=== PATIENT | female | born 1945 | race Two or more races ===

== ENCOUNTER 2021-12-11 11:16 | Inpatient (IN) | payer MEDICARE, OTHER ==
[~2021-12-11] VITALS: Ht 167.6 cm; Wt 115.7 kg
[2021-12-11] MEDS ORDERED: IV NS 0.9% 1,000 ML BAG IV ONE (11:30)
--- NOTE | 2021-12-11 11:49 | NUR ---
[id number] C/O ALTERED MENTAL STATUS, TACHY, FEBRILE. COLOSTOMY BAG L SIDE OF ABDOMEN. PT ATTCHED TO MONITOR. WARM BLANKET PROVIDED FOR COMFORT. WILL CONTINUE TO MONITOR.
[2021-12-11] MEDS ORDERED: MEROPENEM 1,000 MG in IV NS 0.9% 100 ML IV ONE (12:00)
[2021-12-11] MEDS ORDERED: ACETAMINOPHEN 650 MG/SUPP.RECT RC ONE ×2 (12:00→12:06)
[2021-12-11] MEDS ORDERED: VANCOMYCIN 1.5 GM in IV D5W 500 ML IV ONE (12:00)
[2021-12-11 12:13] LABS: BASOPHILS # (AUTO) 0.1 K/uL (0.0-0.2); BASOPHILS % (AUTO) 0.4 % (0.0-2.0); EOSINOPHILS % (AUTO) 0.3 % (0.0-6.0); HEMATOCRIT 34 % (33-45); HEMOGLOBIN 10.8 g/dL (11.5-14.8); LYMPHOCYTES # (AUTO) 1.7 K/uL (0.8-4.8); LYMPHOCYTES % (AUTO) 7.9 % (20.0-44.0); MEAN CORPUSCULAR HGB CONC 32 g/dl (31.0-36.0); MEAN CORPUSCULAR VOLUME 91 fL (82-100); MONOCYTES # (AUTO) 1.1 K/uL (0.1-1.30); MONOCYTES % (AUTO) 5.1 % (2.0-12.0); NEUTROPHILS # (AUTO) 18.5 K/uL (1.8-8.9); NEUTROPHILS % (AUTO) 86.3 % (43.0-81.0); PLATELET COUNT (AUTO) 375 K/uL (150-450); RED BLOOD CELL COUNT(AUTO) 3.75 MIL/uL (4.0-5.2); WHITE BLOOD COUNT (AUTO) 21.5 K/uL (4.3-11.0)
[2021-12-11 12:23] LABS: CALCIUM, SERUM 8.5 mg/dL (8.5-10.1); CARBON DIOXIDE 28 mmol/L (21-32); CHLORIDE 100 mmol/L (98-107); CREATININE 1.4 mg/dL (0.6-1.3); GLUCOSE 158 mg/dL (74-106); POTASSIUM 3.9 mmol/L (3.5-5.1); SODIUM SERUM 136 mmol/L (136-145); UREA NITROGEN, BLOOD 16 mg/dL (7-18)
[2021-12-11] MEDS ORDERED: AMMO225L14 TP (12:28)
[2021-12-11] MEDS ORDERED: DULO60CA64 PO (12:28)
[2021-12-11] MEDS ORDERED: LEVO50TA8 PO (12:28)
[2021-12-11] MEDS ORDERED: ACET-868 PO (12:28)
[2021-12-11] MEDS ORDERED: HEPA50008 SQ (12:28)
[2021-12-11] MEDS ORDERED: MORP2VIA IV (12:28)
[2021-12-11] MEDS ORDERED: CALC500T13 PO (12:28)
[2021-12-11] MEDS ORDERED: TPN ADD IV (12:28)
[2021-12-11] MEDS ORDERED: LANS30CA56 PO (12:28)
[2021-12-11 12:37] LABS: ALANINE AMINOTRANSFERASE 20 U/L (12-78); ALBUMIN 2.1 g/dL (3.4-5.0); ALKALINE PHOSPHATASE 77 U/L (46-116); ASPARTATE AMINOTRANSFERASE 17 U/L (15-37); BILIRUBIN,DIRECT 0.2 mg/dL (0.0-0.2); BILIRUBIN,TOTAL 0.6 mg/dL (0.2-1.0); TOTAL PROTEIN, SERUM 7.6 g/dL (6.4-8.2)
--- NOTE | 2021-12-11 12:49 | NUR ---
CALLED NURSING SUP FOR TELE BED.
--- NOTE | 2021-12-11 12:59 | NUR ---
COVID SWAB DONE AND SENT TO LAB
[2021-12-11] MEDS ORDERED: CALCIUM CARBONATE 500 MG TAB.CHEW PO PRN (13:00)
[2021-12-11] MEDS ORDERED: ONDANSETRON HCL/PF 4 MG/2 ML VIAL IVP PRN (13:00)
[2021-12-11] MEDS ORDERED: MAGNESIUM HYDROXIDE 30 ML UDC PO PRN (13:00)
[2021-12-11] MEDS ORDERED: MAG HYDROX/AL HYDROX/SIMETH 30 ML UDC PO PRN (13:00)
[2021-12-11] MEDS ORDERED: Z GUARD REMEDY 4 OZ OINT TP PRN (13:00)
[2021-12-11] MEDS ORDERED: ACETAMINOPHEN 325 MG TABLET PO PRN ×2 (13:00)
[2021-12-11] MEDS ORDERED: CEFEPIME 1 GM in IV D5W 50 ML IV SCH (13:00)
[2021-12-11] MEDS ORDERED: Medication Not On Formulary EA (Amino Acids 4.25%/D10w (Tpn Additives) 1 EA) IV SCH (13:00)
[2021-12-11] MEDS ORDERED: ZOLPIDEM TARTRATE 5 MG TABLET PO PRN (13:00)
[2021-12-11] MEDS ORDERED: HYDROCODONE/APAP 10/325MG TABLET PO PRN (13:00)
--- NOTE | 2021-12-11 14:44 | NUR ---
NURSING SUP GAVE TELE BED 117-1.
--- NOTE | 2021-12-11 15:05 | NUR ---
ATTEMPTED TO GIVE REPORT TO NURSE CONCEPCION, CURRENTLY ASSISTING A CRITICAL PATIENT, WILL CALL AGAIN
--- NOTE | 2021-12-11 15:37 | NUR ---
REPORT GIVEN TO DARLINE FOR FANI
--- NOTE | 2021-12-11 16:50 | NUR ---
PT TRANSFERRED TO ASSIGNED BED IN STABLE CONDITION WITH ACLS PROTOCOLS IN PLACE
--- NOTE | 2021-12-11 16:55 | NUR ---
RN NOTES PATIENT TRANSFERRED TO UNIT AT ROOM 117-2 [facility] [place], ACCOMPANIED BY 2 ER NURSES.
[2021-12-11] MEDS: IV NS 0.9% 1,000 ML IV PRN (17:32)
[2021-12-11] MEDS: CEFEPIME 2 GM in IV D5W 100 ML IV SCH (17:32)
--- NOTE | 2021-12-11 18:45 | NUR ---
RN NOTES PATIENT ABLE TO ASSIST W/ REPOSITIONING IN BED. A/O X2-3, AWARE OF SURROUNDINGS, NO CONFUSION NOTED. PICC LINE ON ALICJA INTACT AND PATENT, IVF STARTED AND INFUSING WELL. 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 COLOSTOMY INTACT AND PATENT ON LEFT LOWER ABDOMINAL SIDE. SAFETY MEASURES IN PLACE. CALL LIGHT PLACED W/IN REACH OF PATIENT.
--- NOTE | 2021-12-11 19:20 | NUR ---
RN NOTE RECEIVED PATIENT IN BED RESTING ALERT ORIENTED X2 VERBALLY RESPONSIVE ON ROOM AIR IV SITE IS ON RIGHT UPPER ARM PICC LINE INTACT PATENT ON IV HYDRATION NS 75CC/HR SAFETY MEASURE IMPLEMENT BED IN LOW POSITON AND LOCKED HEAD OF THE BED ELEVATED,CALL LIGHT WITHIN REACH CONTINUE TO MONITOR.
[2021-12-11 20:00] VITALS: BP 92/63
[2021-12-11] MEDS: HEPARIN SODIUM, PORCINE 5000 UNITS/1 ML VIAL SQ SCH (20:15)
[2021-12-12] VITALS: BP 129/72
[2021-12-12 04:00] VITALS: BP 105/64
--- NOTE | 2021-12-12 07:30 | NUR ---
RN NOTE PATIENT REMAINS ON ALERT ORIENTED X2 VERBALLY RESPONSIVE ON ROOM AIR NO SOB NOT ACUTE DISTRESS NOTED KEPT CLEAN AND DRY ALL THE TIME ENDORSE NEXT COMING SHIFT FOR CONTINUATION OF CARE
[2021-12-12] MEDS: LEVOTHYROXINE SODIUM 50 MCG TABLET PO SCH (07:32)
[2021-12-12] MEDS: PANTOPRAZOLE 40 MG TABLET.DR PO SCH (07:32)
[2021-12-12] MEDS: IV NS 0.9% 1,000 ML IV PRN (07:33)
[2021-12-12 07:41] LABS: BASOPHILS % (AUTO) 0.4 % (0.0-2.0); EOSINOPHILS % (AUTO) 1.9 % (0.0-6.0); HEMATOCRIT 34 % (33-45); LYMPHOCYTES # (AUTO) 1.2 K/uL (0.8-4.8); LYMPHOCYTES % (AUTO) 11.5 % (20.0-44.0); MEAN CORPUSCULAR HGB CONC 32 g/dl (31.0-36.0); MEAN CORPUSCULAR VOLUME 90 fL (82-100); MONOCYTES # (AUTO) 0.7 K/uL (0.1-1.30); MONOCYTES % (AUTO) 6.9 % (2.0-12.0); NEUTROPHILS # (AUTO) 8.5 K/uL (1.8-8.9); NEUTROPHILS % (AUTO) 79.3 % (43.0-81.0); PLATELET COUNT (AUTO) 311 K/uL (150-450); RED BLOOD CELL COUNT(AUTO) 3.78 MIL/uL (4.0-5.2); WHITE BLOOD COUNT (AUTO) 10.7 K/uL (4.3-11.0)
[2021-12-12 08:00] VITALS: BP 110/54
--- NOTE | 2021-12-12 08:01 | NUR ---
RN OPENING NOTES RECIEVED PT IN BED AWAKE A/O X2-3. PT IS ON RA SATING AT 100%. NO S/S OF RESP DISTRESS OR C/O OF PAIN AT THIS TIME. IV ACCESS IS AT ALICJA Addendum: 12/12/21 at 0805 by AGNES TOBIN RN CONTINUED... ALICJA PICC RUNNING NS AT 75 ML/HR. ALL SAFETY MEASURES IN PLACE, BED IN LOWEST LOCKED POSITION, SR U X2, CALL LIGHT WITHIN REACH. WILL CONTINUE TO MONITOR THROUGHOUT SHIFT.
[2021-12-12 08:09] LABS: CALCIUM, SERUM 7.9 mg/dL (8.5-10.1); CREATININE 1.1 mg/dL (0.6-1.3); MAGNESIUM 2.1 mg/dL (1.8-2.4); PHOSPHORUS 3.5 mg/dL (2.5-4.9); POTASSIUM 3.5 mmol/L (3.5-5.1)
[2021-12-12] MEDS: DULOXETINE HCL 30 MG CAPSULE.DR PO SCH (08:18)
[2021-12-12] MEDS: HEPARIN SODIUM, PORCINE 5000 UNITS/1 ML VIAL SQ SCH ×2 (08:19→21:19)
[2021-12-12] MEDS: AMMONIUM LACTATE 227 GM BOTTLE TP SCH (08:33)
--- NOTE | 2021-12-12 09:23 | NUR ---
WOUND CARE CONSULT: RECEIVED CONSULT FOR SACRAL WOUND BUT NO SACRAL WOUND NOTED. PT NOTED TO BE OBESE WITH SOME SKIN DISCOLORATION TO ABDOMEN AND BUTTOCKS/THIGHS AND LOWER LEGS WITH DRY SCRATCH BARRIOS ON THIGHS, PRESENT ON ADMISSION. ILEOSTOMY NOTED. PT IS INCONTINENT. RECOMMENDATIONS MADE FOR SKIN PROTECTION AND DISCUSSED WITH NURSING STAFF.MD IN AGREEMENT WITH PLAN OF CARE.
[2021-12-12 12:00] VITALS: BP 116/62
[2021-12-12] MEDS: VANCOMYCIN 1.25 GM in IV D5W 250 ML IV SCH (14:36)
[2021-12-12 16:19] VITALS: BP 107/66
[2021-12-12] MEDS: CEFEPIME 2 GM in IV D5W 100 ML IV SCH (16:32)
--- NOTE | 2021-12-12 18:04 | NUR ---
RN CLOSING NOTES PT IS IN BED RESTING, A/O X 3, NO S/S OF RESP DISTRESS OR C/O PAIN AT THIS TIME. PT TOLERATED ALL TREATMENTS. PT IS ON RA SATING AT 100%. IV ACCESS AT ALICJA WITH NS RUNNING AT 75CC/HR. FLUSHING WELL AND PATENT. ALL SAFETY MEASURES IN PLACE, BED IN LOWEST LOCKED POSITION, SR UP X 2, CALL LIGHT WITHIN REACH. WILL ENDORSE TO LINOTYPE MACHINIST NURSE FOR FANI.
--- NOTE | 2021-12-12 19:40 | NUR ---
RN OPENING NOTES RECEIVED PT IN BED AWAKE, A/O X 2-3 AND VERBALLY RESPONSIVE. ON ROOM AIR AND PT TOLERATED WELL. BREATHING EVEN AND UNLABORED. IV ACCESS ON ALICJA PICC WITH NS RUNNING AT 75CC/HR. NO BLEEDING NOTED. NO C/O PAIN OR DISCOMFORT. NO ACUTE DISTRESS. ALL SAFETY MEASURES IN PLACE, BED IN LOWEST POSITION AND LOCKED. SIDE RAILS UP X2, PLACE CALL LIGHT WITHIN REACH. WILL CONTINUE TO MONITOR
[2021-12-12 20:00] VITALS: BP 110/64
[2021-12-13] VITALS: BP 117/58
[2021-12-13] MEDS: IV NS 0.9% 1,000 ML IV PRN ×2 (01:30→15:26)
[2021-12-13 04:00] VITALS: BP 106/53
--- NOTE | 2021-12-13 06:40 | NUR ---
RN CLOSING NOTES PT IN BED SLEEPING, BUT AROUSABLE, A/O X 2-3 AND VERBALLY RESPONSIVE. ON ROOM AIR, O2 SAT 99% AND PT TOLERATED WELL. BREATHING EVEN AND UNLABORED. NO SOB NOTED. IV ACCESS ON ALICJA PICC WITH NS RUNNING AT 75CC/HR. NO BLEEDING NOTED. NO C/O PAIN OR DISCOMFORT. NO ACUTE DISTRESS. DUE MED GIVEN ORDERED. COOPERATIVE WITH CARE. NOTED LEFT LOWER WITH COLOSTOMY BAG, EMPTIED, 400CC OUTPUT. ALL SAFETY MEASURES IN PLACE, BED IN LOWEST POSITION AND LOCKED. SIDE RAILS UP X2, PLACE CALL LIGHT WITHIN REACH. WILL ENDORSE TO MORNING SHIFT NURSE.
[2021-12-13 07:18] LABS: BASOPHILS # (AUTO) 0.1 K/uL (0.0-0.2); BASOPHILS % (AUTO) 0.6 % (0.0-2.0); EOSINOPHILS % (AUTO) 3.2 % (0.0-6.0); HEMATOCRIT 30 % (33-45); HEMOGLOBIN 9.8 g/dL (11.5-14.8); LYMPHOCYTES # (AUTO) 1.3 K/uL (0.8-4.8); LYMPHOCYTES % (AUTO) 13.4 % (20.0-44.0); MEAN CORPUSCULAR HGB CONC 32 g/dl (31.0-36.0); MEAN CORPUSCULAR VOLUME 89 fL (82-100); MONOCYTES # (AUTO) 0.5 K/uL (0.1-1.30); MONOCYTES % (AUTO) 5.4 % (2.0-12.0); NEUTROPHILS # (AUTO) 7.7 K/uL (1.8-8.9); NEUTROPHILS % (AUTO) 77.4 % (43.0-81.0); PLATELET COUNT (AUTO) 366 K/uL (150-450)
--- NOTE | 2021-12-13 07:30 | NUR ---
RN OPENING NOTE PT IN BED SLEEPING, BUT AROUSABLE, A/O X 2-3 AND VERBALLY RESPONSIVE. ON ROOM AIR, O2 SAT 99% AND PT TOLERATING WELL. BREATHING EVEN AND UNLABORED. NO SOB NOTED. IV ACCESS ON ALICJA PICC WITH NS RUNNING AT 75CC/HR. NO BLEEDING NOTED. NO C/O PAIN OR DISCOMFORT. NO ACUTE DISTRESS. NOTED LEFT LOWER WITH COLOSTOMY BAG. ALL SAFETY MEASURES IN PLACE, BED IN LOWEST POSITION AND LOCKED. SIDE RAILS UP X2, PLACE CALL LIGHT WITHIN REACH. WILL CONTINUE TO MONITOR.
[2021-12-13 07:31] LABS: CALCIUM, SERUM 7.2 mg/dL (8.5-10.1); CREATININE 0.9 mg/dL (0.6-1.3); POTASSIUM 3.4 mmol/L (3.5-5.1)
[2021-12-13] MEDS: LEVOTHYROXINE SODIUM 50 MCG TABLET PO SCH (07:43)
[2021-12-13] MEDS: PANTOPRAZOLE 40 MG TABLET.DR PO SCH (07:43)
[2021-12-13 08:00] VITALS: BP 106/75
[2021-12-13] MEDS: HEPARIN SODIUM, PORCINE 5000 UNITS/1 ML VIAL SQ SCH ×2 (09:53→21:22)
[2021-12-13] MEDS: DULOXETINE HCL 30 MG CAPSULE.DR PO SCH (09:53)
[2021-12-13] MEDS: AMMONIUM LACTATE 227 GM BOTTLE TP SCH (09:54)
[2021-12-13] MEDS ORDERED: POTASSIUM CHLORIDE 20 MEQ POWDER PACKET GT SCH (10:00)
[2021-12-13 12:00] VITALS: BP 107/72
[2021-12-13] MEDS: VANCOMYCIN 1.25 GM in IV D5W 250 ML IV SCH (14:58)
[2021-12-13 16:00] VITALS: BP 110/70
[2021-12-13] MEDS: CEFEPIME 2 GM in IV D5W 100 ML IV SCH (17:21)
--- NOTE | 2021-12-13 18:45 | NUR ---
RN CLOSING NOTE PATIENT REMAINED STABLE THROUGHOUT SHIFT. PT IN BED SLEEPING, BUT AROUSABLE, A/O X 2-3 AND VERBALLY RESPONSIVE. ON ROOM AIR, O2 SAT 99% AND PT TOLERATING WELL. BREATHING EVEN AND UNLABORED. NO SOB NOTED. IV ACCESS ON ALICJA PICC WITH NS RUNNING AT 75CC/HR. NO BLEEDING NOTED. NO C/O PAIN OR DISCOMFORT. NO ACUTE DISTRESS. NOTED LEFT LOWER WITH COLOSTOMY BAG. ALL DUE MEDS ADM PER MD ORDER. ALL NEEDS MET. ALL SAFETY MEASURES IN PLACE, BED IN LOWEST POSITION AND LOCKED. SIDE RAILS UP X2, PLACE CALL LIGHT WITHIN REACH. WILL ENDORSE TO INTERNAL REVENUE AGENT RN.
--- NOTE | 2021-12-13 19:53 | NUR ---
RN OPENING NOTES RECEIVED PT IN BED AWAKE, A/O X 2-3 AND VERBALLY RESPONSIVE. ON ROOM AIR AND PT TOLERATED WELL. BREATHING EVEN AND UNLABORED. IV ACCESS ON ALICJA PICC WITH NS RUNNING AT 75CC/HR. NO BLEEDING NOTED. NO C/O PAIN OR DISCOMFORT. NO ACUTE DISTRESS. NOTED LEFT LOWER ABDOMEN WITH COLOSTOMY BAG. SKIN INTACT AROUND THE BAG. ALL SAFETY MEASURES IN PLACE, BED IN LOWEST POSITION AND LOCKED. SIDE RAILS UP X2, PLACE CALL LIGHT WITHIN REACH. WILL CONTINUE TO MONITOR
[2021-12-13 20:00] VITALS: BP 104/56
[2021-12-14 04:00] VITALS: BP 105/60
--- NOTE | 2021-12-14 06:43 | NUR ---
RN CLOSING NOTES PT IN BED AWAKE, A/O X 2-3 AND VERBALLY RESPONSIVE. ON ROOM AIR, O2 SAT 94% AND PT TOLERATED WELL. BREATHING EVEN AND UNLABORED. IV ACCESS ON ALICJA PICC WITH NS RUNNING AT 75CC/HR. NO BLEEDING NOTED. NO C/O PAIN OR DISCOMFORT. NO ACUTE DISTRESS. DUE MEDS GIVEN ORDERED. NOTED LEFT LOWER ABDOMEN WITH COLOSTOMY BAG. SKIN INTACT AROUND THE BAG. ALL SAFETY MEASURES IN PLACE, BED IN LOWEST POSITION AND LOCKED. SIDE RAILS UP X2, PLACE CALL LIGHT WITHIN REACH. WILL ENDORSE TO [facility] SHIFT NURSE.
[2021-12-14 07:06] LABS: CALCIUM, SERUM 7.8 mg/dL (8.5-10.1); CREATININE 0.8 mg/dL (0.6-1.3); POTASSIUM 3.7 mmol/L (3.5-5.1)
[2021-12-14] MEDS: IV NS 0.9% 1,000 ML IV PRN (07:23)
--- NOTE | 2021-12-14 07:30 | NUR ---
RN OPENING NOTES RECEIVED PATIENT IN BED AWAKE, A/O X 2-3 AND VERBALLY RESPONSIVE. ON ROOM AIR, O2 SAT 94% WITH EVEN CHEST EXPANSION, NO S/SX OF RESPIRATORY DISTRESS NOTED. IV ACCESS ON ALICJA PICC WITH NS RUNNING AT 75CC/HR. LEFT LOWER ABDOMEN COLOSTOMY BAG IN PLACE. SKIN INTACT AROUND THE BAG. ALL SAFETY MEASURES IN PLACE, BED IN LOWEST POSITION AND LOCKED. SIDE RAILS UP X2, PLACE CALL LIGHT WITHIN REACH. WILL CONTINUE TO MONITOR PATIENT
[2021-12-14] MEDS: DULOXETINE HCL 30 MG CAPSULE.DR PO SCH (08:50)
[2021-12-14] MEDS: PANTOPRAZOLE 40 MG TABLET.DR PO SCH (08:50)
[2021-12-14] MEDS: LEVOTHYROXINE SODIUM 50 MCG TABLET PO SCH (08:52)
[2021-12-14] MEDS: HEPARIN SODIUM, PORCINE 5000 UNITS/1 ML VIAL SQ SCH ×2 (08:54→21:43)
[2021-12-14 12:00] VITALS: BP 105/60
[2021-12-14] MEDS: AMMONIUM LACTATE 227 GM BOTTLE TP SCH (12:12)
--- NOTE | 2021-12-14 12:12 | NUR ---
D/W SALEEM jade pt is tolerating mech soft texture and thin liquids. Pt is alert, agreeable to be visited, and interactive. dentition: missing upper premorbid diet : regular to soft cxr: clear oral peripheral: wfl oral phase: appears to be wfl given missing upper dentition pharyngeal phase: wfl no s/sx of aspiration observed with the current texture at this time review of safe swallow strategies provided. Pt returned with demonstration. recommending: mech soft and thin meds: whole or cut in half with food/water follow aspiration precautions
[2021-12-14] MEDS: VANCOMYCIN 1.25 GM in IV D5W 250 ML IV SCH (13:26)
[2021-12-14] MEDS: CEFEPIME 2 GM in IV D5W 100 ML IV SCH (15:49)
--- NOTE | 2021-12-14 18:50 | NUR ---
RN CLOSING NOTES PATIENT IN BED AWAKE, A/O X 2-3 AND VERBALLY RESPONSIVE. ON ROOM AIR WITH NO S/SX OF RESPIRATORY DISTRESS NOTED THROUGH OUT SHIFT. PATIENT WAS SEEN BY SPEECH THERAPIST. PATIENT IS TOLERATING REGULAR-SOFT DIET. LEFT LOWER ABDOMEN COLOSTOMY BAG IN PLACE WITH SMALL BROWN STOOL IN BAG. ALL ORDERS CARRIED OUT AND NEEDS MET. ALL SAFETY MEASURES IN PLACE, BED IN LOWEST POSITION AND LOCKED. SIDE RAILS UP X2, PLACE CALL LIGHT WITHIN REACH. WILL ENDORSE TO CIGARETTE TIPPER NURSE FOR FANI
--- NOTE | 2021-12-14 19:40 | NUR ---
RN OPENING NOTES RECEIVED PT IN BED AWAKE, A/O X 2-3 AND VERBALLY RESPONSIVE. ON ROOM AIR AND PT TOLERATED WELL. BREATHING EVEN AND UNLABORED. NO SOB NOTED. IV ACCESS ON ALICJA PICC WITH NS RUNNING AT 75CC/HR. NO BLEEDING NOTED. NO C/O PAIN OR DISCOMFORT. NO ACUTE DISTRESS. NOTED LEFT LOWER ABDOMEN WITH COLOSTOMY BAG. ALL SAFETY MEASURES IN PLACE, BED IN LOWEST POSITION AND LOCKED. SIDE RAILS UP X2, PLACE CALL LIGHT WITHIN REACH. WILL CONTINUE TO MONITOR
[2021-12-14 20:00] VITALS: BP 114/50
[2021-12-15] MEDS: IV NS 0.9% 1,000 ML IV PRN ×2 (03:54→20:44)
[2021-12-15 04:00] VITALS: BP 118/60
[2021-12-15 06:46] LABS: BASOPHILS # (AUTO) 0.1 K/uL (0.0-0.2); BASOPHILS % (AUTO) 1.3 % (0.0-2.0); EOSINOPHILS % (AUTO) 4.4 % (0.0-6.0); HEMATOCRIT 30 % (33-45); HEMOGLOBIN 9.6 g/dL (11.5-14.8); LYMPHOCYTES # (AUTO) 1.4 K/uL (0.8-4.8); LYMPHOCYTES % (AUTO) 19.7 % (20.0-44.0); MEAN CORPUSCULAR HGB CONC 32 g/dl (31.0-36.0); MEAN CORPUSCULAR VOLUME 89 fL (82-100); MONOCYTES # (AUTO) 0.5 K/uL (0.1-1.30); MONOCYTES % (AUTO) 6.8 % (2.0-12.0); NEUTROPHILS # (AUTO) 4.7 K/uL (1.8-8.9); NEUTROPHILS % (AUTO) 67.8 % (43.0-81.0); PLATELET COUNT (AUTO) 406 K/uL (150-450); RED BLOOD CELL COUNT(AUTO) 3.39 MIL/uL (4.0-5.2)
--- NOTE | 2021-12-15 06:48 | NUR ---
RN CLOSING NOTES PT IN BED AWAKE, A/O X 2-3 AND VERBALLY RESPONSIVE. ON ROOM AIR, O2 SAT 99% AND PT TOLERATED WELL. BREATHING EVEN AND UNLABORED. IV ACCESS ON ALICJA PICC WITH NS RUNNING AT 75CC/HR. NO BLEEDING NOTED. NO C/O PAIN OR DISCOMFORT. NO ACUTE DISTRESS. DUE MEDS GIVEN ORDERED. NOTED LEFT LOWER ABDOMEN WITH COLOSTOMY BAG. SKIN INTACT AROUND THE BAG. ALL SAFETY MEASURES IN PLACE, BED IN LOWEST POSITION AND LOCKED. SIDE RAILS UP X2, PLACE CALL LIGHT WITHIN REACH. WILL ENDORSE TO MORNING SHIFT NURSE.
[2021-12-15 07:17] LABS: CALCIUM, SERUM 7.5 mg/dL (8.5-10.1); CREATININE 0.7 mg/dL (0.6-1.3); MAGNESIUM 1.9 mg/dL (1.8-2.4); PHOSPHORUS 3.2 mg/dL (2.5-4.9); POTASSIUM 3.6 mmol/L (3.5-5.1)
--- NOTE | 2021-12-15 07:43 | NUR ---
RN OPENING NOTE RECEIVED PATIENT IN BED AWAKE, A/O X 2-3 AND VERBALLY RESPONSIVE. ON ROOM AIR, O2 SAT 99% NO SOB, NO RESPIRATORY DISTRESS NOTED AND BREATHING EXPANSION SYMMETRICAL. IV ACCESS ON ALICJA PICC WITH NS RUNNING AT 75CC/HR. LEFT LOWER ABDOMEN COLOSTOMY BAG IN PLACE. SKIN INTACT AROUND THE SITE AND BAG. ALL SAFETY MEASURES IN PLACE, BED IN LOWEST POSITION AND LOCKED. TWO SIDE RAILS ARE UP. CALL LIGHT WITHIN REACH. WILL CONTINUE TO MONITOR.
[2021-12-15] MEDS: LEVOTHYROXINE SODIUM 50 MCG TABLET PO SCH (09:56)
[2021-12-15] MEDS: DULOXETINE HCL 30 MG CAPSULE.DR PO SCH (09:56)
[2021-12-15] MEDS: PANTOPRAZOLE 40 MG TABLET.DR PO SCH (09:56)
[2021-12-15] MEDS: AMMONIUM LACTATE 227 GM BOTTLE TP SCH (09:56)
[2021-12-15] MEDS: HEPARIN SODIUM, PORCINE 5000 UNITS/1 ML VIAL SQ SCH ×2 (09:58→20:46)
[2021-12-15 12:00] VITALS: BP 116/47
[2021-12-15] MEDS: CEFEPIME 2 GM in IV D5W 100 ML IV SCH (15:49)
[2021-12-15 18:58] LABS: BAND % (MANUAL) 1 % (0.0-5.0); EOSINOPHILS % (MANUAL) 5 % (0-4); LYMPHOCYTES % (MANUAL) 19 % (16-48); MONOCYTES % (MANUAL) 6 % (0-11.0); NEUTROPHILS % (MANUAL) 69 (42-76)
--- NOTE | 2021-12-15 19:35 | NUR ---
RN NOTE PT RECEIVED IN BED. PT IS ON ROOM AIR SHOWING NO S/S OF RESP DISTRESS/SOB. BREATHING EVEN AND UNLABORED. PT IS ALERT AND ORIENTED X2-3, ABLE TO VERBALIZE NEEDS. LEFT ABDOMINAL COLOSTOMY BAG NOTED. IV ACCESS ON RIGHT UPPER ARM PICC. LINE FLUSHED, PATENT, AND INTACT INFUSING NS AT 75 CC/HR. ALL SAFETY MEASURES IMPLEMENTED. CALL LIGHT WITHIN REACH. HOB ELEVATED. BED LOCKED AND IN LOWEST POSITION. SIDE RAILS UP. WILL CONTINUE TO MONITOR AND ASSESS FOR ANY CHANGES DURING SHIFT.
[2021-12-15 20:00] VITALS: BP 130/68
[2021-12-16 04:00] VITALS: BP 145/85
--- NOTE | 2021-12-16 07:15 | NUR ---
RN NOTE NO CHANGES IN PT CONDITION DURING SHIFT. PT ON ROOM AIR SHOWING NO S/SX OF RESP DISTRESS/SOB. BREATHING EVEN AND UNLABORED. PT IS A/OX2-3. IV ACCESS NOTED ON RIGHT UPPER ARM PICC. LINE FLUSHED, PATENT, AND INTACT RUNNING NS AT 75 CC/HR. ALL SAFETY MEASURES IMPLEMENTED. PT KEPT CLEAN AND COMFORTABLE. ALL DUE MEDS GIVEN ORDERED. WILL ENDORSE TO MORNING SHIFT RN FOR FANI.
--- NOTE | 2021-12-16 07:20 | NUR ---
RN OPENING NOTE RECEIVED PATIENT IN BED AWAKE, A/O X 2-3 AND VERBALLY RESPONSIVE. ON ROOM AIR, NO SOB, BREATHING EVEN AND UNLABORED. IV ACCESS ON ALICJA PICC INTACT WITH NS RUNNING AT 75CC/HR. LEFT LOWER ABDOMEN COLOSTOMY BAG IN PLACE, BAG INTACT. SAFETY MEASURES IN PLACE, BED IN LOWEST AND LOCKED POSITION . SIDE RAILS UP X2. CALL LIGHT WITHIN REACH. WILL CONTINUE TO MONITOR.
[2021-12-16] MEDS: DULOXETINE HCL 30 MG CAPSULE.DR PO SCH (08:42)
[2021-12-16] MEDS: PANTOPRAZOLE 40 MG TABLET.DR PO SCH (08:42)
[2021-12-16] MEDS: LEVOTHYROXINE SODIUM 50 MCG TABLET PO SCH (08:42)
[2021-12-16] MEDS: HEPARIN SODIUM, PORCINE 5000 UNITS/1 ML VIAL SQ SCH ×2 (08:44→20:27)
[2021-12-16] MEDS: AMMONIUM LACTATE 227 GM BOTTLE TP SCH (08:49)
[2021-12-16] MEDS: IV NS 0.9% 1,000 ML IV PRN (10:24)
[2021-12-16 11:22] LABS: CALCIUM, SERUM 8.2 mg/dL (8.5-10.1); CREATININE 0.8 mg/dL (0.6-1.3); POTASSIUM 3.9 mmol/L (3.5-5.1)
[2021-12-16 12:00] VITALS: BP 115/70
[2021-12-16] MEDS: CEFEPIME 2 GM in IV D5W 100 ML IV SCH (16:19)
--- NOTE | 2021-12-16 18:56 | NUR ---
RN CLOSING NOTES PATIENT IN BED AWAKE, A/O X 2-3 AND VERBALLY RESPONSIVE. NO SIGNS OF ACUTE DISTRESS NOTED.ON ROOM AIR, NO SOB, BREATHING EVEN AND UNLABORED. IV ACCESS ON RIGHT UPPER ARM PICC LINE INTACT WITH NS RUNNING AT 75CC/HR. LEFT LOWER ABDOMEN COLOSTOMY BAG IN PLACE, BAG INTACT. SAFETY MEASURES IN PLACE, BED IN LOWEST AND LOCKED POSITION . SIDE RAILS UP X2. CALL LIGHT WITHIN REACH. WILL ENDORSE TO NEXT SHIFT FOR FANI.
--- NOTE | 2021-12-16 19:30 | NUR ---
RN OPENING NOTES RECEIVED PATIENT IN BED AWAKE, A/O X 2-3 AND VERBALLY RESPONSIVE. PT STABLE ON ROOM AIR. NO SOB OR S/S OF RESPIRATORY DISTRESS. IV ACCESS ON ALICJA PICC LINE RUNNING NS @ 75CC/HR. LEFT LOWER ABDOMEN COLOSTOMY BAG IN PLACE, BAG INTACT. SAFETY PRECAUTIONS IN PLACE. BED IN LOWEST LOCKED POSITION, HOB ELEVATED, SIDE RAILS UP X2, AND CALL LIGHT AND TABLE WITHIN REACH. WILL CONTINUE WITH PLAN OF CARE.
[2021-12-16 20:00] VITALS: BP 115/46
[2021-12-17] MEDS: IV NS 0.9% 1,000 ML IV PRN ×2 (02:50→15:30)
[2021-12-17 04:00] VITALS: BP 121/52
--- NOTE | 2021-12-17 06:40 | NUR ---
RN CLOSING NOTES PATIENT IN BED AWAKE, A/O X 2-3 AND VERBALLY RESPONSIVE. PT STABLE ON ROOM AIR. NO SOB OR S/S OF RESPIRATORY DISTRESS. IV ACCESS ON ALICJA PICC LINE RUNNING NS @ 75CC/HR. LEFT LOWER ABDOMEN ILEOSTOMY BAG IN PLACE, BAG INTACT. ALL NEEDS MET AT THIS TIME. SAFETY PRECAUTIONS IN PLACE AT ALL TIMES. BED IN LOWEST LOCKED POSITION, HOB ELEVATED, SIDE RAILS UP X2, AND CALL LIGHT AND TABLE WITHIN REACH. WILL ENDORSE TO ONCOMING SHIFT FOR FANI.
--- NOTE | 2021-12-17 07:25 | NUR ---
RN OPENING NOTES RECEIVED PATIENT IN BED RESTING WITH EYES CLOSE. PATIENT ON ROOM AIR TOLERATING WELL. BREATHING EVEN AND UNLABORED. NO SOB OR S/S OF RESPIRATORY DISTRESS. IV ACCESS ON ALICJA PICC LINE RUNNING NS @ 75CC/HR. LEFT LOWER ABDOMEN COLOSTOMY BAG IN PLACE, BAG INTACT. SAFETY PRECAUTIONS IN PLACE. BED IN LOWEST LOCKED POSITION, HOB ELEVATED, SIDE RAILS UP X2, AND CALL LIGHT AND TABLE WITHIN REACH. WILL CONTINUE TO MONITOR PATIENT ACCORDINGLY.
[2021-12-17] MEDS: PANTOPRAZOLE 40 MG TABLET.DR PO SCH (08:36)
[2021-12-17] MEDS: LEVOTHYROXINE SODIUM 50 MCG TABLET PO SCH (08:36)
[2021-12-17] MEDS: ENSURE ENLIVE 237 ML LIQUID (VANILLA) PO SCH (08:36)
[2021-12-17] MEDS: DULOXETINE HCL 30 MG CAPSULE.DR PO SCH (08:36)
[2021-12-17] MEDS: HEPARIN SODIUM, PORCINE 5000 UNITS/1 ML VIAL SQ SCH ×2 (08:38→21:17)
[2021-12-17] MEDS: AMMONIUM LACTATE 227 GM BOTTLE TP SCH (08:46)
[2021-12-17 11:11] LABS: CALCIUM, SERUM 8.6 mg/dL (8.5-10.1); CREATININE 0.8 mg/dL (0.6-1.3)
[2021-12-17 12:00] VITALS: BP 110/68
[2021-12-17] MEDS: CEFEPIME 2 GM in IV D5W 100 ML IV SCH (15:30)
--- NOTE | 2021-12-17 17:08 | NUR ---
RN NOTE ATTEMPTED TO REACH DAUGHTER [place] FOR CONSENT FOR CT OF ABDOMEN AND PELVIS WITH CONTRAST, WAS UNABLE TO REACH DAUGHTER. LEFT A MESSAGE.
[2021-12-17 19:02] LABS: IRON, SERUM 33 ug/dl (50-175); TOTAL IRON BINDING CAPACITY 171 ug/dl (250-450)
[2021-12-17 19:23] LABS: FERRITIN 192 ng/mL (8-388)
--- NOTE | 2021-12-17 19:51 | NUR ---
RN CLOSING NOTES PATIENT REMAINS IN STABLE CONDITION THROUGHOUT SHIFT. PATIENT ON ROOM AIR TOLERATING WELL. BREATHING EVEN AND UNLABORED. NO SOB OR S/S OF RESPIRATORY DISTRESS. IV ACCESS ON ALICJA PICC LINE RUNNING NS @ 75CC/HR. LEFT LOWER ABDOMEN COLOSTOMY BAG IN PLACE, BAG INTACT. ALL DUE MEDS GIVEN ORDERED. KEPT PATIENT CLEAN DRY AND COMFORTABLE. ALL NEEDS ATTENDED. SAFETY PRECAUTIONS IN PLACE. BED IN LOWEST LOCKED POSITION, HOB ELEVATED, SIDE RAILS UP X2, AND CALL LIGHT AND TABLE WITHIN REACH. ENDORSED TO ONCOMING NURSE FOR CONTINUITY OF CARE.
[2021-12-17 22:00] VITALS: BP 119/80
[2021-12-18 04:00] VITALS: BP 122/70
[2021-12-18] MEDS: IV NS 0.9% 1,000 ML IV PRN (06:02)
--- NOTE | 2021-12-18 06:27 | NUR ---
RN notes Resting comfortably in bed with distress noted. Breathing even and unlabored. Room air well tolerated. Alert and oriented x 3. Verbally able to communicate needs. No complaint of pain. Vital signs wnl. Kept clean and dry. No significant change of condition. Kept clean and dry. Will endorse to next shift for continuity of care.
--- NOTE | 2021-12-18 08:11 | NUR ---
POTATO CHIP FRYER OPENING NOTE Patient in bed, asleep. A/O x 4. On room air, breathing evenly and unlabored. No SOB or s/s of distress noted. IV access on ALICJA PICC line infusing NS at 75 ml/hr. Colostomy noted on LLQ of abdomen. Safety precautions in place: bed inlow, locked position; siderails up x 2; call light within reach. Will continue to monitor. Addendum: 12/18/21 at 1120 by MIKO CHIU RN CORRECTION: Ileostomy noted on LLQ of abdomen.
[2021-12-18] MEDS ORDERED: IV NS 0.9% 250 ML IV ONE (08:29)
[2021-12-18] MEDS ORDERED: IOHEXOL-300 100 ML VIAL IV ONE (08:29)
[2021-12-18] MEDS: LEVOTHYROXINE SODIUM 50 MCG TABLET PO SCH (08:56)
[2021-12-18] MEDS: DULOXETINE HCL 30 MG CAPSULE.DR PO SCH (08:56)
[2021-12-18] MEDS: PANTOPRAZOLE 40 MG TABLET.DR PO SCH (08:56)
[2021-12-18] MEDS: HEPARIN SODIUM, PORCINE 5000 UNITS/1 ML VIAL SQ SCH (08:58)
[2021-12-18] MEDS: AMMONIUM LACTATE 227 GM BOTTLE TP SCH (09:02)
[2021-12-18] MEDS: ENSURE ENLIVE 237 ML LIQUID (VANILLA) PO SCH (09:11)
[2021-12-18 12:00] VITALS: BP 142/79
[2021-12-18] MEDS ORDERED: SOD FERRIC GLUC 125 MG in IV NS 0.9% 100 ML IV SCH (14:00)
[2021-12-18] MEDS: CEFEPIME 2 GM in IV D5W 100 ML IV SCH (15:40)
[2021-12-18 16:00] VITALS: BP 142/79
--- NOTE | 2021-12-18 19:44 | NUR ---
VISCERA WASHER CLOSING NOTE Patient in bed, resting. A/O x 4. On room air, breathing evenly and unlabored. No SOB or s/s of distress noted. IV access on ALICJA PICC line infusing NS at 75 ml/hr. Ileostomy noted on LLQ of abdomen. Due meds given. All needs attended to. Safety precautions in place: bed inlow, locked position; siderails up x 2; call light within reach. Will endorse to smudger nurse for FANI.
[2021-12-18 19:59] LABS: OCCULT BLOOD STOOL NEGATIVE (NEGATIVE)
[2021-12-18 20:00] VITALS: BP 125/82
--- NOTE | 2021-12-18 20:00 | NUR ---
COMMUNICATIONS EQUIPMENT SUPERVISOR NOTE PT IN BED AWAKE. A/O X 3, NO DISTRESS OR DISCOMFORT NOTED. DENIES PAIN. ON TELE MONITOR A FIB HR 101 CONTROLLED. SIDE RAILS UP X 2 AND CALL LIGHT WITHIN REACH. VSS. CONTINUE TO MONITOR HER.
[2021-12-18 22:05] LABS: BILIRUBIN,URINE NEGATIVE (NEGATIVE); COLOR,URINE YELLOW (YELLOW); LEUKOCYTE ESTERASE ,URINE MODERATE (NEGATIVE); NITRITE, URINE NEGATIVE (NEGATIVE); PROTEIN,URINE 30 mg/dl (NEGATIVE); UGLUCOSE NEGATIVE (NEGATIVE); UROBILINOGEN,URINE 0.2 EU/dL (0.2)
[2021-12-18 22:19] LABS: BACTERIA,URINE 3+ /HPF (None Seen); RBC,URINE 21-50 /HPF (0-2); WBC,URINE 51-80 /HPF (0-3)
[2021-12-19] VITALS: BP 115/72
[2021-12-19] MEDS: IV NS 0.9% 1,000 ML IV PRN (00:20)
[2021-12-19 04:00] VITALS: BP 140/72
[2021-12-19 07:25] LABS: BASOPHILS # (AUTO) 0.1 K/uL (0.0-0.2); BASOPHILS % (AUTO) 0.8 % (0.0-2.0); EOSINOPHILS % (AUTO) 3.4 % (0.0-6.0); HEMATOCRIT 32 % (33-45); HEMOGLOBIN 10.5 g/dL (11.5-14.8); LYMPHOCYTES # (AUTO) 1.1 K/uL (0.8-4.8); LYMPHOCYTES % (AUTO) 14.6 % (20.0-44.0); MEAN CORPUSCULAR HGB CONC 33 g/dl (31.0-36.0); MEAN CORPUSCULAR VOLUME 89 fL (82-100); MONOCYTES # (AUTO) 0.6 K/uL (0.1-1.30); MONOCYTES % (AUTO) 7.5 % (2.0-12.0); NEUTROPHILS # (AUTO) 5.8 K/uL (1.8-8.9); NEUTROPHILS % (AUTO) 73.7 % (43.0-81.0); PLATELET COUNT (AUTO) 431 K/uL (150-450); RED BLOOD CELL COUNT(AUTO) 3.62 MIL/uL (4.0-5.2); WHITE BLOOD COUNT (AUTO) 7.8 K/uL (4.3-11.0)
[2021-12-19 07:49] LABS: CALCIUM, SERUM 8.9 mg/dL (8.5-10.1); CREATININE 0.8 mg/dL (0.6-1.3); POTASSIUM 4.2 mmol/L (3.5-5.1)
[2021-12-19] MEDS ORDERED: FERR325T23 PO (09:19)
[2021-12-19] MEDS: PANTOPRAZOLE 40 MG TABLET.DR PO SCH (10:26)
[2021-12-19] MEDS: ENSURE ENLIVE 237 ML LIQUID (VANILLA) PO SCH (10:26)
[2021-12-19] MEDS: DULOXETINE HCL 30 MG CAPSULE.DR PO SCH (10:26)
[2021-12-19] MEDS: AMMONIUM LACTATE 227 GM BOTTLE TP SCH (10:26)
[2021-12-19] MEDS: LEVOTHYROXINE SODIUM 50 MCG TABLET PO SCH (10:26)
--- NOTE | 2021-12-19 14:43 | NUR ---
DISCHARGE TO SNF INSTRUCTION GIVEN ORDERED. ALL QUESTIONS AND CONCERNS ADDRESSED. PATIENT VERBALIZED UNDERSTANDING. MEDICATION RECONCILIATION FOR COMPLETED AND COPY GIVEN TO PATIENT. TELEMETRY UNIT RETURNED TO STATION. REPORT GIVEN TO DILLON AT [facility]. PATIENT TRANSPORTED WITH ALL PERSONAL BELONGINGS. NO DISTRESS NOTED AT TIME OF DEPARTURE.
[2021-12-20 01:06] LABS: CANCER AG, 125 13.6 U/mL (0.0-38.1)
[2021-12-20 05:07] LABS: IMMUNOGLOBULIN A, SERUM 330 mg/dL (64-422); IMMUNOGLOBULIN G, SERUM 1678 mg/dL (586-1602); IMMUNOGLOBULIN M, SERUM 70 mg/dL (26-217)
[2021-12-20 13:06] LABS: *SPE A/G RATIO 0.6 (0.7-1.7); *SPE ALPHA-1-GLOBULIN 0.3 g/dL (0.0-0.4); *SPE ALPHA-2-GLOBULIN 1.2 g/dL (0.4-1.0); *SPE BETA GLOBULIN 0.9 g/dL (0.7-1.3); *SPE M-SPIKE Not Observed g/dL (Not Observed)
== END 2021-12-19 14:29 | DRG 871 ==
LOC: ER 11:22 → TELE1 14:47 → MEDSG1 12-13 18:05 → TELE1 12-18 08:10
PROVIDERS: ADMIT Nurse Practitioner Acute Care; ATTEND Internal Medicine
DX: A41.9 Sepsis, unspecified organism (principal); G93.41 Metabolic encephalopathy; N17.0 Acute kidney failure with tubular necrosis; D68.59 Other primary thrombophilia; Z68.41 Body mass index [BMI] 40.0-44.9, adult; Q62.0 Congenital hydronephrosis; N39.0 Urinary tract infection, site not specified; I11.0 Hypertensive heart disease with heart failure; Z86.16 Personal history of COVID-19; D64.9 Anemia, unspecified; E03.9 Hypothyroidism, unspecified; Z87.01 Personal history of pneumonia (recurrent); J44.9 Chronic obstructive pulmonary disease, unspecified; I50.9 Heart failure, unspecified; E88.09 Other disorders of plasma-protein metabolism, not elsewhere classified; I25.2 Old myocardial infarction; Z85.41 Personal history of malignant neoplasm of cervix uteri; E66.01 Morbid (severe) obesity due to excess calories; Z93.2 Ileostomy status; Z74.09 Other reduced mobility; K43.5 Parastomal hernia without obstruction or gangrene; Z20.822 Contact with and (suspected) exposure to COVID-19
CPT/HCPCS: 36415; 70450-TC; 71045-TC; 80048-TC; 80076-TC; 80202-TC; 81001; 82272-TC; 82728-TC; 82784; 83540-TC; 83605-TC; 83735-TC; 83880; 84100-TC; 84155; 84165; 84484-TC; 85025-TC; 85730-TC; 86304; 86334; 87040-TC; 87081-TC; 87086-TC; 87186-TC; 92526; 92611-TC; 93307-TC; 97110-TC; 97112-TC; 97530-TC; A6403; C9803; G0378; J0692; J1644; J2185; J2916; J3370; J7030; J7050; J7060; Q9967

== ENCOUNTER 2023-04-28 00:13 | Inpatient (IN) | payer MEDICARE, OTHER ==
[~2023-04-28] VITALS: Ht 165.1 cm; Wt 84.8 kg
[~2023-04-28 00:13] MED LIST: ACET-2605 PO; ACET-868 PO; AMIN30LI2 PO; AMMO225L14 TP; CALC-883 PO; CALC500T13 PO; CEFT1FRO2 IV; DULO60CA64 PO; FERR325T23 PO; HEPA50008 SQ; HYDR-4303 PO; LANS30CA56 PO; LEVO50TA8 PO; MAGN400O6 PO; PREG50CA PO; VANC1PLA9 IV
[2023-04-28 01:34] LABS: BASOPHILS # (AUTO) 0.1 K/uL (0.0-0.2); BASOPHILS % (AUTO) 0.7 % (0.0-2.0); EOSINOPHILS # (AUTO) 0.3 K/uL (0.0-0.7); EOSINOPHILS % (AUTO) 3.3 % (0.0-6.0); HEMATOCRIT 33 % (33-45); HEMOGLOBIN 10.5 g/dL (11.5-14.8); LYMPHOCYTES # (AUTO) 0.7 K/uL (0.8-4.8); LYMPHOCYTES % (AUTO) 7.6 % (20.0-44.0); MEAN CORPUSCULAR HEMOGLOBIN 30 PG (26.0-33.0); MEAN CORPUSCULAR HGB CONC 32 g/dl (31.0-36.0); MEAN CORPUSCULAR VOLUME 92 fL (82-100); MONOCYTES # (AUTO) 0.5 K/uL (0.1-1.30); MONOCYTES % (AUTO) 6.3 % (2.0-12.0); NEUTROPHILS % (AUTO) 82.1 % (43.0-81.0); PLATELET COUNT (AUTO) 275 K/uL (150-450); RED BLOOD CELL COUNT(AUTO) 3.55 MIL/uL (4.0-5.2); RED CELL DISTRIBUTION WIDTH 14.7 % (11.5-15.0); WHITE BLOOD COUNT (AUTO) 8.6 K/uL (4.3-11.0)
[2023-04-28 01:53] LABS: INR 1.11 (0.91-1.10); PARTIAL THROMBOPLASTIN TIME 36.6 SEC (24.3-34.3); PROTHROMBIN TIME 11.6 SECS (9.2-11.1)
[2023-04-28 02:02] LABS: CALCIUM, SERUM 8.8 mg/dL (8.5-10.1); CARBON DIOXIDE 21 mmol/L (21-32); CHLORIDE 102 mmol/L (98-107); CREATININE 1.7 mg/dL (0.6-1.3); GLUCOSE 98 mg/dL (74-106); POTASSIUM 3.7 mmol/L (3.5-5.1); SODIUM SERUM 136 mmol/L (136-145); UREA NITROGEN, BLOOD 27 mg/dL (7-18)
[2023-04-28 02:15] LABS: ALANINE AMINOTRANSFERASE 10 U/L (12-78); ALBUMIN 1.7 g/dL (3.4-5.0); ALKALINE PHOSPHATASE 80 U/L (46-116); ASPARTATE AMINOTRANSFERASE 12 U/L (15-37); BILIRUBIN,DIRECT 0.1 mg/dL (0.0-0.2); BILIRUBIN,TOTAL 0.3 mg/dL (0.2-1.0); LIPASE 44 U/L (73-393); TOTAL PROTEIN, SERUM 7.2 g/dL (6.4-8.2)
[2023-04-28] MEDS ORDERED: LEVOFLOXACIN 750 MG /D5W 150ML 150 ML IV ONE ×2 (03:30→03:37)
[2023-04-28] MEDS ORDERED: MAG HYDROX/AL HYDROX/SIMETH 30 ML UDC PO PRN (04:00)
[2023-04-28] MEDS ORDERED: Z GUARD REMEDY 4 OZ OINT TP PRN (04:00)
[2023-04-28] MEDS ORDERED: IV NS 0.9% 1,000 ML IV ONE (04:00)
[2023-04-28] MEDS ORDERED: ONDANSETRON HCL/PF 4 MG/2 ML VIAL IVP PRN (04:00)
[2023-04-28] MEDS ORDERED: ZOLPIDEM TARTRATE 5 MG TABLET PO PRN (04:00)
[2023-04-28] MEDS ORDERED: ACETAMINOPHEN 325 MG TABLET PO PRN (04:00)
[2023-04-28] MEDS ORDERED: MAGNESIUM HYDROXIDE 30 ML UDC PO PRN (04:00)
[2023-04-28 04:45] VITALS: BP 105/52; TEMP 97.9; O2SAT 93
[2023-04-28 05:00] VITALS: BP 105/52; TEMP 97.9; O2SAT 93
[2023-04-28 05:54] LABS: BASOPHILS # (AUTO) 0.1 K/uL (0.0-0.2); BASOPHILS % (AUTO) 0.6 % (0.0-2.0); EOSINOPHILS # (AUTO) 0.3 K/uL (0.0-0.7); EOSINOPHILS % (AUTO) 3.1 % (0.0-6.0); HEMATOCRIT 29 % (33-45); HEMOGLOBIN 9.8 g/dL (11.5-14.8); LYMPHOCYTES # (AUTO) 0.6 K/uL (0.8-4.8); LYMPHOCYTES % (AUTO) 7.6 % (20.0-44.0); MEAN CORPUSCULAR HEMOGLOBIN 31 PG (26.0-33.0); MEAN CORPUSCULAR HGB CONC 33 g/dl (31.0-36.0); MEAN CORPUSCULAR VOLUME 92 fL (82-100); MONOCYTES # (AUTO) 0.6 K/uL (0.1-1.30); MONOCYTES % (AUTO) 7.6 % (2.0-12.0); NEUTROPHILS # (AUTO) 6.7 K/uL (1.8-8.9); NEUTROPHILS % (AUTO) 81.1 % (43.0-81.0); PLATELET COUNT (AUTO) 257 K/uL (150-450); RED BLOOD CELL COUNT(AUTO) 3.19 MIL/uL (4.0-5.2); RED CELL DISTRIBUTION WIDTH 14.6 % (11.5-15.0); WHITE BLOOD COUNT (AUTO) 8.2 K/uL (4.3-11.0)
[2023-04-28 06:21] LABS: CALCIUM, SERUM 8.8 mg/dL (8.5-10.1); CARBON DIOXIDE 23 mmol/L (21-32); CHLORIDE 102 mmol/L (98-107); CREATININE 1.6 mg/dL (0.6-1.3); GLUCOSE 96 mg/dL (74-106); MAGNESIUM 1.4 mg/dL (1.8-2.4); PHOSPHORUS 4.9 mg/dL (2.5-4.9); POTASSIUM 3.9 mmol/L (3.5-5.1); SODIUM SERUM 136 mmol/L (136-145); UREA NITROGEN, BLOOD 30 mg/dL (7-18)
[2023-04-28 08:00] VITALS: BP 98/54; TEMP 97.6; O2SAT 97
[2023-04-28] MEDS ORDERED: MAGNESIUM OXIDE 400 MG TABLET PO ONE (09:30)
[2023-04-28] MEDS ORDERED: PETR113O TP (10:26)
[2023-04-28] MEDS ORDERED: CEFT1VIA14 IV (10:26)
[2023-04-28] MEDS ORDERED: VANC1VIA34 IV (10:26)
[2023-04-28] MEDS ORDERED: DULO20CA PO (10:26)
[2023-04-28] MEDS ORDERED: CLOT15CR5 TP (10:26)
[2023-04-28] MEDS ORDERED: LACT1CAP7 PO (10:26)
[2023-04-28 16:00] VITALS: BP 96/55; TEMP 97.6; O2SAT 100
[2023-04-28] MEDS ORDERED: CEFTRIAXONE 1 G VIAL IV SCH (16:00)
[2023-04-28] MEDS ORDERED: AMMONIUM LACTATE 227 GM BOTTLE TP PRN (16:00)
[2023-04-28] MEDS ORDERED: CALCIUM CARBONATE 500 MG TAB.CHEW PO PRN (16:00)
[2023-04-28] MEDS: FERROUS SULFATE (325 MG) 325 MG/TAB TABLET PO SCH (17:39)
[2023-04-28] MEDS: PREGABALIN 25 MG CAPSULE PO SCH (17:39)
[2023-04-28] MEDS: LACTOBACILLUS RHAMNOSUS GG 1 EACH CAP.SPRINK PO SCH (17:39)
[2023-04-28] MEDS: DULOXETINE HCL 20 MG CAPSULE.DR PO SCH (17:39)
[2023-04-28] MEDS: PANTOPRAZOLE 40 MG TABLET.DR PO SCH (17:40)
[2023-04-28] MEDS: CEFTRIAXONE 1 G in IV D5W 50 ML IV SCH (17:40)
[2023-04-28] MEDS: CALCIUM CARB 600MG /VIT D 1 EACH TABLET PO SCH (17:40)
[2023-04-28] MEDS: ENOXAPARIN SODIUM 30 MG/0.3 ML DISP.SYRIN SQ SCH (17:42)
[2023-04-28] MEDS: PROSOURCE / PROSTAT (PYXIS) 30 ML UDC GT SCH (17:58)
[2023-04-28 20:00] VITALS: BP 118/70; TEMP 98.7; O2SAT 98
[2023-04-29 07:00] VITALS: BP 115/62; TEMP 97.9; O2SAT 99
[2023-04-29 07:01] LABS: BASOPHILS % (AUTO) 0.6 % (0.0-2.0); EOSINOPHILS # (AUTO) 0.2 K/uL (0.0-0.7); EOSINOPHILS % (AUTO) 2.3 % (0.0-6.0); HEMATOCRIT 30 % (33-45); HEMOGLOBIN 9.9 g/dL (11.5-14.8); LYMPHOCYTES # (AUTO) 0.7 K/uL (0.8-4.8); LYMPHOCYTES % (AUTO) 9.4 % (20.0-44.0); MEAN CORPUSCULAR HEMOGLOBIN 30 PG (26.0-33.0); MEAN CORPUSCULAR HGB CONC 33 g/dl (31.0-36.0); MEAN CORPUSCULAR VOLUME 92 fL (82-100); MONOCYTES # (AUTO) 0.5 K/uL (0.1-1.30); MONOCYTES % (AUTO) 6.9 % (2.0-12.0); NEUTROPHILS % (AUTO) 80.8 % (43.0-81.0); PLATELET COUNT (AUTO) 278 K/uL (150-450); RED CELL DISTRIBUTION WIDTH 14.5 % (11.5-15.0); WHITE BLOOD COUNT (AUTO) 7.5 K/uL (4.3-11.0)
[2023-04-29 07:22] LABS: CALCIUM, SERUM 9.1 mg/dL (8.5-10.1); CREATININE 1.3 mg/dL (0.6-1.3); MAGNESIUM 1.3 mg/dL (1.8-2.4); PHOSPHORUS 4.4 mg/dL (2.5-4.9); POTASSIUM 3.8 mmol/L (3.5-5.1)
[2023-04-29] MEDS: PANTOPRAZOLE 40 MG TABLET.DR PO SCH (07:38)
[2023-04-29] MEDS: FERROUS SULFATE (325 MG) 325 MG/TAB TABLET PO SCH ×3 (07:38→17:26)
[2023-04-29] MEDS: LEVOTHYROXINE SODIUM 50 MCG TABLET PO SCH (07:38)
[2023-04-29] MEDS: DULOXETINE HCL 20 MG CAPSULE.DR PO SCH (08:33)
[2023-04-29] MEDS: LACTOBACILLUS RHAMNOSUS GG 1 EACH CAP.SPRINK PO SCH ×2 (08:34→16:09)
[2023-04-29] MEDS: PREGABALIN 25 MG CAPSULE PO SCH ×2 (08:34→16:09)
[2023-04-29] MEDS: CLOTRIMAZOLE/BETAMETASONE DIPROPIONATE 15 GM TUBE TP SCH (08:34)
[2023-04-29] MEDS: CALCIUM CARB 600MG /VIT D 1 EACH TABLET PO SCH (08:34)
[2023-04-29] MEDS: PROSOURCE / PROSTAT (PYXIS) 30 ML UDC GT SCH (08:36)
[2023-04-29] MEDS ORDERED: MAGNESIUM OXIDE 400 MG TABLET PO ONE (11:30)
[2023-04-29] MEDS: ENOXAPARIN SODIUM 30 MG/0.3 ML DISP.SYRIN SQ SCH (15:56)
[2023-04-29] MEDS: CEFTRIAXONE 1 G in IV D5W 50 ML IV SCH (15:58)
[2023-04-29 16:00] VITALS: BP 113/68; TEMP 98.1; O2SAT 99
[2023-04-29 20:00] VITALS: BP 105/59; TEMP 97.5; O2SAT 99
[2023-04-30 06:22] LABS: BASOPHILS % (AUTO) 0.6 % (0.0-2.0); EOSINOPHILS # (AUTO) 0.2 K/uL (0.0-0.7); EOSINOPHILS % (AUTO) 3.7 % (0.0-6.0); HEMATOCRIT 31 % (33-45); LYMPHOCYTES # (AUTO) 0.6 K/uL (0.8-4.8); LYMPHOCYTES % (AUTO) 9.9 % (20.0-44.0); MEAN CORPUSCULAR HEMOGLOBIN 30 PG (26.0-33.0); MEAN CORPUSCULAR HGB CONC 33 g/dl (31.0-36.0); MEAN CORPUSCULAR VOLUME 92 fL (82-100); MONOCYTES # (AUTO) 0.4 K/uL (0.1-1.30); MONOCYTES % (AUTO) 6.9 % (2.0-12.0); NEUTROPHILS % (AUTO) 78.9 % (43.0-81.0); PLATELET COUNT (AUTO) 276 K/uL (150-450); RED BLOOD CELL COUNT(AUTO) 3.36 MIL/uL (4.0-5.2); RED CELL DISTRIBUTION WIDTH 14.3 % (11.5-15.0); WHITE BLOOD COUNT (AUTO) 6.4 K/uL (4.3-11.0)
[2023-04-30 06:43] LABS: CREATININE 1.3 mg/dL (0.6-1.3); MAGNESIUM 1.4 mg/dL (1.8-2.4); PHOSPHORUS 3.7 mg/dL (2.5-4.9); POTASSIUM 3.6 mmol/L (3.5-5.1)
[2023-04-30] MEDS: LEVOTHYROXINE SODIUM 50 MCG TABLET PO SCH (07:30)
[2023-04-30] MEDS: PANTOPRAZOLE 40 MG TABLET.DR PO SCH (07:30)
[2023-04-30] MEDS: FERROUS SULFATE (325 MG) 325 MG/TAB TABLET PO SCH ×3 (07:49→18:00)
[2023-04-30 08:00] VITALS: BP 108/56; TEMP 97.6; O2SAT 93
[2023-04-30] MEDS ORDERED: VANCOMYCIN 1 GM VIAL IV SCH (09:00)
[2023-04-30] MEDS ORDERED: VANCOMYCIN 1 GM in IV D5W 250ml IV SCH (09:00)
[2023-04-30] MEDS: PROSOURCE / PROSTAT (PYXIS) 30 ML UDC GT SCH (09:00)
[2023-04-30] MEDS: DULOXETINE HCL 20 MG CAPSULE.DR PO SCH (09:00)
[2023-04-30] MEDS: PREGABALIN 25 MG CAPSULE PO SCH ×2 (09:00→16:29)
[2023-04-30] MEDS: LACTOBACILLUS RHAMNOSUS GG 1 EACH CAP.SPRINK PO SCH ×2 (09:00→16:28)
[2023-04-30] MEDS: CALCIUM CARB 600MG /VIT D 1 EACH TABLET PO SCH (09:00)
[2023-04-30] MEDS: CLOTRIMAZOLE/BETAMETASONE DIPROPIONATE 15 GM TUBE TP SCH (09:34)
[2023-04-30] MEDS ORDERED: MAGNESIUM OXIDE 400 MG TABLET PO SCH (12:00)
[2023-04-30] MEDS: Magnesium 1GM/D5W 100ML PREMIX 100 ML IV SCH ×4 (12:17→15:33)
[2023-04-30] MEDS: ENOXAPARIN SODIUM 30 MG/0.3 ML DISP.SYRIN SQ SCH (16:00)
[2023-04-30] MEDS: CEFTRIAXONE 1 G in IV D5W 50 ML IV SCH (16:20)
[2023-04-30] MEDS ORDERED: LIDOCAINE HCL/PF 1% 30 ML SDV ONE (16:34)
[2023-04-30] MEDS ORDERED: IOHEXOL-300 100 ML VIAL IV ONE (17:20)
== END 2023-04-30 19:45 | DRG 698 ==
LOC: ER 00:24 → MED 02:35
PROVIDERS: ADMIT Nurse Practitioner Acute Care; ATTEND Nurse Practitioner Acute Care
PROC: 0T9330Z Drainage of Right Kidney Pelvis with Drainage Device, Percutaneous Approach (ICD-10-PCS; principal; 2023-04-30)
DX: N99.522 Malfunction of incontinent external stoma of urinary tract (principal); N17.0 Acute kidney failure with tubular necrosis; I13.0 Hypertensive heart and chronic kidney disease with heart failure and stage 1 through stage 4 chronic kidney disease, or unspecified chronic kidney disease; Z68.41 Body mass index [BMI] 40.0-44.9, adult; D68.59 Other primary thrombophilia; N13.6 Pyonephrosis; M86.9 Osteomyelitis, unspecified; I50.9 Heart failure, unspecified; N18.9 Chronic kidney disease, unspecified; Y84.8 Other medical procedures as the cause of abnormal reaction of the patient, or of later complication, without mention of misadventure at the time of the procedure; Y92.129 Unspecified place in nursing home as the place of occurrence of the external cause; Z85.41 Personal history of malignant neoplasm of cervix uteri; D64.9 Anemia, unspecified; L30.9 Dermatitis, unspecified; Z88.0 Allergy status to penicillin; Z91.040 Latex allergy status; Z91.018 Allergy to other foods; Z79.01 Long term (current) use of anticoagulants; Z79.899 Other long term (current) drug therapy; Z79.890 Hormone replacement therapy; N32.9 Bladder disorder, unspecified; Z98.890 Other specified postprocedural states; Z86.16 Personal history of COVID-19; J44.9 Chronic obstructive pulmonary disease, unspecified; I25.2 Old myocardial infarction; G89.29 Other chronic pain; E83.42 Hypomagnesemia; E66.9 Obesity, unspecified; E03.9 Hypothyroidism, unspecified; Z74.09 Other reduced mobility; M89.9 Disorder of bone, unspecified; E11.69 Type 2 diabetes mellitus with other specified complication
CPT/HCPCS: 36415; 50435; 71045-TC; 80048-TC; 80076-TC; 80202-TC; 83605-TC; 83690-TC; 83735-TC; 84100-TC; 85025-TC; 85730-TC; 87040-TC; A4223; C1769; G0378; J0696; J1650; J1956; J3370; J3475; J3490; J7030; J7060; Q9967

== ENCOUNTER 2023-05-13 17:27 | Inpatient (IN) | payer MEDICARE, OTHER ==
[~2023-05-13] VITALS: Ht 157.5 cm; Wt 84.8 kg
[~2023-05-13 17:27] MED LIST changes: -CEFT1FRO2 IV; +CEFT1VIA14 IV; +CLOT15CR5 TP; +DULO20CA PO; -DULO60CA64 PO; +LACT1CAP7 PO; +PETR113O TP; -VANC1PLA9 IV; +VANC1VIA34 IV
[2023-05-13] MEDS ORDERED: VANCOMYCIN 1 GM in IV D5W 250 ML IV ONE (18:30)
[2023-05-13 18:44] LABS: BASOPHILS % (AUTO) 0.5 % (0.0-2.0); EOSINOPHILS # (AUTO) 0.3 K/uL (0.0-0.7); HEMATOCRIT 32 % (33-45); HEMOGLOBIN 10.4 g/dL (11.5-14.8); LYMPHOCYTES # (AUTO) 0.8 K/uL (0.8-4.8); LYMPHOCYTES % (AUTO) 8.6 % (20.0-44.0); MEAN CORPUSCULAR HEMOGLOBIN 29 PG (26.0-33.0); MEAN CORPUSCULAR HGB CONC 32 g/dl (31.0-36.0); MEAN CORPUSCULAR VOLUME 91 fL (82-100); MONOCYTES # (AUTO) 0.5 K/uL (0.1-1.30); MONOCYTES % (AUTO) 5.4 % (2.0-12.0); NEUTROPHILS # (AUTO) 7.7 K/uL (1.8-8.9); NEUTROPHILS % (AUTO) 82.5 % (43.0-81.0); PLATELET COUNT (AUTO) 374 K/uL (150-450); RED BLOOD CELL COUNT(AUTO) 3.54 MIL/uL (4.0-5.2); RED CELL DISTRIBUTION WIDTH 14.5 % (11.5-15.0); WHITE BLOOD COUNT (AUTO) 9.4 K/uL (4.3-11.0)
[2023-05-13 19:14] LABS: LACTIC ACID 0.8 mmol/L (0.4-2.0)
[2023-05-13 19:17] LABS: INR 1.14 (0.91-1.10); PARTIAL THROMBOPLASTIN TIME 34.8 SEC (24.3-34.3); PROTHROMBIN TIME 11.9 SECS (9.2-11.1)
[2023-05-13 19:21] LABS: ALANINE AMINOTRANSFERASE 12 U/L (12-78); ALKALINE PHOSPHATASE 87 U/L (46-116); ASPARTATE AMINOTRANSFERASE 14 U/L (15-37); BILIRUBIN,DIRECT 0.1 mg/dL (0.0-0.2); BILIRUBIN,TOTAL 0.3 mg/dL (0.2-1.0); CALCIUM, SERUM 8.5 mg/dL (8.5-10.1); CARBON DIOXIDE 24 mmol/L (21-32); CHLORIDE 102 mmol/L (98-107); CREATININE 1.2 mg/dL (0.6-1.3); GLUCOSE 95 mg/dL (74-106); POTASSIUM 4.2 mmol/L (3.5-5.1); SODIUM SERUM 137 mmol/L (136-145); TOTAL PROTEIN, SERUM 7.6 g/dL (6.4-8.2); UREA NITROGEN, BLOOD 20 mg/dL (7-18)
[2023-05-13 20:37] LABS: APPEARANCE,URINE CLOUDY (CLEAR); COLOR,URINE YELLOW (YELLOW)
[2023-05-13 20:38] LABS: BILIRUBIN,URINE NEGATIVE (NEGATIVE); BLOOD, URINE 3+ Ery/uL (NEGATIVE); PROTEIN,URINE 2+ mg/dl (NEGATIVE); UGLUCOSE NEGATIVE (NEGATIVE)
[2023-05-13 20:39] LABS: KETONES,URINE NEGATIVE (NEGATIVE); LEUKOCYTE ESTERASE ,URINE 3+ (NEGATIVE); NITRITE, URINE NEGATIVE (NEGATIVE); UROBILINOGEN,URINE 0.2 EU/dL (0.2)
[2023-05-13 20:55] LABS: ADD URINE CULTURE YES; BACTERIA,URINE 3+ /HPF (None Seen); RBC,URINE 51-80 /HPF (0-2); SQUAMOUS EPITHELIAL CELL,UR 0-2 /HPF (None Seen); URIC ACID CRYSTALS,URINE Few /HPF (None Seen); WBC,URINE 51-80 /HPF (0-3)
[2023-05-13 20:58] LABS: BAND % (MANUAL) 2 % (0.0-5.0); EOSINOPHILS % (MANUAL) 3 % (0-4); LYMPHOCYTES % (MANUAL) 6 % (16-48); MONOCYTES % (MANUAL) 5 % (0-11.0); NEUTROPHILS % (MANUAL) 84 (42-76)
[2023-05-13 20:59] LABS: ANISOCYTOSIS 1+; PLATELET ESTIMATE ADEQUATE
[2023-05-14] MEDS ORDERED: ONDANSETRON HCL/PF 4 MG/2 ML VIAL IVP PRN
[2023-05-14] MEDS ORDERED: ACETAMINOPHEN 325 MG TABLET PO PRN
[2023-05-14] MEDS ORDERED: HYDROCODONE/APAP 5/325MG TABLET PO PRN
[2023-05-14] MEDS: ENOXAPARIN SODIUM 40 MG/0.4 ML DISP.SYRIN SQ SCH ×2 (01:46→22:51)
[2023-05-14 02:19] VITALS: BP 94/69; TEMP 98.1; O2SAT 96
[2023-05-14 05:59] LABS: BASOPHILS # (AUTO) 0.1 K/uL (0.0-0.2); BASOPHILS % (AUTO) 0.6 % (0.0-2.0); EOSINOPHILS # (AUTO) 0.3 K/uL (0.0-0.7); EOSINOPHILS % (AUTO) 3.7 % (0.0-6.0); HEMATOCRIT 30 % (33-45); HEMOGLOBIN 9.9 g/dL (11.5-14.8); LYMPHOCYTES # (AUTO) 0.6 K/uL (0.8-4.8); MEAN CORPUSCULAR HEMOGLOBIN 30 PG (26.0-33.0); MEAN CORPUSCULAR HGB CONC 33 g/dl (31.0-36.0); MEAN CORPUSCULAR VOLUME 91 fL (82-100); MONOCYTES # (AUTO) 0.6 K/uL (0.1-1.30); MONOCYTES % (AUTO) 6.1 % (2.0-12.0); NEUTROPHILS # (AUTO) 7.7 K/uL (1.8-8.9); NEUTROPHILS % (AUTO) 82.6 % (43.0-81.0); PLATELET COUNT (AUTO) 367 K/uL (150-450); RED BLOOD CELL COUNT(AUTO) 3.33 MIL/uL (4.0-5.2); RED CELL DISTRIBUTION WIDTH 14.8 % (11.5-15.0); WHITE BLOOD COUNT (AUTO) 9.3 K/uL (4.3-11.0)
[2023-05-14 06:40] LABS: CALCIUM, SERUM 8.8 mg/dL (8.5-10.1); CARBON DIOXIDE 23 mmol/L (21-32); CHLORIDE 106 mmol/L (98-107); CREATININE 1.1 mg/dL (0.6-1.3); GLUCOSE 95 mg/dL (74-106); MAGNESIUM 1.5 mg/dL (1.8-2.4); PHOSPHORUS 4.4 mg/dL (2.5-4.9); POTASSIUM 3.8 mmol/L (3.5-5.1); SODIUM SERUM 141 mmol/L (136-145); UREA NITROGEN, BLOOD 20 mg/dL (7-18)
[2023-05-14 07:00] VITALS: BP 114/98; TEMP 98.1; O2SAT 100
[2023-05-14] MEDS: PANTOPRAZOLE 40 MG TABLET.DR PO SCH (07:33)
[2023-05-14] MEDS: ACIDOPHILUS/BULGARICUS 1 EACH TAB.CHEW PO SCH (09:04)
[2023-05-14] MEDS: CALCIUM CARB 600MG /VIT D 1 EACH TABLET PO SCH (09:04)
[2023-05-14] MEDS: CEFEPIME 1 GM in IV D5W 50 ML IV SCH ×2 (09:04→20:25)
[2023-05-14] MEDS: PREGABALIN 25 MG CAPSULE PO SCH ×2 (09:04→16:37)
[2023-05-14] MEDS: PROSOURCE / PROSTAT (PYXIS) 30 ML UDC PO SCH (09:04)
[2023-05-14] MEDS: Magnesium 1GM/D5W 100ML PREMIX 100 ML IV SCH ×2 (09:58→11:07)
[2023-05-14 16:00] VITALS: BP 118/71; TEMP 97.3; O2SAT 97
[2023-05-14 20:00] VITALS: BP_SYST 103; BP_SYST 107; BP_DIAS 61; TEMP 97.7; O2SAT 98
[2023-05-14] MEDS: HYDROCORTISONE 0.5% CREAM 28.35 GM TUBE TP SCH (21:30)
[2023-05-14] MEDS: HYDROGEL DRESSING 90 GM TUBE TP SCH (21:30)
[2023-05-15 08:00] VITALS: BP 103/55; TEMP 97.9; O2SAT 98
[2023-05-15] MEDS: CALCIUM CARB 600MG /VIT D 1 EACH TABLET PO SCH (08:15)
[2023-05-15] MEDS: PANTOPRAZOLE 40 MG TABLET.DR PO SCH (08:15)
[2023-05-15] MEDS: PREGABALIN 25 MG CAPSULE PO SCH ×2 (08:18→17:16)
[2023-05-15] MEDS: ACIDOPHILUS/BULGARICUS 1 EACH TAB.CHEW PO SCH (08:20)
[2023-05-15] MEDS: PROSOURCE / PROSTAT (PYXIS) 30 ML UDC PO SCH (08:22)
[2023-05-15] MEDS: CEFEPIME 1 GM in IV D5W 50 ML IV SCH ×2 (09:12→20:42)
[2023-05-15] MEDS: HYDROGEL DRESSING 90 GM TUBE TP SCH (09:13)
[2023-05-15] MEDS: HYDROCORTISONE 0.5% CREAM 28.35 GM TUBE TP SCH (09:13)
[2023-05-15] MEDS ORDERED: IOHEXOL-300 100 ML VIAL IV ONE (14:42)
[2023-05-15 16:12] VITALS: BP 99/55; TEMP 98.6; O2SAT 92
[2023-05-15] MEDS: ENSURE ENLIVE CHOC 237 ML CAN PO SCH (17:10)
[2023-05-15 20:26] VITALS: BP 108/54; TEMP 97.8; O2SAT 97
[2023-05-15] MEDS: ENOXAPARIN SODIUM 40 MG/0.4 ML DISP.SYRIN SQ SCH (22:00)
[2023-05-16 06:33] LABS: INR 1.1 (0.91-1.10); PARTIAL THROMBOPLASTIN TIME 35.4 SEC (24.3-34.3); PROTHROMBIN TIME 11.5 SECS (9.2-11.1)
[2023-05-16] MEDS: PANTOPRAZOLE 40 MG TABLET.DR PO SCH (07:30)
[2023-05-16] MEDS: ENSURE ENLIVE CHOC 237 ML CAN PO SCH ×2 (07:55→17:16)
[2023-05-16 08:00] VITALS: BP 104/51; TEMP 98.1; O2SAT 94
[2023-05-16] MEDS: CALCIUM CARB 600MG /VIT D 1 EACH TABLET PO SCH (09:00)
[2023-05-16] MEDS: PROSOURCE / PROSTAT (PYXIS) 30 ML UDC PO SCH (09:00)
[2023-05-16] MEDS: ACIDOPHILUS/BULGARICUS 1 EACH TAB.CHEW PO SCH (09:00)
[2023-05-16] MEDS: PREGABALIN 25 MG CAPSULE PO SCH ×2 (09:00→17:17)
[2023-05-16] MEDS: HYDROGEL DRESSING 90 GM TUBE TP SCH (09:29)
[2023-05-16] MEDS: HYDROCORTISONE 0.5% CREAM 28.35 GM TUBE TP SCH (09:29)
[2023-05-16] MEDS: CEFEPIME 1 GM in IV D5W 50 ML IV SCH ×2 (09:29→20:50)
[2023-05-16] MEDS ORDERED: FLUMAZENIL 0.5 MG VIAL IV PRN (14:00)
[2023-05-16] MEDS ORDERED: NALOXONE PREFILLED SYRINGE 2 MG/2 ML SYRINGE IV PRN (14:00)
[2023-05-16] MEDS ORDERED: FENTANYL PF 250MCG/5ML AMPUL IV PRN (14:00)
[2023-05-16] MEDS ORDERED: MIDAZOLAM HCL 2 MG/2ML VIAL IV PRN (14:00)
[2023-05-16] MEDS ORDERED: LIDOCAINE 1% INJ 50 ML MDV IJ ONE (14:09)
[2023-05-16 16:00] VITALS: BP 133/70; TEMP 98.2; O2SAT 93
[2023-05-16 20:00] VITALS: BP 108/71; TEMP 97.1; O2SAT 98
[2023-05-16] MEDS: ENOXAPARIN SODIUM 40 MG/0.4 ML DISP.SYRIN SQ SCH (21:29)
[2023-05-17 06:27] LABS: BASOPHILS % (AUTO) 0.6 % (0.0-2.0); EOSINOPHILS # (AUTO) 0.4 K/uL (0.0-0.7); EOSINOPHILS % (AUTO) 4.7 % (0.0-6.0); HEMATOCRIT 32 % (33-45); HEMOGLOBIN 10.5 g/dL (11.5-14.8); LYMPHOCYTES # (AUTO) 0.6 K/uL (0.8-4.8); LYMPHOCYTES % (AUTO) 8.1 % (20.0-44.0); MEAN CORPUSCULAR HEMOGLOBIN 30 PG (26.0-33.0); MEAN CORPUSCULAR HGB CONC 33 g/dl (31.0-36.0); MEAN CORPUSCULAR VOLUME 91 fL (82-100); MONOCYTES # (AUTO) 0.5 K/uL (0.1-1.30); MONOCYTES % (AUTO) 5.9 % (2.0-12.0); NEUTROPHILS # (AUTO) 6.3 K/uL (1.8-8.9); NEUTROPHILS % (AUTO) 80.7 % (43.0-81.0); PLATELET COUNT (AUTO) 355 K/uL (150-450); RED BLOOD CELL COUNT(AUTO) 3.52 MIL/uL (4.0-5.2); RED CELL DISTRIBUTION WIDTH 15.2 % (11.5-15.0); WHITE BLOOD COUNT (AUTO) 7.8 K/uL (4.3-11.0)
[2023-05-17 07:46] LABS: ALBUMIN 1.9 g/dL (3.4-5.0); BILIRUBIN,TOTAL 0.3 mg/dL (0.2-1.0); CREATININE 1.2 mg/dL (0.6-1.3); MAGNESIUM 1.5 mg/dL (1.8-2.4); PHOSPHORUS 3.7 mg/dL (2.5-4.9); TOTAL PROTEIN, SERUM 7.1 g/dL (6.4-8.2)
[2023-05-17] MEDS: PREGABALIN 25 MG CAPSULE PO SCH ×2 (08:15→16:47)
[2023-05-17] MEDS: ACIDOPHILUS/BULGARICUS 1 EACH TAB.CHEW PO SCH (08:15)
[2023-05-17] MEDS: ENSURE ENLIVE CHOC 237 ML CAN PO SCH ×2 (08:15→16:47)
[2023-05-17] MEDS: PANTOPRAZOLE 40 MG TABLET.DR PO SCH (08:15)
[2023-05-17] MEDS: CALCIUM CARB 600MG /VIT D 1 EACH TABLET PO SCH (08:15)
[2023-05-17] MEDS: CEFEPIME 1 GM in IV D5W 50 ML IV SCH (08:16)
[2023-05-17] MEDS: HYDROGEL DRESSING 90 GM TUBE TP SCH (08:16)
[2023-05-17] MEDS: PROSOURCE / PROSTAT (PYXIS) 30 ML UDC PO SCH (08:16)
[2023-05-17] MEDS: HYDROCORTISONE 0.5% CREAM 28.35 GM TUBE TP SCH (08:16)
[2023-05-17 08:17] VITALS: BP 95/42; TEMP 97.8; O2SAT 95
[2023-05-17] MEDS ORDERED: MAGNESIUM OXIDE 400 MG TABLET PO ONE (14:00)
[2023-05-17] MEDS ORDERED: Magnesium 1GM/D5W 100ML PREMIX 100 ML IV SCH (14:00)
[2023-05-17 16:12] VITALS: BP_SYST 104; BP_SYST 119; BP_DIAS 56; BP_DIAS 70; TEMP 97.5; O2SAT 96
[2023-05-17 20:00] VITALS: BP 116/56; TEMP 97.9; O2SAT 96
[2023-05-17 20:58] VITALS: BP 116/56; TEMP 97.9; O2SAT 96
[2023-05-17] MEDS ORDERED: LEVOFLOXACIN (250MG) 250 MG TABLET PO SCH (21:00)
[2023-05-17] MEDS ORDERED: FLUCONAZOLE IN NS 100 ML IV ONE (21:47)
[2023-05-17] MEDS ORDERED: MEROPENEM 1 G VIAL IV ONE (21:47)
[2023-05-17] MEDS: MEROPENEM 1 G in IV NS 0.9% 100 ML IV SCH (21:54)
[2023-05-17] MEDS: ENOXAPARIN SODIUM 40 MG/0.4 ML DISP.SYRIN SQ SCH (22:28)
[2023-05-17] MEDS: FLUCONAZOLE IN NS 100 MG in PREMIX 1 EA IV SCH ×2 (22:45)
[2023-05-18 06:54] LABS: BASOPHILS % (AUTO) 0.8 % (0.0-2.0); EOSINOPHILS # (AUTO) 0.4 K/uL (0.0-0.7); EOSINOPHILS % (AUTO) 6.5 % (0.0-6.0); HEMATOCRIT 32 % (33-45); HEMOGLOBIN 10.3 g/dL (11.5-14.8); LYMPHOCYTES # (AUTO) 0.8 K/uL (0.8-4.8); LYMPHOCYTES % (AUTO) 12.1 % (20.0-44.0); MEAN CORPUSCULAR HEMOGLOBIN 30 PG (26.0-33.0); MEAN CORPUSCULAR HGB CONC 32 g/dl (31.0-36.0); MEAN CORPUSCULAR VOLUME 92 fL (82-100); MONOCYTES # (AUTO) 0.5 K/uL (0.1-1.30); MONOCYTES % (AUTO) 7.5 % (2.0-12.0); NEUTROPHILS # (AUTO) 4.6 K/uL (1.8-8.9); NEUTROPHILS % (AUTO) 73.1 % (43.0-81.0); PLATELET COUNT (AUTO) 335 K/uL (150-450); RED BLOOD CELL COUNT(AUTO) 3.49 MIL/uL (4.0-5.2); RED CELL DISTRIBUTION WIDTH 15.2 % (11.5-15.0); WHITE BLOOD COUNT (AUTO) 6.3 K/uL (4.3-11.0)
[2023-05-18 07:22] LABS: CALCIUM, SERUM 8.8 mg/dL (8.5-10.1); CREATININE 1.1 mg/dL (0.6-1.3); MAGNESIUM 1.9 mg/dL (1.8-2.4); PHOSPHORUS 2.5 mg/dL (2.5-4.9); POTASSIUM 4.2 mmol/L (3.5-5.1)
[2023-05-18 07:30] VITALS: BP 107/55; TEMP 98; O2SAT 99
[2023-05-18] MEDS: ACIDOPHILUS/BULGARICUS 1 EACH TAB.CHEW PO SCH (08:32)
[2023-05-18] MEDS: PANTOPRAZOLE 40 MG TABLET.DR PO SCH (08:32)
[2023-05-18] MEDS: PREGABALIN 25 MG CAPSULE PO SCH ×2 (08:32→17:46)
[2023-05-18] MEDS: CALCIUM CARB 600MG /VIT D 1 EACH TABLET PO SCH (08:32)
[2023-05-18] MEDS: PROSOURCE / PROSTAT (PYXIS) 30 ML UDC PO SCH (08:33)
[2023-05-18] MEDS: HYDROCORTISONE 0.5% CREAM 28.35 GM TUBE TP SCH (08:33)
[2023-05-18] MEDS: HYDROGEL DRESSING 90 GM TUBE TP SCH (08:33)
[2023-05-18] MEDS: ENSURE ENLIVE CHOC 237 ML CAN PO SCH ×2 (08:33→17:46)
[2023-05-18] MEDS: MEROPENEM 1 G in IV NS 0.9% 100 ML IV SCH ×2 (09:40→21:35)
[2023-05-18 20:00] VITALS: BP 107/57; TEMP 98.2; O2SAT 96
[2023-05-18] MEDS: ENOXAPARIN SODIUM 40 MG/0.4 ML DISP.SYRIN SQ SCH (22:00)
[2023-05-18] MEDS: FLUCONAZOLE IN NS 100 MG in PREMIX 1 EA IV SCH ×2 (22:28)
[2023-05-19] MEDS: PANTOPRAZOLE 40 MG TABLET.DR PO SCH (07:28)
[2023-05-19 08:00] VITALS: BP 104/60; TEMP 97.7; O2SAT 96
[2023-05-19] MEDS: ENSURE ENLIVE CHOC 237 ML CAN PO SCH ×2 (08:01→17:24)
[2023-05-19] MEDS: MEROPENEM 1 G in IV NS 0.9% 100 ML IV SCH ×2 (08:08→21:09)
[2023-05-19] MEDS: ACIDOPHILUS/BULGARICUS 1 EACH TAB.CHEW PO SCH (08:38)
[2023-05-19] MEDS: CALCIUM CARB 600MG /VIT D 1 EACH TABLET PO SCH (08:38)
[2023-05-19] MEDS: PREGABALIN 25 MG CAPSULE PO SCH ×2 (08:38→16:02)
[2023-05-19] MEDS: HYDROCORTISONE 0.5% CREAM 28.35 GM TUBE TP SCH (08:40)
[2023-05-19] MEDS: PROSOURCE / PROSTAT (PYXIS) 30 ML UDC PO SCH (08:41)
[2023-05-19] MEDS: HYDROGEL DRESSING 90 GM TUBE TP SCH (08:41)
[2023-05-19 16:00] VITALS: BP 110/64; TEMP 98.3; O2SAT 94
[2023-05-19 19:00] VITALS: BP 96/53; TEMP 97.9; O2SAT 96
[2023-05-19] MEDS: ENOXAPARIN SODIUM 30 MG/0.3 ML DISP.SYRIN SQ SCH (21:13)
[2023-05-19] MEDS: FLUCONAZOLE IN NS 100 MG in PREMIX 1 EA IV SCH ×2 (22:11)
[2023-05-20 04:00] VITALS: BP_SYST 103; BP_SYST 151; BP_DIAS 57; BP_DIAS 71; TEMP 97.3; TEMP 97.9; O2SAT 98; O2SAT 99
[2023-05-20 06:08] LABS: ALANINE AMINOTRANSFERASE 16 U/L (12-78); ALBUMIN 1.9 g/dL (3.4-5.0); ALKALINE PHOSPHATASE 101 U/L (46-116); ASPARTATE AMINOTRANSFERASE 22 U/L (15-37); BILIRUBIN,TOTAL 0.2 mg/dL (0.2-1.0); CALCIUM, SERUM 8.9 mg/dL (8.5-10.1); CARBON DIOXIDE 24 mmol/L (21-32); CHLORIDE 111 mmol/L (98-107); CREATININE 1.1 mg/dL (0.6-1.3); GLUCOSE 88 mg/dL (74-106); PHOSPHORUS 2.9 mg/dL (2.5-4.9); POTASSIUM 5.3 mmol/L (3.5-5.1); SODIUM SERUM 144 mmol/L (136-145); TOTAL PROTEIN, SERUM 7.3 g/dL (6.4-8.2); UREA NITROGEN, BLOOD 42 mg/dL (7-18)
[2023-05-20 07:15] LABS: BASOPHILS # (AUTO) 0.1 K/uL (0.0-0.2); BASOPHILS % (AUTO) 0.9 % (0.0-2.0); EOSINOPHILS # (AUTO) 0.4 K/uL (0.0-0.7); EOSINOPHILS % (AUTO) 7.3 % (0.0-6.0); HEMATOCRIT 32 % (33-45); HEMOGLOBIN 10.2 g/dL (11.5-14.8); LYMPHOCYTES # (AUTO) 0.9 K/uL (0.8-4.8); LYMPHOCYTES % (AUTO) 15.6 % (20.0-44.0); MEAN CORPUSCULAR HEMOGLOBIN 30 PG (26.0-33.0); MEAN CORPUSCULAR HGB CONC 32 g/dl (31.0-36.0); MEAN CORPUSCULAR VOLUME 93 fL (82-100); MONOCYTES # (AUTO) 0.5 K/uL (0.1-1.30); MONOCYTES % (AUTO) 8.8 % (2.0-12.0); NEUTROPHILS # (AUTO) 4.1 K/uL (1.8-8.9); NEUTROPHILS % (AUTO) 67.4 % (43.0-81.0); PLATELET COUNT (AUTO) 318 K/uL (150-450); RED BLOOD CELL COUNT(AUTO) 3.44 MIL/uL (4.0-5.2); RED CELL DISTRIBUTION WIDTH 15.5 % (11.5-15.0); WHITE BLOOD COUNT (AUTO) 6.1 K/uL (4.3-11.0)
[2023-05-20] MEDS: PANTOPRAZOLE 40 MG TABLET.DR PO SCH (07:44)
[2023-05-20 08:00] VITALS: BP_SYST 103; BP_SYST 177; BP_DIAS 104; BP_DIAS 62; TEMP 98.3; TEMP 98.5; O2SAT 94; O2SAT 96
[2023-05-20] MEDS: PROSOURCE / PROSTAT (PYXIS) 30 ML UDC PO SCH (09:17)
[2023-05-20] MEDS: HYDROCORTISONE 0.5% CREAM 28.35 GM TUBE TP SCH (09:18)
[2023-05-20] MEDS: HYDROGEL DRESSING 90 GM TUBE TP SCH (09:18)
[2023-05-20] MEDS: CALCIUM CARB 600MG /VIT D 1 EACH TABLET PO SCH (09:19)
[2023-05-20] MEDS: PREGABALIN 25 MG CAPSULE PO SCH ×2 (09:19→16:08)
[2023-05-20] MEDS: ENSURE ENLIVE 237 ML LIQUID (VANILLA) PO SCH ×2 (09:19→17:28)
[2023-05-20] MEDS: ACIDOPHILUS/BULGARICUS 1 EACH TAB.CHEW PO SCH (09:19)
[2023-05-20] MEDS: MEROPENEM 1 G in IV NS 0.9% 100 ML IV SCH ×2 (09:20→20:31)
[2023-05-20] MEDS ORDERED: SODIUM POLYSTYRENE SULFONATE 15 G/60 ML BOTTLE PO ONE (11:00)
[2023-05-20 12:00] VITALS: BP 100/70; TEMP 98; O2SAT 98
[2023-05-20 20:00] VITALS: BP 107/68; TEMP 98.2; O2SAT 97
[2023-05-20] MEDS: ENOXAPARIN SODIUM 30 MG/0.3 ML DISP.SYRIN SQ SCH (21:08)
[2023-05-20] MEDS: FLUCONAZOLE IN NS 100 MG in PREMIX 1 EA IV SCH ×2 (21:09)
[2023-05-21 06:18] LABS: BASOPHILS # (AUTO) 0.1 K/uL (0.0-0.2); BASOPHILS % (AUTO) 0.9 % (0.0-2.0); EOSINOPHILS # (AUTO) 0.4 K/uL (0.0-0.7); EOSINOPHILS % (AUTO) 7.3 % (0.0-6.0); HEMATOCRIT 31 % (33-45); HEMOGLOBIN 10.1 g/dL (11.5-14.8); LYMPHOCYTES # (AUTO) 0.8 K/uL (0.8-4.8); LYMPHOCYTES % (AUTO) 14.1 % (20.0-44.0); MEAN CORPUSCULAR HEMOGLOBIN 30 PG (26.0-33.0); MEAN CORPUSCULAR HGB CONC 32 g/dl (31.0-36.0); MEAN CORPUSCULAR VOLUME 92 fL (82-100); MONOCYTES # (AUTO) 0.5 K/uL (0.1-1.30); NEUTROPHILS # (AUTO) 3.9 K/uL (1.8-8.9); NEUTROPHILS % (AUTO) 69.7 % (43.0-81.0); PLATELET COUNT (AUTO) 318 K/uL (150-450); RED BLOOD CELL COUNT(AUTO) 3.39 MIL/uL (4.0-5.2); RED CELL DISTRIBUTION WIDTH 15.7 % (11.5-15.0); WHITE BLOOD COUNT (AUTO) 5.6 K/uL (4.3-11.0)
[2023-05-21 06:38] LABS: ALANINE AMINOTRANSFERASE 18 U/L (12-78); ALBUMIN 1.9 g/dL (3.4-5.0); ALKALINE PHOSPHATASE 91 U/L (46-116); ASPARTATE AMINOTRANSFERASE 20 U/L (15-37); BILIRUBIN,TOTAL 0.2 mg/dL (0.2-1.0); CALCIUM, SERUM 8.8 mg/dL (8.5-10.1); CARBON DIOXIDE 29 mmol/L (21-32); CHLORIDE 111 mmol/L (98-107); CREATININE 0.9 mg/dL (0.6-1.3); GLUCOSE 92 mg/dL (74-106); MAGNESIUM 1.8 mg/dL (1.8-2.4); PHOSPHORUS 3.9 mg/dL (2.5-4.9); POTASSIUM 4.3 mmol/L (3.5-5.1); SODIUM SERUM 148 mmol/L (136-145); UREA NITROGEN, BLOOD 40 mg/dL (7-18)
[2023-05-21 07:00] VITALS: BP 118/64; TEMP 97.5; O2SAT 94
[2023-05-21] MEDS: PANTOPRAZOLE 40 MG TABLET.DR PO SCH (08:27)
[2023-05-21] MEDS: ACIDOPHILUS/BULGARICUS 1 EACH TAB.CHEW PO SCH (08:28)
[2023-05-21] MEDS: PREGABALIN 25 MG CAPSULE PO SCH ×2 (08:29→18:23)
[2023-05-21] MEDS: CALCIUM CARB 600MG /VIT D 1 EACH TABLET PO SCH (08:29)
[2023-05-21] MEDS: ENSURE ENLIVE 237 ML LIQUID (VANILLA) PO SCH ×2 (08:30→18:24)
[2023-05-21] MEDS: PROSOURCE / PROSTAT (PYXIS) 30 ML UDC PO SCH (08:41)
[2023-05-21] MEDS: HYDROCORTISONE 0.5% CREAM 28.35 GM TUBE TP SCH (08:46)
[2023-05-21] MEDS: HYDROGEL DRESSING 90 GM TUBE TP SCH (08:47)
[2023-05-21] MEDS: MEROPENEM 1 G in IV NS 0.9% 100 ML IV SCH ×2 (09:44→20:34)
[2023-05-21 16:00] VITALS: BP 110/64; TEMP 98.3; O2SAT 98
[2023-05-21 20:00] VITALS: BP 141/92; TEMP 98.1; O2SAT 95
[2023-05-21] MEDS: ENOXAPARIN SODIUM 30 MG/0.3 ML DISP.SYRIN SQ SCH (21:18)
[2023-05-21] MEDS: FLUCONAZOLE (100 MG) 100 MG TABLET PO SCH (21:31)
[2023-05-22 06:09] LABS: BASOPHILS # (AUTO) 0.1 K/uL (0.0-0.2); BASOPHILS % (AUTO) 0.9 % (0.0-2.0); EOSINOPHILS # (AUTO) 0.3 K/uL (0.0-0.7); EOSINOPHILS % (AUTO) 4.6 % (0.0-6.0); HEMATOCRIT 33 % (33-45); HEMOGLOBIN 10.7 g/dL (11.5-14.8); LYMPHOCYTES # (AUTO) 0.8 K/uL (0.8-4.8); LYMPHOCYTES % (AUTO) 12.2 % (20.0-44.0); MEAN CORPUSCULAR HEMOGLOBIN 30 PG (26.0-33.0); MEAN CORPUSCULAR HGB CONC 32 g/dl (31.0-36.0); MEAN CORPUSCULAR VOLUME 93 fL (82-100); MONOCYTES # (AUTO) 0.5 K/uL (0.1-1.30); MONOCYTES % (AUTO) 7.6 % (2.0-12.0); NEUTROPHILS # (AUTO) 5.1 K/uL (1.8-8.9); NEUTROPHILS % (AUTO) 74.7 % (43.0-81.0); PLATELET COUNT (AUTO) 329 K/uL (150-450); RED CELL DISTRIBUTION WIDTH 15.9 % (11.5-15.0); WHITE BLOOD COUNT (AUTO) 6.8 K/uL (4.3-11.0)
[2023-05-22 06:30] LABS: ALANINE AMINOTRANSFERASE 17 U/L (12-78); ALBUMIN 2.1 g/dL (3.4-5.0); ALKALINE PHOSPHATASE 97 U/L (46-116); ASPARTATE AMINOTRANSFERASE 18 U/L (15-37); BILIRUBIN,TOTAL 0.2 mg/dL (0.2-1.0); CARBON DIOXIDE 33 mmol/L (21-32); CHLORIDE 110 mmol/L (98-107); CREATININE 1.1 mg/dL (0.6-1.3); GLUCOSE 79 mg/dL (74-106); MAGNESIUM 1.8 mg/dL (1.8-2.4); PHOSPHORUS 3.9 mg/dL (2.5-4.9); POTASSIUM 4.7 mmol/L (3.5-5.1); SODIUM SERUM 148 mmol/L (136-145); TOTAL PROTEIN, SERUM 7.5 g/dL (6.4-8.2); UREA NITROGEN, BLOOD 45 mg/dL (7-18)
[2023-05-22 06:47] LABS: INR 1.1 (0.91-1.10); PARTIAL THROMBOPLASTIN TIME 33.5 SEC (24.3-34.3); PROTHROMBIN TIME 11.5 SECS (9.2-11.1)
[2023-05-22] MEDS: PANTOPRAZOLE 40 MG TABLET.DR PO SCH (07:30)
[2023-05-22 08:00] VITALS: BP 111/64; TEMP 97.5; O2SAT 97
[2023-05-22] MEDS: ENSURE ENLIVE 237 ML LIQUID (VANILLA) PO SCH ×2 (08:00→17:25)
[2023-05-22] MEDS: PREGABALIN 25 MG CAPSULE PO SCH ×2 (09:00→16:17)
[2023-05-22] MEDS: ACIDOPHILUS/BULGARICUS 1 EACH TAB.CHEW PO SCH (09:00)
[2023-05-22] MEDS: CALCIUM CARB 600MG /VIT D 1 EACH TABLET PO SCH (09:00)
[2023-05-22] MEDS: PROSOURCE / PROSTAT (PYXIS) 30 ML UDC PO SCH (09:00)
[2023-05-22] MEDS: HYDROGEL DRESSING 90 GM TUBE TP SCH (09:49)
[2023-05-22] MEDS: HYDROCORTISONE 0.5% CREAM 28.35 GM TUBE TP SCH (09:49)
[2023-05-22] MEDS: MEROPENEM 1 G in IV NS 0.9% 100 ML IV SCH ×2 (09:53→21:08)
[2023-05-22] MEDS ORDERED: FENTANYL PF 250MCG/5ML AMPUL IV PRN (14:00)
[2023-05-22] MEDS ORDERED: MIDAZOLAM HCL 2 MG/2ML VIAL IV PRN (14:00)
[2023-05-22] MEDS ORDERED: FLUMAZENIL 0.5 MG VIAL IV PRN (14:00)
[2023-05-22] MEDS ORDERED: NALOXONE PREFILLED SYRINGE 2 MG/2 ML SYRINGE IV PRN (14:00)
[2023-05-22 16:00] VITALS: BP 112/68; TEMP 97.6; O2SAT 94
[2023-05-22] MEDS: ENOXAPARIN SODIUM 30 MG/0.3 ML DISP.SYRIN SQ SCH (21:06)
[2023-05-22 21:22] VITALS: BP 106/53; TEMP 99; O2SAT 76
[2023-05-22] MEDS: FLUCONAZOLE (100 MG) 100 MG TABLET PO SCH (22:09)
[2023-05-23 08:00] VITALS: BP 112/53; TEMP 97.5; TEMP 97.8; O2SAT 100
[2023-05-23] MEDS: PREGABALIN 25 MG CAPSULE PO SCH (09:12)
[2023-05-23] MEDS: CALCIUM CARB 600MG /VIT D 1 EACH TABLET PO SCH (09:12)
[2023-05-23] MEDS: PROSOURCE / PROSTAT (PYXIS) 30 ML UDC PO SCH (09:12)
[2023-05-23] MEDS: ACIDOPHILUS/BULGARICUS 1 EACH TAB.CHEW PO SCH (09:13)
[2023-05-23] MEDS: PANTOPRAZOLE 40 MG TABLET.DR PO SCH (09:13)
[2023-05-23] MEDS: HYDROGEL DRESSING 90 GM TUBE TP SCH (09:14)
[2023-05-23] MEDS: HYDROCORTISONE 0.5% CREAM 28.35 GM TUBE TP SCH (09:14)
[2023-05-23] MEDS: ENSURE ENLIVE 237 ML LIQUID (VANILLA) PO SCH (09:15)
[2023-05-23] MEDS: MEROPENEM 1 G in IV NS 0.9% 100 ML IV SCH (09:21)
== END 2023-05-23 11:50 | DRG 698 ==
LOC: ER 17:31 → TELE 22:46 → MED 05-14 00:11
PROVIDERS: ADMIT Nurse Practitioner Acute Care; ATTEND Nurse Practitioner Acute Care
PROC: BT12YZZ Fluoroscopy of Left Kidney using Other Contrast (ICD-10-PCS; principal; 2023-05-15)
PROC: 0T25X0Z Change Drainage Device in Kidney, External Approach (ICD-10-PCS; 2023-05-21)
PROC: 0T25X0Z Change Drainage Device in Kidney, External Approach (ICD-10-PCS; 2023-05-22)
DX: N99.522 Malfunction of incontinent external stoma of urinary tract (principal); L89.153 Pressure ulcer of sacral region, stage 3; B37.49 Other urogenital candidiasis; I13.0 Hypertensive heart and chronic kidney disease with heart failure and stage 1 through stage 4 chronic kidney disease, or unspecified chronic kidney disease; N13.6 Pyonephrosis; N17.9 Acute kidney failure, unspecified; E46 Unspecified protein-calorie malnutrition; D68.69 Other thrombophilia; M86.8X8 Other osteomyelitis, other site; G93.49 Other encephalopathy; Y73.8 Miscellaneous gastroenterology and urology devices associated with adverse incidents, not elsewhere classified; E11.22 Type 2 diabetes mellitus with diabetic chronic kidney disease; I50.9 Heart failure, unspecified; N18.9 Chronic kidney disease, unspecified; Y73.2 Prosthetic and other implants, materials and accessory gastroenterology and urology devices associated with adverse incidents; D64.9 Anemia, unspecified; E03.9 Hypothyroidism, unspecified; E83.42 Hypomagnesemia; E88.09 Other disorders of plasma-protein metabolism, not elsewhere classified; Z86.16 Personal history of COVID-19; Z85.41 Personal history of malignant neoplasm of cervix uteri; Z88.0 Allergy status to penicillin; B96.1 Klebsiella pneumoniae [K. pneumoniae] as the cause of diseases classified elsewhere; Z74.09 Other reduced mobility; E66.9 Obesity, unspecified; Z68.34 Body mass index [BMI] 34.0-34.9, adult; Y83.8 Other surgical procedures as the cause of abnormal reaction of the patient, or of later complication, without mention of misadventure at the time of the procedure; R21 Rash and other nonspecific skin eruption; E11.69 Type 2 diabetes mellitus with other specified complication; F03.90 Unspecified dementia, unspecified severity, without behavioral disturbance, psychotic disturbance, mood disturbance, and anxiety; I25.2 Old myocardial infarction; Z93.3 Colostomy status; T83.092A Other mechanical complication of nephrostomy catheter, initial encounter; Y92.129 Unspecified place in nursing home as the place of occurrence of the external cause; N32.89 Other specified disorders of bladder; J44.9 Chronic obstructive pulmonary disease, unspecified
CPT/HCPCS: 36415; 71045-TC; 74425-TC; 80048-TC; 80053-TC; 80076-TC; 81001; 83605-TC; 83735-TC; 84100-TC; 84484-TC; 85025-TC; 85610-TC; 85730-TC; 87040-TC; 87081-TC; 87086-TC; A4216; A4217; A4223; A6248; A6253; A6403; G0378; J0692; J1450; J1650; J2185; J3010; J3370; J3475; J3490; J7030; J7040; J7050; J7060; Q9967

== ENCOUNTER 2023-07-07 01:24 | Inpatient (IN) | payer MEDICARE, OTHER ==
[~2023-07-07] VITALS: Ht 157.5 cm; Wt 97.5 kg
[~2023-07-07 01:24] MED LIST changes: -CEFT1VIA14 IV
[2023-07-07] MEDS ORDERED: ACETAMINOPHEN 650 MG/SUPP.RECT RC ONE ×2 (02:15→02:30)
[2023-07-07] MEDS ORDERED: DILTIAZEM HCL 25 MG IV ONE (02:16)
[2023-07-07] MEDS ORDERED: DILTIAZEM HCL 50 MG IV IV ONE (02:30)
[2023-07-07 02:35] LABS: BASOPHILS % (AUTO) 0.1 % (0.0-2.0); EOSINOPHILS % (AUTO) 0.1 % (0.0-6.0); HEMATOCRIT 38 % (33-45); HEMOGLOBIN 12.5 g/dL (11.5-14.8); LYMPHOCYTES # (AUTO) 0.9 K/uL (0.8-4.8); LYMPHOCYTES % (AUTO) 3.6 % (20.0-44.0); MEAN CORPUSCULAR HEMOGLOBIN 29 PG (26.0-33.0); MEAN CORPUSCULAR HGB CONC 32 g/dl (31.0-36.0); MEAN CORPUSCULAR VOLUME 88 fL (82-100); MONOCYTES # (AUTO) 1.4 K/uL (0.1-1.30); MONOCYTES % (AUTO) 5.6 % (2.0-12.0); NEUTROPHILS # (AUTO) 21.9 K/uL (1.8-8.9); NEUTROPHILS % (AUTO) 90.6 % (43.0-81.0); PLATELET COUNT (AUTO) 559 K/uL (150-450); RED BLOOD CELL COUNT(AUTO) 4.36 MIL/uL (4.0-5.2); RED CELL DISTRIBUTION WIDTH 15.7 % (11.5-15.0); WHITE BLOOD COUNT (AUTO) 24.2 K/uL (4.3-11.0)
[2023-07-07 02:39] LABS: INR 1.15 (0.91-1.10); PARTIAL THROMBOPLASTIN TIME 37.5 SEC (24.3-34.3); PROTHROMBIN TIME 12.1 SECS (9.2-11.1)
[2023-07-07 02:49] LABS: CALCIUM, SERUM 10.7 mg/dL (8.5-10.1); CARBON DIOXIDE 14 mmol/L (21-32); CHLORIDE 94 mmol/L (98-107); CREATININE 4.3 mg/dL (0.6-1.3); GLUCOSE 163 mg/dL (74-106); POTASSIUM 5.6 mmol/L (3.5-5.1); SODIUM SERUM 129 mmol/L (136-145)
[2023-07-07 02:55] LABS: ALANINE AMINOTRANSFERASE 25 U/L (12-78); ALBUMIN 1.9 g/dL (3.4-5.0); ALKALINE PHOSPHATASE 326 U/L (46-116); ASPARTATE AMINOTRANSFERASE 21 U/L (15-37); BILIRUBIN,DIRECT 0.2 mg/dL (0.0-0.2); BILIRUBIN,TOTAL 0.4 mg/dL (0.2-1.0); TOTAL PROTEIN, SERUM 9.3 g/dL (6.4-8.2)
[2023-07-07 03:00] LABS: LACTIC ACID 1.7 mmol/L (0.4-2.0)
[2023-07-07 03:05] LABS: LYMPHOCYTES % (MANUAL) 2 % (16-48); MONOCYTES % (MANUAL) 4 % (0-11.0); NEUTROPHILS % (MANUAL) 94 (42-76); PLATELET ESTIMATE INCREASED
[2023-07-07] MEDS ORDERED: IV NS 0.9% 500 ML BAG IV ONE (04:00)
[2023-07-07 04:07] LABS: UREA NITROGEN, BLOOD 134 mg/dL (7-18)
[2023-07-07] MEDS ORDERED: PANT40TA2 PO (09:20)
[2023-07-07] MEDS ORDERED: HONE15GE TP (09:20)
[2023-07-07] MEDS ORDERED: MULT-447 PO (09:20)
[2023-07-07] MEDS ORDERED: ZINC56.713 TP (09:20)
[2023-07-07] MEDS ORDERED: ARGI1POW13 PO (09:20)
[2023-07-07] MEDS ORDERED: ASCO-352 PO (09:20)
[2023-07-07] MEDS ORDERED: MAGNESIUM HYDROXIDE 30 ML UDC PO PRN (10:30)
[2023-07-07] MEDS ORDERED: ACETAMINOPHEN 325 MG TABLET PO PRN (10:30)
[2023-07-07] MEDS ORDERED: MAG HYDROX/AL HYDROX/SIMETH 30 ML UDC PO PRN (10:30)
[2023-07-07] MEDS ORDERED: ZOLPIDEM TARTRATE 5 MG TABLET PO PRN (10:30)
[2023-07-07] MEDS ORDERED: Z GUARD REMEDY 4 OZ OINT TP PRN (10:30)
[2023-07-07] MEDS ORDERED: ONDANSETRON HCL/PF 4 MG/2 ML VIAL IVP PRN (10:30)
[2023-07-07 12:00] VITALS: BP 100/64; TEMP 98.2; O2SAT 100
[2023-07-07] MEDS: IV NS 0.9% 1,000 ML IV PRN (13:10)
[2023-07-07] MEDS: VANCOMYCIN 1 GM in IV D5W 250 ML IV SCH (13:12)
[2023-07-07] MEDS: CEFEPIME 1 GM in IV D5W 50 ML IV SCH (14:21)
[2023-07-07 16:00] VITALS: BP 103/41; TEMP 98.1; O2SAT 92
[2023-07-07] MEDS ORDERED: CALCIUM CARBONATE 500 MG TAB.CHEW PO PRN (18:00)
[2023-07-07] MEDS: PROSOURCE / PROSTAT (PYXIS) 30 ML UDC PO SCH (18:17)
[2023-07-07] MEDS: PREGABALIN 25 MG CAPSULE PO SCH (18:17)
[2023-07-07] MEDS: ARGININE/GLUTAMINE/CALCIUM BMB 1 EACH POWD.PACK PO SCH (18:17)
[2023-07-07 20:00] VITALS: BP_SYST 103; BP_SYST 98; BP_DIAS 53; BP_DIAS 55; TEMP 93.6; TEMP 98.1; O2SAT 90; O2SAT 96
[2023-07-07] MEDS: HEPARIN SODIUM, PORCINE 5000 UNITS/1 ML VIAL SQ SCH (20:26)
[2023-07-08] VITALS: BP 94/55; TEMP 97.5; TEMP 97.8; O2SAT 93
[2023-07-08] MEDS: IV NS 0.9% 1,000 ML IV PRN (00:35)
[2023-07-08 04:00] VITALS: BP 99/47; TEMP 97.6; O2SAT 98
[2023-07-08 07:44] LABS: BASOPHILS % (AUTO) 0.2 % (0.0-2.0); EOSINOPHILS % (AUTO) 0.4 % (0.0-6.0); HEMATOCRIT 35 % (33-45); LYMPHOCYTES # (AUTO) 0.6 K/uL (0.8-4.8); LYMPHOCYTES % (AUTO) 4.5 % (20.0-44.0); MEAN CORPUSCULAR HEMOGLOBIN 29 PG (26.0-33.0); MEAN CORPUSCULAR HGB CONC 32 g/dl (31.0-36.0); MEAN CORPUSCULAR VOLUME 91 fL (82-100); MONOCYTES # (AUTO) 0.6 K/uL (0.1-1.30); MONOCYTES % (AUTO) 4.6 % (2.0-12.0); NEUTROPHILS # (AUTO) 11.5 K/uL (1.8-8.9); NEUTROPHILS % (AUTO) 90.3 % (43.0-81.0); PLATELET COUNT (AUTO) 389 K/uL (150-450); RED BLOOD CELL COUNT(AUTO) 3.84 MIL/uL (4.0-5.2); RED CELL DISTRIBUTION WIDTH 15.6 % (11.5-15.0); WHITE BLOOD COUNT (AUTO) 12.7 K/uL (4.3-11.0)
[2023-07-08 08:03] LABS: CALCIUM, SERUM 9.3 mg/dL (8.5-10.1); CARBON DIOXIDE 11 mmol/L (21-32); CHLORIDE 101 mmol/L (98-107); CREATININE 3.8 mg/dL (0.6-1.3); GLUCOSE 77 mg/dL (74-106); MAGNESIUM 2.5 mg/dL (1.8-2.4); POTASSIUM 5.4 mmol/L (3.5-5.1); SODIUM SERUM 132 mmol/L (136-145)
[2023-07-08 08:21] LABS: UREA NITROGEN, BLOOD 129 mg/dL (7-18)
[2023-07-08 08:22] LABS: PHOSPHORUS 8.3 mg/dL (2.5-4.9)
[2023-07-08] MEDS: LACTOBACILLUS RHAMNOSUS GG 1 EACH CAP.SPRINK PO SCH (08:45)
[2023-07-08] MEDS: CALCIUM CARB 600MG /VIT D 1 EACH TABLET PO SCH (08:45)
[2023-07-08] MEDS: MULTIVIT W/MINERALS 1 TAB TABLET PO SCH (08:45)
[2023-07-08] MEDS: PREGABALIN 25 MG CAPSULE PO SCH ×2 (08:45→17:00)
[2023-07-08] MEDS: LEVOTHYROXINE SODIUM 50 MCG TABLET PO SCH (08:45)
[2023-07-08] MEDS: FERROUS SULFATE (325 MG) 325 MG/TAB TABLET PO SCH ×3 (08:45→17:00)
[2023-07-08] MEDS: ASCORBIC ACID 500 MG TABLET PO SCH (08:45)
[2023-07-08] MEDS: PANTOPRAZOLE 40 MG TABLET.DR PO SCH (08:45)
[2023-07-08] MEDS: DULOXETINE HCL 20 MG CAPSULE.DR PO SCH (08:45)
[2023-07-08] MEDS: PROSOURCE / PROSTAT (PYXIS) 30 ML UDC PO SCH ×2 (08:50→17:00)
[2023-07-08] MEDS: ARGININE/GLUTAMINE/CALCIUM BMB 1 EACH POWD.PACK PO SCH ×2 (08:50→17:00)
[2023-07-08] MEDS: HEPARIN SODIUM, PORCINE 5000 UNITS/1 ML VIAL SQ SCH ×2 (08:52→21:00)
[2023-07-08] MEDS: CEFEPIME 1 GM in IV D5W 50 ML IV SCH (12:56)
[2023-07-08] MEDS: CALCIUM ACETATE 667 MG CAP/TAB PO SCH (17:51)
[2023-07-08 20:34] VITALS: BP 98/57; TEMP 98.6; O2SAT 98
[2023-07-09] VITALS (7 sets, daily range): BP systolic 85–104; BP diastolic 46–68; TEMP 97.5–98.4; O2SAT 94–100
[2023-07-09] MEDS: IV D5/0.45 NACL 1,000 ML IV PRN ×2 (01:53→10:58)
[2023-07-09 07:14] LABS: BASOPHILS % (AUTO) 0.4 % (0.0-2.0); EOSINOPHILS # (AUTO) 0.1 K/uL (0.0-0.7); HEMATOCRIT 32 % (33-45); LYMPHOCYTES # (AUTO) 0.6 K/uL (0.8-4.8); LYMPHOCYTES % (AUTO) 6.4 % (20.0-44.0); MEAN CORPUSCULAR HEMOGLOBIN 29 PG (26.0-33.0); MEAN CORPUSCULAR HGB CONC 32 g/dl (31.0-36.0); MEAN CORPUSCULAR VOLUME 91 fL (82-100); MONOCYTES # (AUTO) 0.8 K/uL (0.1-1.30); MONOCYTES % (AUTO) 8.1 % (2.0-12.0); NEUTROPHILS % (AUTO) 84.1 % (43.0-81.0); PLATELET COUNT (AUTO) 340 K/uL (150-450); RED BLOOD CELL COUNT(AUTO) 3.47 MIL/uL (4.0-5.2); RED CELL DISTRIBUTION WIDTH 15.6 % (11.5-15.0); WHITE BLOOD COUNT (AUTO) 9.6 K/uL (4.3-11.0)
[2023-07-09 07:29] LABS: CALCIUM, SERUM 9.4 mg/dL (8.5-10.1); CARBON DIOXIDE 12 mmol/L (21-32); CHLORIDE 105 mmol/L (98-107); GLUCOSE 117 mg/dL (74-106); POTASSIUM 4.3 mmol/L (3.5-5.1); SODIUM SERUM 134 mmol/L (136-145)
[2023-07-09 07:38] LABS: UREA NITROGEN, BLOOD 139 mg/dL (7-18)
[2023-07-09] MEDS: HEPARIN SODIUM, PORCINE 5000 UNITS/1 ML VIAL SQ SCH ×2 (09:00→21:00)
[2023-07-09] MEDS: ASCORBIC ACID 500 MG TABLET PO SCH (09:02)
[2023-07-09] MEDS: LEVOTHYROXINE SODIUM 50 MCG TABLET PO SCH (09:02)
[2023-07-09] MEDS: LACTOBACILLUS RHAMNOSUS GG 1 EACH CAP.SPRINK PO SCH (09:02)
[2023-07-09] MEDS: FERROUS SULFATE (325 MG) 325 MG/TAB TABLET PO SCH ×3 (09:02→16:12)
[2023-07-09] MEDS: PREGABALIN 25 MG CAPSULE PO SCH ×2 (09:02→16:12)
[2023-07-09] MEDS: DULOXETINE HCL 20 MG CAPSULE.DR PO SCH (09:02)
[2023-07-09] MEDS: PANTOPRAZOLE 40 MG TABLET.DR PO SCH (09:02)
[2023-07-09] MEDS: MULTIVIT W/MINERALS 1 TAB TABLET PO SCH (09:02)
[2023-07-09] MEDS: CALCIUM ACETATE 667 MG CAP/TAB PO SCH ×3 (09:02→17:08)
[2023-07-09] MEDS: ARGININE/GLUTAMINE/CALCIUM BMB 1 EACH POWD.PACK PO SCH ×2 (09:03→16:12)
[2023-07-09] MEDS: PROSOURCE / PROSTAT (PYXIS) 30 ML UDC PO SCH ×2 (09:03→16:12)
[2023-07-09] MEDS: CALCIUM CARB 600MG /VIT D 1 EACH TABLET PO SCH (09:03)
[2023-07-09] MEDS: MUPIROCIN OINT 2% 22 GM TUBE NS SCH ×2 (10:42→21:17)
[2023-07-09] MEDS: CEFEPIME 1 GM in IV D5W 50 ML IV SCH (12:14)
[2023-07-10] VITALS: BP 104/42; TEMP 97.7; O2SAT 100
[2023-07-10] MEDS: IV D5/0.45 NACL 1,000 ML IV PRN (00:47)
[2023-07-10] MEDS: PANTOPRAZOLE 40 MG TABLET.DR PO SCH ×2 (07:30→07:44)
[2023-07-10] MEDS: LEVOTHYROXINE SODIUM 50 MCG TABLET PO SCH ×2 (07:30→07:44)
[2023-07-10] MEDS: CALCIUM ACETATE 667 MG CAP/TAB PO SCH ×4 (07:44→17:32)
[2023-07-10 07:59] LABS: CALCIUM, SERUM 9.2 mg/dL (8.5-10.1); CHLORIDE 106 mmol/L (98-107); CREATININE 3.6 mg/dL (0.6-1.3); GLUCOSE 117 mg/dL (74-106); MAGNESIUM 2.8 mg/dL (1.8-2.4); PHOSPHORUS 6.1 mg/dL (2.5-4.9); POTASSIUM 4.8 mmol/L (3.5-5.1); SODIUM SERUM 131 mmol/L (136-145)
[2023-07-10] MEDS: DULOXETINE HCL 20 MG CAPSULE.DR PO SCH (08:38)
[2023-07-10] MEDS: CALCIUM CARB 600MG /VIT D 1 EACH TABLET PO SCH (08:38)
[2023-07-10] MEDS: LACTOBACILLUS RHAMNOSUS GG 1 EACH CAP.SPRINK PO SCH (08:38)
[2023-07-10] MEDS: ARGININE/GLUTAMINE/CALCIUM BMB 1 EACH POWD.PACK PO SCH ×2 (08:39→16:49)
[2023-07-10] MEDS: FERROUS SULFATE (325 MG) 325 MG/TAB TABLET PO SCH ×3 (08:39→16:49)
[2023-07-10 08:40] LABS: CARBON DIOXIDE 8 mmol/L (21-32); UREA NITROGEN, BLOOD 132 mg/dL (7-18)
[2023-07-10] MEDS: MULTIVIT W/MINERALS 1 TAB TABLET PO SCH (08:41)
[2023-07-10] MEDS: ASCORBIC ACID 500 MG TABLET PO SCH (08:41)
[2023-07-10] MEDS: PREGABALIN 25 MG CAPSULE PO SCH ×2 (08:41→16:49)
[2023-07-10] MEDS: PROSOURCE / PROSTAT (PYXIS) 30 ML UDC PO SCH ×2 (08:41→16:50)
[2023-07-10] MEDS: HEPARIN SODIUM, PORCINE 5000 UNITS/1 ML VIAL SQ SCH ×2 (08:42→21:31)
[2023-07-10] MEDS: MUPIROCIN OINT 2% 22 GM TUBE NS SCH ×2 (08:43→21:00)
[2023-07-10 09:19] LABS: BASOPHILS % (AUTO) 0.4 % (0.0-2.0); EOSINOPHILS # (AUTO) 0.2 K/uL (0.0-0.7); EOSINOPHILS % (AUTO) 2.3 % (0.0-6.0); HEMATOCRIT 37 % (33-45); HEMOGLOBIN 11.3 g/dL (11.5-14.8); LYMPHOCYTES # (AUTO) 0.9 K/uL (0.8-4.8); LYMPHOCYTES % (AUTO) 8.8 % (20.0-44.0); MEAN CORPUSCULAR HEMOGLOBIN 28 PG (26.0-33.0); MEAN CORPUSCULAR HGB CONC 31 g/dl (31.0-36.0); MEAN CORPUSCULAR VOLUME 92 fL (82-100); MONOCYTES # (AUTO) 1.1 K/uL (0.1-1.30); MONOCYTES % (AUTO) 10.6 % (2.0-12.0); NEUTROPHILS # (AUTO) 8.3 K/uL (1.8-8.9); NEUTROPHILS % (AUTO) 77.9 % (43.0-81.0); PLATELET COUNT (AUTO) 302 K/uL (150-450); RED BLOOD CELL COUNT(AUTO) 3.98 MIL/uL (4.0-5.2); RED CELL DISTRIBUTION WIDTH 15.7 % (11.5-15.0); WHITE BLOOD COUNT (AUTO) 10.6 K/uL (4.3-11.0)
[2023-07-10 09:32] LABS: ABG BASE EXCESS -15.7 mmol/L; ABG OXYGEN SATURATION 99.3 % (92.0-98.5); ABG PCO2 26.8 mmHg (35.0-45.0); ABG PH 7.214 (7.350-7.450); ABG TOTAL HEMOGLOBIN 11.8 G/dL (12.0-16.0); COHb 0.3 % (0.5-1.5); MetHb 0.3 % (0.0-1.5); O2Hb 98.7 % (94.0-97.0); SITE, ABG Right Radial; VENT MODE, BG 3 LPM NC
[2023-07-10] MEDS ORDERED: Sodium Bicarbonate 150 MEQ in IV D5W 1,000 ML IV SCH (10:00)
[2023-07-10] MEDS ORDERED: SODIUM BICARBONATE SYR 50 MEQ/50 ML DISP.SYRIN IV ONE (10:00)
[2023-07-10] MEDS ORDERED: SODIUM BICARBONATE SYR 50 MEQ/50 ML DISP.SYRIN ONE (10:34)
[2023-07-10] MEDS: Sodium Bicarbonate 150 MEQ in IV D5W 1,000 ML IV SCH (10:41)
[2023-07-10 12:00] VITALS: BP 100/52; TEMP 97.6; O2SAT 94
[2023-07-10] MEDS: VANCOMYCIN 1 GM in IV D5W 250 ML IV SCH (12:36)
[2023-07-10] MEDS: CEFEPIME 1 GM in IV D5W 50 ML IV SCH (14:04)
[2023-07-10] MEDS ORDERED: IOHEXOL-300 100 ML VIAL IV ONE (15:38)
[2023-07-10 20:00] VITALS: BP 92/59; TEMP 97.2; O2SAT 93
[2023-07-11] VITALS: BP 102/51; TEMP 97.7; O2SAT 94
[2023-07-11] MEDS: Sodium Bicarbonate 150 MEQ in IV D5W 1,000 ML IV SCH ×2 (02:49→16:53)
[2023-07-11 04:00] VITALS: BP 99/59; TEMP 98.2; O2SAT 97
[2023-07-11 06:45] LABS: BASOPHILS % (AUTO) 0.3 % (0.0-2.0); EOSINOPHILS # (AUTO) 0.2 K/uL (0.0-0.7); EOSINOPHILS % (AUTO) 2.2 % (0.0-6.0); HEMATOCRIT 35 % (33-45); HEMOGLOBIN 10.9 g/dL (11.5-14.8); LYMPHOCYTES # (AUTO) 0.7 K/uL (0.8-4.8); LYMPHOCYTES % (AUTO) 7.3 % (20.0-44.0); MEAN CORPUSCULAR HEMOGLOBIN 29 PG (26.0-33.0); MEAN CORPUSCULAR HGB CONC 32 g/dl (31.0-36.0); MEAN CORPUSCULAR VOLUME 91 fL (82-100); MONOCYTES # (AUTO) 1.2 K/uL (0.1-1.30); MONOCYTES % (AUTO) 13.1 % (2.0-12.0); NEUTROPHILS # (AUTO) 7.1 K/uL (1.8-8.9); NEUTROPHILS % (AUTO) 77.1 % (43.0-81.0); PLATELET COUNT (AUTO) 256 K/uL (150-450); RED BLOOD CELL COUNT(AUTO) 3.79 MIL/uL (4.0-5.2); RED CELL DISTRIBUTION WIDTH 15.7 % (11.5-15.0); WHITE BLOOD COUNT (AUTO) 9.2 K/uL (4.3-11.0)
[2023-07-11 07:02] LABS: CALCIUM, SERUM 8.2 mg/dL (8.5-10.1); CARBON DIOXIDE 18 mmol/L (21-32); CHLORIDE 103 mmol/L (98-107); CREATININE 3.3 mg/dL (0.6-1.3); GLUCOSE 107 mg/dL (74-106); POTASSIUM 3.6 mmol/L (3.5-5.1); SODIUM SERUM 136 mmol/L (136-145)
[2023-07-11 07:06] LABS: UREA NITROGEN, BLOOD 122 mg/dL (7-18)
[2023-07-11 08:00] VITALS: BP 91/52; TEMP 98.6; O2SAT 94
[2023-07-11] MEDS: HEPARIN SODIUM, PORCINE 5000 UNITS/1 ML VIAL SQ SCH ×3 (09:00→22:37)
[2023-07-11] MEDS: MULTIVIT W/MINERALS 1 TAB TABLET PO SCH (09:47)
[2023-07-11] MEDS: LACTOBACILLUS RHAMNOSUS GG 1 EACH CAP.SPRINK PO SCH (09:47)
[2023-07-11] MEDS: CALCIUM CARB 600MG /VIT D 1 EACH TABLET PO SCH (09:47)
[2023-07-11] MEDS: DULOXETINE HCL 20 MG CAPSULE.DR PO SCH (09:47)
[2023-07-11] MEDS: ASCORBIC ACID 500 MG TABLET PO SCH (09:47)
[2023-07-11] MEDS: PREGABALIN 25 MG CAPSULE PO SCH ×2 (09:48→17:19)
[2023-07-11] MEDS: FERROUS SULFATE (325 MG) 325 MG/TAB TABLET PO SCH ×3 (09:48→17:19)
[2023-07-11] MEDS: CALCIUM ACETATE 667 MG CAP/TAB PO SCH ×3 (09:48→17:19)
[2023-07-11] MEDS: ARGININE/GLUTAMINE/CALCIUM BMB 1 EACH POWD.PACK PO SCH ×2 (09:49→17:19)
[2023-07-11] MEDS: PROSOURCE / PROSTAT (PYXIS) 30 ML UDC PO SCH ×2 (09:49→17:19)
[2023-07-11] MEDS: PANTOPRAZOLE 40 MG TABLET.DR PO SCH (09:58)
[2023-07-11] MEDS: LEVOTHYROXINE SODIUM 50 MCG TABLET PO SCH (10:01)
[2023-07-11] MEDS: MUPIROCIN OINT 2% 22 GM TUBE NS SCH ×2 (10:02→21:39)
[2023-07-11] MEDS ORDERED: FLUMAZENIL 0.5 MG VIAL IV PRN (10:30)
[2023-07-11] MEDS ORDERED: FENTANYL PF 250MCG/5ML AMPUL IV PRN (10:30)
[2023-07-11] MEDS ORDERED: MIDAZOLAM HCL 2 MG/2ML VIAL IV PRN (10:30)
[2023-07-11] MEDS ORDERED: NALOXONE PREFILLED SYRINGE 2 MG/2 ML SYRINGE IV PRN (10:30)
[2023-07-11] MEDS ORDERED: LIDOCAINE 1% INJ 50 ML MDV IJ ONE (10:59)
[2023-07-11] MEDS: CEFEPIME 1 GM in IV D5W 50 ML IV SCH (12:43)
[2023-07-11 16:00] VITALS: BP 94/57; TEMP 98.2; O2SAT 99
[2023-07-11 20:00] VITALS: BP 115/60; TEMP 97.3; O2SAT 100
[2023-07-12] VITALS (59 sets, daily range): BP systolic 62–143; BP diastolic 33–113; TEMP 97.2–98.5; O2SAT 99–100
[2023-07-12] MEDS ORDERED: IV NS 0.9% 1,000 ML BAG IV ONE (05:30)
[2023-07-12] MEDS ORDERED: HYDROCORTISONE SOD SUCCINATE 100 MG/2 ML VIAL IV ONE (06:30)
[2023-07-12 07:28] LABS: BASOPHILS % (AUTO) 0.5 % (0.0-2.0); EOSINOPHILS # (AUTO) 0.1 K/uL (0.0-0.7); EOSINOPHILS % (AUTO) 2.2 % (0.0-6.0); HEMATOCRIT 27 % (33-45); HEMOGLOBIN 8.7 g/dL (11.5-14.8); LYMPHOCYTES # (AUTO) 0.9 K/uL (0.8-4.8); LYMPHOCYTES % (AUTO) 14.3 % (20.0-44.0); MEAN CORPUSCULAR HEMOGLOBIN 29 PG (26.0-33.0); MEAN CORPUSCULAR HGB CONC 33 g/dl (31.0-36.0); MEAN CORPUSCULAR VOLUME 89 fL (82-100); MONOCYTES # (AUTO) 0.8 K/uL (0.1-1.30); MONOCYTES % (AUTO) 12.7 % (2.0-12.0); NEUTROPHILS # (AUTO) 4.4 K/uL (1.8-8.9); NEUTROPHILS % (AUTO) 70.3 % (43.0-81.0); PLATELET COUNT (AUTO) 195 K/uL (150-450); RED BLOOD CELL COUNT(AUTO) 2.99 MIL/uL (4.0-5.2); RED CELL DISTRIBUTION WIDTH 15.5 % (11.5-15.0); WHITE BLOOD COUNT (AUTO) 6.3 K/uL (4.3-11.0)
[2023-07-12] MEDS ORDERED: NOREPINEPHRINE 32 MG in IV NS 0.9% 218 ML IV PRN (07:30)
[2023-07-12] MEDS: PANTOPRAZOLE 40 MG TABLET.DR PO SCH (07:30)
[2023-07-12] MEDS: NOREPINEPHRINE 8 MG in IV NS 0.9% 242 ML IV PRN (07:31)
[2023-07-12] MEDS: CALCIUM ACETATE 667 MG CAP/TAB PO SCH (08:00)
[2023-07-12 08:51] LABS: CALCIUM, SERUM 8.3 mg/dL (8.5-10.1); CARBON DIOXIDE 26 mmol/L (21-32); CHLORIDE 105 mmol/L (98-107); CREATININE 2.7 mg/dL (0.6-1.3); GLUCOSE 118 mg/dL (74-106); SODIUM SERUM 141 mmol/L (136-145)
[2023-07-12 08:55] LABS: UREA NITROGEN, BLOOD 114 mg/dL (7-18)
[2023-07-12] MEDS: ASCORBIC ACID 500 MG TABLET PO SCH (09:00)
[2023-07-12] MEDS: PROSOURCE / PROSTAT (PYXIS) 30 ML UDC PO SCH (09:00)
[2023-07-12] MEDS: LACTOBACILLUS RHAMNOSUS GG 1 EACH CAP.SPRINK PO SCH (09:00)
[2023-07-12] MEDS: ARGININE/GLUTAMINE/CALCIUM BMB 1 EACH POWD.PACK PO SCH (09:00)
[2023-07-12] MEDS: CALCIUM CARB 600MG /VIT D 1 EACH TABLET PO SCH (09:00)
[2023-07-12] MEDS: MULTIVIT W/MINERALS 1 TAB TABLET PO SCH (09:00)
[2023-07-12] MEDS: Sodium Bicarbonate 150 MEQ in IV D5W 1,000 ML IV SCH ×2 (09:21→23:06)
[2023-07-12] MEDS ORDERED: VANCOMYCIN 1 GM in IV D5W 250 ML IV SCH (11:00)
[2023-07-12] MEDS: IV NS 0.9% 250 ML IV PRN (11:02)
[2023-07-12] MEDS: POTASSIUM CL. PREMIX PERIPHER. 50 ML IV SCH ×4 (11:06→13:52)
[2023-07-12 12:48] LABS: ABG BASE EXCESS -3.6 mmol/L; ABG OXYGEN SATURATION 97.7 % (92.0-98.5); ABG PCO2 35.1 mmHg (35.0-45.0); ABG PH 7.389 (7.350-7.450); ABG PO2 115.5 mmHg (75.0-100.0); ABG TOTAL HEMOGLOBIN 11.8 G/dL (12.0-16.0); AaDO2 93.2 mmHg; COHb 0.3 % (0.5-1.5); MetHb 0.3 % (0.0-1.5); O2Hb 97.1 % (94.0-97.0); SITE, ABG Right Radial; VENT MODE, BG NASAL CANNULA
[2023-07-12] MEDS ORDERED: MAG HYDROX/AL HYDROX/SIMETH 30 ML UDC GT PRN (13:03)
[2023-07-12] MEDS ORDERED: CALCIUM CARBONATE 500 MG TAB.CHEW GT PRN (13:04)
[2023-07-12] MEDS ORDERED: MAGNESIUM HYDROXIDE 30 ML UDC GT PRN (13:04)
[2023-07-12] MEDS ORDERED: ZOLPIDEM TARTRATE 5 MG TABLET GT PRN (13:04)
[2023-07-12] MEDS: CEFEPIME 1 GM in IV D5W 50 ML IV SCH (13:14)
[2023-07-12] MEDS: HEPARIN SODIUM, PORCINE 5000 UNITS/1 ML VIAL SQ SCH ×2 (13:26→20:27)
[2023-07-12] MEDS: MUPIROCIN OINT 2% 22 GM TUBE NS SCH ×2 (14:35→20:26)
[2023-07-12] MEDS: Z GUARD REMEDY 4 OZ OINT TP SCH ×2 (14:36→20:26)
[2023-07-12] MEDS: NEPRO 1,000 ML BOTTLE GT PRN (15:00)
[2023-07-12] MEDS: PROSOURCE / PROSTAT (PYXIS) 30 ML UDC GT SCH (16:55)
[2023-07-12] MEDS: ARGININE/GLUTAMINE/CALCIUM BMB 1 EACH POWD.PACK GT SCH (16:56)
[2023-07-12] MEDS: PREGABALIN 25 MG CAPSULE GT SCH (16:56)
[2023-07-12] MEDS: FERROUS SULFATE (325 MG) 325 MG/TAB TABLET GT SCH (16:56)
[2023-07-12] MEDS: CALCIUM ACETATE 667 MG CAP/TAB GT SCH (17:08)
[2023-07-13] VITALS (40 sets, daily range): BP systolic 89–140; BP diastolic 40–82; TEMP 97.5–98; O2SAT 98–100
[2023-07-13] MEDS: NOREPINEPHRINE 8 MG in IV NS 0.9% 242 ML IV PRN (03:46)
[2023-07-13 04:52] LABS: BASOPHILS # (AUTO) 0.1 K/uL (0.0-0.2); BASOPHILS % (AUTO) 0.7 % (0.0-2.0); EOSINOPHILS # (AUTO) 0.2 K/uL (0.0-0.7); EOSINOPHILS % (AUTO) 1.8 % (0.0-6.0); HEMATOCRIT 29 % (33-45); HEMOGLOBIN 9.5 g/dL (11.5-14.8); LYMPHOCYTES # (AUTO) 0.9 K/uL (0.8-4.8); LYMPHOCYTES % (AUTO) 9.5 % (20.0-44.0); MEAN CORPUSCULAR HEMOGLOBIN 29 PG (26.0-33.0); MEAN CORPUSCULAR HGB CONC 33 g/dl (31.0-36.0); MEAN CORPUSCULAR VOLUME 88 fL (82-100); MONOCYTES # (AUTO) 0.9 K/uL (0.1-1.30); NEUTROPHILS # (AUTO) 7.8 K/uL (1.8-8.9); PLATELET COUNT (AUTO) 292 K/uL (150-450); RED CELL DISTRIBUTION WIDTH 15.5 % (11.5-15.0); WHITE BLOOD COUNT (AUTO) 9.9 K/uL (4.3-11.0)
[2023-07-13 04:59] LABS: CALCIUM, SERUM 7.9 mg/dL (8.5-10.1); CARBON DIOXIDE 34 mmol/L (21-32); CHLORIDE 104 mmol/L (98-107); CREATININE 2.1 mg/dL (0.6-1.3); GLUCOSE 130 mg/dL (74-106); SODIUM SERUM 143 mmol/L (136-145)
[2023-07-13 05:10] LABS: POTASSIUM 2.7 mmol/L (3.5-5.1)
[2023-07-13 05:11] LABS: UREA NITROGEN, BLOOD 107 mg/dL (7-18)
[2023-07-13 05:30] LABS: EOSINOPHILS % (MANUAL) 3 % (0-4); LYMPHOCYTES % (MANUAL) 7 % (16-48); METAMYELOCYTES % 1 % (0-0); MONOCYTES % (MANUAL) 4 % (0-11.0); MYELOCYTES % 1 % (0-0); NEUTROPHILS % (MANUAL) 84 (42-76); PLATELET ESTIMATE ADEQUATE
[2023-07-13] MEDS: POTASSIUM CL. PREMIX PERIPHER. 50 ML IV SCH ×4 (06:41→09:35)
[2023-07-13] MEDS: PANTOPRAZOLE 40 MG/PACK PACK GT SCH (07:27)
[2023-07-13] MEDS: CALCIUM ACETATE 667 MG CAP/TAB GT SCH ×3 (07:27→17:23)
[2023-07-13] MEDS: LEVOTHYROXINE SODIUM 50 MCG TABLET GT SCH (07:29)
[2023-07-13] MEDS: LACTOBACILLUS RHAMNOSUS GG 1 EACH CAP.SPRINK GT SCH (08:34)
[2023-07-13] MEDS: CALCIUM CARB 600MG /VIT D 1 EACH TABLET GT SCH (08:35)
[2023-07-13] MEDS: PROSOURCE / PROSTAT (PYXIS) 30 ML UDC GT SCH ×2 (08:35→17:23)
[2023-07-13] MEDS: PREGABALIN 25 MG CAPSULE GT SCH ×2 (08:35→17:24)
[2023-07-13] MEDS: DULOXETINE HCL 20 MG CAPSULE.DR GT SCH (08:35)
[2023-07-13] MEDS: MULTIVIT W/MINERALS 1 TAB TABLET GT SCH (08:35)
[2023-07-13] MEDS: ASCORBIC ACID 500 MG TABLET GT SCH (08:35)
[2023-07-13] MEDS: FERROUS SULFATE (325 MG) 325 MG/TAB TABLET GT SCH ×3 (08:35→17:23)
[2023-07-13] MEDS: MUPIROCIN OINT 2% 22 GM TUBE NS SCH ×2 (08:36→21:28)
[2023-07-13] MEDS: Z GUARD REMEDY 4 OZ OINT TP SCH ×2 (08:36→21:28)
[2023-07-13] MEDS: ARGININE/GLUTAMINE/CALCIUM BMB 1 EACH POWD.PACK GT SCH ×2 (08:49→17:24)
[2023-07-13] MEDS: HEPARIN SODIUM, PORCINE 5000 UNITS/1 ML VIAL SQ SCH ×2 (09:33→21:27)
[2023-07-13] MEDS: Sodium Bicarbonate 150 MEQ in IV D5W 1,000 ML IV SCH (11:03)
[2023-07-13] MEDS: CEFEPIME 1 GM in IV D5W 50 ML IV SCH (11:36)
[2023-07-13] MEDS: NEPRO 1,000 ML BOTTLE GT PRN (19:12)
[2023-07-13] MEDS ORDERED: VANCOMYCIN 1 GM in IV D5W 250 ML IV SCH (23:00)
[2023-07-14] VITALS (21 sets, daily range): BP systolic 95–130; BP diastolic 38–72; TEMP 97.2–98; O2SAT 98–100
[2023-07-14] MEDS: Sodium Bicarbonate 150 MEQ in IV D5W 1,000 ML IV SCH ×2 (01:46→16:14)
[2023-07-14 05:34] LABS: CALCIUM, SERUM 7.9 mg/dL (8.5-10.1); CARBON DIOXIDE 38 mmol/L (21-32); CHLORIDE 103 mmol/L (98-107); CREATININE 1.7 mg/dL (0.6-1.3); GLUCOSE 127 mg/dL (74-106); SODIUM SERUM 145 mmol/L (136-145)
[2023-07-14 05:48] LABS: POTASSIUM 2.7 mmol/L (3.5-5.1); UREA NITROGEN, BLOOD 94 mg/dL (7-18)
[2023-07-14 05:55] LABS: BASOPHILS % (AUTO) 0.3 % (0.0-2.0); EOSINOPHILS # (AUTO) 0.2 K/uL (0.0-0.7); EOSINOPHILS % (AUTO) 1.9 % (0.0-6.0); HEMATOCRIT 30 % (33-45); LYMPHOCYTES # (AUTO) 0.7 K/uL (0.8-4.8); LYMPHOCYTES % (AUTO) 7.8 % (20.0-44.0); MEAN CORPUSCULAR HEMOGLOBIN 29 PG (26.0-33.0); MEAN CORPUSCULAR HGB CONC 33 g/dl (31.0-36.0); MEAN CORPUSCULAR VOLUME 88 fL (82-100); MONOCYTES # (AUTO) 0.5 K/uL (0.1-1.30); MONOCYTES % (AUTO) 5.8 % (2.0-12.0); NEUTROPHILS # (AUTO) 7.4 K/uL (1.8-8.9); NEUTROPHILS % (AUTO) 84.2 % (43.0-81.0); PLATELET COUNT (AUTO) 228 K/uL (150-450); RED BLOOD CELL COUNT(AUTO) 3.46 MIL/uL (4.0-5.2); RED CELL DISTRIBUTION WIDTH 15.1 % (11.5-15.0); WHITE BLOOD COUNT (AUTO) 8.8 K/uL (4.3-11.0)
[2023-07-14] MEDS: POTASSIUM CL. PREMIX PERIPHER. 50 ML IV SCH ×4 (07:42→10:49)
[2023-07-14] MEDS: ARGININE/GLUTAMINE/CALCIUM BMB 1 EACH POWD.PACK GT SCH (08:06)
[2023-07-14] MEDS: PREGABALIN 25 MG CAPSULE GT SCH ×2 (08:06→17:11)
[2023-07-14] MEDS: ASCORBIC ACID 500 MG TABLET GT SCH (08:06)
[2023-07-14] MEDS: LACTOBACILLUS RHAMNOSUS GG 1 EACH CAP.SPRINK GT SCH (08:06)
[2023-07-14] MEDS: CALCIUM CARB 600MG /VIT D 1 EACH TABLET GT SCH (08:06)
[2023-07-14] MEDS: MULTIVIT W/MINERALS 1 TAB TABLET GT SCH (08:06)
[2023-07-14] MEDS: DULOXETINE HCL 20 MG CAPSULE.DR GT SCH (08:06)
[2023-07-14] MEDS: FERROUS SULFATE (325 MG) 325 MG/TAB TABLET GT SCH ×3 (08:06→17:10)
[2023-07-14] MEDS: HEPARIN SODIUM, PORCINE 5000 UNITS/1 ML VIAL SQ SCH (08:07)
[2023-07-14] MEDS: LEVOTHYROXINE SODIUM 50 MCG TABLET GT SCH (08:11)
[2023-07-14] MEDS: PANTOPRAZOLE 40 MG/PACK PACK GT SCH (08:11)
[2023-07-14] MEDS: CALCIUM ACETATE 667 MG CAP/TAB GT SCH ×3 (08:11→17:10)
[2023-07-14] MEDS: Z GUARD REMEDY 4 OZ OINT TP SCH ×2 (09:07→22:42)
[2023-07-14] MEDS: MUPIROCIN OINT 2% 22 GM TUBE NS SCH ×2 (09:08→22:41)
[2023-07-14] MEDS: PROSOURCE / PROSTAT (PYXIS) 30 ML UDC GT SCH ×2 (09:08→12:26)
[2023-07-14] MEDS: ACETAMINOPHEN 650 MG/20.3 ML UDC GT PRN (11:33)
[2023-07-14] MEDS: CEFEPIME 1 GM in IV D5W 50 ML IV SCH (12:24)
[2023-07-14] MEDS: NEPRO 1,000 ML BOTTLE GT PRN (12:44)
[2023-07-14] MEDS: IV NS 0.9% 250 ML IV PRN (14:38)
[2023-07-14 14:39] LABS: CALCIUM, SERUM 8.4 mg/dL (8.5-10.1); CARBON DIOXIDE 38 mmol/L (21-32); CHLORIDE 104 mmol/L (98-107); CREATININE 1.5 mg/dL (0.6-1.3); GLUCOSE 129 mg/dL (74-106); POTASSIUM 3.3 mmol/L (3.5-5.1); SODIUM SERUM 146 mmol/L (136-145)
[2023-07-14 14:42] LABS: UREA NITROGEN, BLOOD 105 mg/dL (7-18)
[2023-07-14 16:35] LABS: MAGNESIUM 1.3 mg/dL (1.8-2.4); POTASSIUM 3.2 mmol/L (3.5-5.1)
[2023-07-14 18:55] LABS: CHLORIDE,URINE RANDOM 57 mmol/L (55-125); POTASSIUM RNDM,URINE 22 mmol/L (25-125); URINE SODIUM, RANDOM 65 mmol/l (40-220)
[2023-07-14] MEDS: VANCOMYCIN 1 GM in IV D5W 250 ML IV SCH (22:48)
[2023-07-15] VITALS: BP 128/81; TEMP 98; O2SAT 98
[2023-07-15 04:00] VITALS: BP 110/64; TEMP 98.3; O2SAT 98
[2023-07-15] MEDS: NEPRO 1,000 ML BOTTLE GT PRN (05:20)
[2023-07-15 06:39] LABS: BASOPHILS % (AUTO) 0.2 % (0.0-2.0); EOSINOPHILS # (AUTO) 0.2 K/uL (0.0-0.7); EOSINOPHILS % (AUTO) 2.7 % (0.0-6.0); HEMATOCRIT 32 % (33-45); HEMOGLOBIN 10.1 g/dL (11.5-14.8); LYMPHOCYTES # (AUTO) 0.7 K/uL (0.8-4.8); LYMPHOCYTES % (AUTO) 8.6 % (20.0-44.0); MEAN CORPUSCULAR HEMOGLOBIN 29 PG (26.0-33.0); MEAN CORPUSCULAR HGB CONC 32 g/dl (31.0-36.0); MEAN CORPUSCULAR VOLUME 90 fL (82-100); MONOCYTES # (AUTO) 0.5 K/uL (0.1-1.30); MONOCYTES % (AUTO) 5.6 % (2.0-12.0); NEUTROPHILS # (AUTO) 6.9 K/uL (1.8-8.9); NEUTROPHILS % (AUTO) 82.9 % (43.0-81.0); PLATELET COUNT (AUTO) 202 K/uL (150-450); RED BLOOD CELL COUNT(AUTO) 3.54 MIL/uL (4.0-5.2); RED CELL DISTRIBUTION WIDTH 15.2 % (11.5-15.0); WHITE BLOOD COUNT (AUTO) 8.3 K/uL (4.3-11.0)
[2023-07-15 06:40] LABS: CALCIUM, SERUM 7.9 mg/dL (8.5-10.1); CHLORIDE 101 mmol/L (98-107); CREATININE 1.6 mg/dL (0.6-1.3); GLUCOSE 144 mg/dL (74-106); SODIUM SERUM 144 mmol/L (136-145); UREA NITROGEN, BLOOD 92 mg/dL (7-18)
[2023-07-15 06:43] LABS: CARBON DIOXIDE 41 mmol/L (21-32)
[2023-07-15] MEDS: Sodium Bicarbonate 150 MEQ in IV D5W 1,000 ML IV SCH (06:51)
[2023-07-15] MEDS: PROSOURCE / PROSTAT (PYXIS) 30 ML UDC GT SCH (08:28)
[2023-07-15] MEDS: POTASSIUM CL. PREMIX PERIPHER. 50 ML IV SCH ×5 (08:28→13:05)
[2023-07-15] MEDS: VIT B CMPLX 3/FA/VIT C/BIOTIN 1 TAB TABLET GT SCH (08:29)
[2023-07-15] MEDS: CALCIUM ACETATE 667 MG CAP/TAB GT SCH ×3 (08:29→17:59)
[2023-07-15] MEDS: CALCIUM CARB 600MG /VIT D 1 EACH TABLET GT SCH (08:29)
[2023-07-15] MEDS: LACTOBACILLUS RHAMNOSUS GG 1 EACH CAP.SPRINK GT SCH (08:29)
[2023-07-15] MEDS: DULOXETINE HCL 20 MG CAPSULE.DR GT SCH (08:29)
[2023-07-15] MEDS: FERROUS SULFATE (325 MG) 325 MG/TAB TABLET GT SCH ×3 (08:29→17:58)
[2023-07-15] MEDS: PREGABALIN 25 MG CAPSULE GT SCH ×2 (08:29→17:58)
[2023-07-15] MEDS: LEVOTHYROXINE SODIUM 50 MCG TABLET GT SCH (08:29)
[2023-07-15] MEDS: PANTOPRAZOLE 40 MG/PACK PACK GT SCH (08:29)
[2023-07-15] MEDS: MUPIROCIN OINT 2% 22 GM TUBE NS SCH ×2 (08:30→20:26)
[2023-07-15] MEDS: Z GUARD REMEDY 4 OZ OINT TP SCH ×2 (08:31→20:27)
[2023-07-15 10:00] VITALS: BP 107/49; TEMP 97.9; O2SAT 100
[2023-07-15 12:00] VITALS: BP 103/48; TEMP 97.5; O2SAT 99
[2023-07-15] MEDS: CEFEPIME 1 GM in IV D5W 50 ML IV SCH (12:13)
[2023-07-15] MEDS: Potassium Chloride 10 MEQ in IV D5W 1,000 ML IV SCH ×2 (12:20→22:34)
[2023-07-15 16:00] VITALS: BP 101/48; TEMP 98.2; O2SAT 98
[2023-07-15 20:00] VITALS: BP 99/43; TEMP 98.8; O2SAT 95
[2023-07-15] MEDS ORDERED: D5W IV ONE (23:00)
[2023-07-15] MEDS ORDERED: SODIUM BICARBONATE IV ONE (23:00)
[2023-07-15] MEDS ORDERED: POTASSIUM CHLORIDE 10 MEQ/50 ML PREMIXED IVPB FOR PERIPHERAL LINE IV ONE (23:00)
[2023-07-15] MEDS: VANCOMYCIN 1 GM in IV D5W 250 ML IV SCH (23:09)
[2023-07-15] MEDS ORDERED: Potassium Chloride 10 MEQ in IV D5W 50 ML IV ONE (23:45)
[2023-07-16] VITALS: BP 101/45; TEMP 98.2; O2SAT 96
[2023-07-16] MEDS ORDERED: POTASSIUM CHLORIDE 10 MEQ/50 ML PREMIXED IVPB FOR PERIPHERAL LINE IV ONE
[2023-07-16] MEDS ORDERED: POTASSIUM CL. PREMIX PERIPHER. 50 ML ONE (01:24)
[2023-07-16] MEDS ORDERED: SODIUM BICARBONATE SYR 50 MEQ/50 ML DISP.SYRIN ONE ×2 (01:26→01:27)
[2023-07-16 04:00] VITALS: BP 101/64; TEMP 98.2; O2SAT 97
[2023-07-16 06:40] LABS: BASOPHILS % (AUTO) 0.2 % (0.0-2.0); EOSINOPHILS # (AUTO) 0.2 K/uL (0.0-0.7); EOSINOPHILS % (AUTO) 2.2 % (0.0-6.0); HEMATOCRIT 29 % (33-45); HEMOGLOBIN 9.5 g/dL (11.5-14.8); LYMPHOCYTES # (AUTO) 0.7 K/uL (0.8-4.8); LYMPHOCYTES % (AUTO) 7.3 % (20.0-44.0); MEAN CORPUSCULAR HEMOGLOBIN 29 PG (26.0-33.0); MEAN CORPUSCULAR HGB CONC 33 g/dl (31.0-36.0); MEAN CORPUSCULAR VOLUME 89 fL (82-100); MONOCYTES # (AUTO) 0.5 K/uL (0.1-1.30); MONOCYTES % (AUTO) 5.7 % (2.0-12.0); NEUTROPHILS # (AUTO) 7.9 K/uL (1.8-8.9); NEUTROPHILS % (AUTO) 84.6 % (43.0-81.0); PLATELET COUNT (AUTO) 190 K/uL (150-450); RED BLOOD CELL COUNT(AUTO) 3.31 MIL/uL (4.0-5.2); RED CELL DISTRIBUTION WIDTH 15.3 % (11.5-15.0); WHITE BLOOD COUNT (AUTO) 9.3 K/uL (4.3-11.0)
[2023-07-16 07:46] LABS: CHLORIDE 97 mmol/L (98-107); CREATININE 1.5 mg/dL (0.6-1.3); GLUCOSE 137 mg/dL (74-106); POTASSIUM 3.4 mmol/L (3.5-5.1); SODIUM SERUM 141 mmol/L (136-145); UREA NITROGEN, BLOOD 79 mg/dL (7-18)
[2023-07-16 08:00] VITALS: BP 135/59; TEMP 98.6; O2SAT 98
[2023-07-16] MEDS: CALCIUM ACETATE 667 MG CAP/TAB GT SCH ×3 (08:08→17:37)
[2023-07-16] MEDS: DULOXETINE HCL 20 MG CAPSULE.DR GT SCH (08:08)
[2023-07-16] MEDS: PANTOPRAZOLE 40 MG/PACK PACK GT SCH (08:08)
[2023-07-16] MEDS: LACTOBACILLUS RHAMNOSUS GG 1 EACH CAP.SPRINK GT SCH (08:08)
[2023-07-16] MEDS: PREGABALIN 25 MG CAPSULE GT SCH ×2 (08:08→17:37)
[2023-07-16] MEDS: LEVOTHYROXINE SODIUM 50 MCG TABLET GT SCH (08:08)
[2023-07-16] MEDS: CALCIUM CARB 600MG /VIT D 1 EACH TABLET GT SCH (08:09)
[2023-07-16] MEDS: FERROUS SULFATE (325 MG) 325 MG/TAB TABLET GT SCH ×3 (08:09→17:37)
[2023-07-16] MEDS: VIT B CMPLX 3/FA/VIT C/BIOTIN 1 TAB TABLET GT SCH (08:09)
[2023-07-16] MEDS: PROSOURCE / PROSTAT (PYXIS) 30 ML UDC GT SCH (08:10)
[2023-07-16 08:12] LABS: CARBON DIOXIDE 41 mmol/L (21-32); MAGNESIUM 1.2 mg/dL (1.8-2.4); PHOSPHORUS 0.4 mg/dL (2.5-4.9)
[2023-07-16] MEDS: Z GUARD REMEDY 4 OZ OINT TP SCH ×2 (08:32→20:40)
[2023-07-16] MEDS: NEPRO 1,000 ML BOTTLE GT PRN (09:30)
[2023-07-16] MEDS ORDERED: MAGNESIUM OXIDE 400 MG TABLET NG ONE (10:00)
[2023-07-16] MEDS: CEFEPIME 1 GM in IV D5W 50 ML IV SCH (11:03)
[2023-07-16 12:00] VITALS: BP 94/59; TEMP 98.6; O2SAT 98
[2023-07-16] MEDS ORDERED: NEUTRA PHOS 1 POWD.PACKET PO ONE (15:00)
[2023-07-16] MEDS: POTASSIUM PHOSPHATE MM 7.5 MMOL in IV NS 0.9% 100 ML IV SCH ×2 (15:44→19:14)
[2023-07-16 16:00] VITALS: BP 108/81; TEMP 99.1; O2SAT 96
[2023-07-16] MEDS: ACETAMINOPHEN 650 MG/20.3 ML UDC GT PRN (18:55)
[2023-07-16] MEDS ORDERED: METOPROLOL TARTRATE INJ 5 MG/5 ML AMPUL IVP ONE (19:30)
[2023-07-16 20:00] VITALS: BP 97/58; TEMP 99; O2SAT 100
[2023-07-16] MEDS: VANCOMYCIN 1 GM in IV D5W 250 ML IV SCH (23:00)
[2023-07-16] MEDS ORDERED: AMIODARONE 450 MG in IV D5W 241 ML IV PRN (23:30)
[2023-07-16] MEDS ORDERED: AMIODARONE 150 MG in IV D5W 100 ML IV ONE (23:30)
[2023-07-16] MEDS ORDERED: AMIODARONE 150 MG/3 ML VIAL IV ONE ×2 (23:37)
[2023-07-17] VITALS (41 sets, daily range): BP systolic 76–137; BP diastolic 21–103; TEMP 97.9–99.5; O2SAT 94–100
[2023-07-17 07:22] LABS: BASOPHILS % (AUTO) 0.4 % (0.0-2.0); EOSINOPHILS # (AUTO) 0.3 K/uL (0.0-0.7); EOSINOPHILS % (AUTO) 2.8 % (0.0-6.0); HEMATOCRIT 29 % (33-45); HEMOGLOBIN 9.4 g/dL (11.5-14.8); LYMPHOCYTES # (AUTO) 0.9 K/uL (0.8-4.8); LYMPHOCYTES % (AUTO) 9.5 % (20.0-44.0); MEAN CORPUSCULAR HEMOGLOBIN 29 PG (26.0-33.0); MEAN CORPUSCULAR HGB CONC 32 g/dl (31.0-36.0); MEAN CORPUSCULAR VOLUME 91 fL (82-100); MONOCYTES # (AUTO) 0.5 K/uL (0.1-1.30); MONOCYTES % (AUTO) 5.4 % (2.0-12.0); NEUTROPHILS # (AUTO) 7.5 K/uL (1.8-8.9); NEUTROPHILS % (AUTO) 81.9 % (43.0-81.0); PLATELET COUNT (AUTO) 178 K/uL (150-450); RED BLOOD CELL COUNT(AUTO) 3.25 MIL/uL (4.0-5.2); RED CELL DISTRIBUTION WIDTH 15.8 % (11.5-15.0); WHITE BLOOD COUNT (AUTO) 9.1 K/uL (4.3-11.0)
[2023-07-17 07:36] LABS: CALCIUM, SERUM 8.1 mg/dL (8.5-10.1); CHLORIDE 99 mmol/L (98-107); CREATININE 1.6 mg/dL (0.6-1.3); GLUCOSE 103 mg/dL (74-106); MAGNESIUM 1.3 mg/dL (1.8-2.4); PHOSPHORUS 1.3 mg/dL (2.5-4.9); POTASSIUM 3.6 mmol/L (3.5-5.1); SODIUM SERUM 141 mmol/L (136-145); UREA NITROGEN, BLOOD 73 mg/dL (7-18)
[2023-07-17 08:04] LABS: CARBON DIOXIDE 40 mmol/L (21-32)
[2023-07-17] MEDS: LACTOBACILLUS RHAMNOSUS GG 1 EACH CAP.SPRINK GT SCH (08:32)
[2023-07-17] MEDS: VIT B CMPLX 3/FA/VIT C/BIOTIN 1 TAB TABLET GT SCH (08:32)
[2023-07-17] MEDS: PREGABALIN 25 MG CAPSULE GT SCH ×2 (08:32→16:39)
[2023-07-17] MEDS: PANTOPRAZOLE 40 MG/PACK PACK GT SCH (08:32)
[2023-07-17] MEDS: LEVOTHYROXINE SODIUM 50 MCG TABLET GT SCH (08:32)
[2023-07-17] MEDS: CALCIUM CARB 600MG /VIT D 1 EACH TABLET GT SCH (08:32)
[2023-07-17] MEDS: FERROUS SULFATE (325 MG) 325 MG/TAB TABLET GT SCH ×3 (08:32→16:39)
[2023-07-17] MEDS: PROSOURCE / PROSTAT (PYXIS) 30 ML UDC GT SCH (08:32)
[2023-07-17] MEDS: CALCIUM ACETATE 667 MG CAP/TAB GT SCH ×3 (08:32→17:09)
[2023-07-17] MEDS: DULOXETINE HCL 20 MG CAPSULE.DR GT SCH (08:32)
[2023-07-17] MEDS: Z GUARD REMEDY 4 OZ OINT TP SCH ×2 (09:04→21:06)
[2023-07-17] MEDS ORDERED: MAGNESIUM OXIDE 400 MG TABLET NG ONE (11:30)
[2023-07-17] MEDS ORDERED: ALBUMIN 25% 25 GM in PREMIX 1 EA IV STA (12:11)
[2023-07-17] MEDS ORDERED: IV NS 0.9% 500 ML IV ONE ×2 (12:30→22:30)
[2023-07-17] MEDS ORDERED: NEUTRA PHOS 1 POWD.PACKET PO ONE (12:30)
[2023-07-17] MEDS: CEFEPIME 1 GM in IV D5W 50 ML IV SCH (12:40)
[2023-07-17] MEDS: MIDODRINE HCL (5MG) 5 MG TABLET PO SCH ×2 (12:43→16:40)
[2023-07-17] MEDS ORDERED: POTASSIUM PHOSPHATE MM 15 MMOL in IV NS 0.9% 250 ML IV SCH (13:00)
[2023-07-17] MEDS ORDERED: NOREPINEPHRINE 8 MG in IV NS 0.9% 242 ML IV PRN (15:00)
[2023-07-17] MEDS: NEPRO 1,000 ML BOTTLE GT PRN (15:04)
[2023-07-17] MEDS: NOREPINEPHRINE 8 MG in IV NS 0.9% 242 ML IV PRN (15:16)
[2023-07-17] MEDS: IV NS 0.9% 250 ML IV PRN (15:27)
[2023-07-17] MEDS ORDERED: VANCOMYCIN 1 GM in IV D5W 250 ML IV SCH (23:00)
[2023-07-18] VITALS (96 sets, daily range): BP systolic 65–132; BP diastolic 35–107; TEMP 98–102.5; O2SAT 88–100
[2023-07-18] MEDS: NOREPINEPHRINE 8 MG in IV NS 0.9% 242 ML IV PRN ×2 (04:00→12:53)
[2023-07-18] MEDS: ACETAMINOPHEN 650 MG/20.3 ML UDC GT PRN (04:38)
[2023-07-18 04:54] LABS: BASOPHILS # (AUTO) 0.1 K/uL (0.0-0.2); BASOPHILS % (AUTO) 0.4 % (0.0-2.0); EOSINOPHILS % (AUTO) 0.1 % (0.0-6.0); HEMATOCRIT 29 % (33-45); HEMOGLOBIN 9.1 g/dL (11.5-14.8); LYMPHOCYTES # (AUTO) 0.6 K/uL (0.8-4.8); LYMPHOCYTES % (AUTO) 2.9 % (20.0-44.0); MEAN CORPUSCULAR HEMOGLOBIN 29 PG (26.0-33.0); MEAN CORPUSCULAR HGB CONC 32 g/dl (31.0-36.0); MEAN CORPUSCULAR VOLUME 89 fL (82-100); MONOCYTES # (AUTO) 0.9 K/uL (0.1-1.30); MONOCYTES % (AUTO) 4.3 % (2.0-12.0); NEUTROPHILS # (AUTO) 19.6 K/uL (1.8-8.9); NEUTROPHILS % (AUTO) 92.3 % (43.0-81.0); PLATELET COUNT (AUTO) 219 K/uL (150-450); RED CELL DISTRIBUTION WIDTH 15.4 % (11.5-15.0); WHITE BLOOD COUNT (AUTO) 21.2 K/uL (4.3-11.0)
[2023-07-18 05:06] LABS: CALCIUM, SERUM 7.5 mg/dL (8.5-10.1); CARBON DIOXIDE 35 mmol/L (21-32); CHLORIDE 100 mmol/L (98-107); CREATININE 1.7 mg/dL (0.6-1.3); GLUCOSE 191 mg/dL (74-106); PHOSPHORUS 2.3 mg/dL (2.5-4.9); POTASSIUM 3.9 mmol/L (3.5-5.1); SODIUM SERUM 141 mmol/L (136-145); UREA NITROGEN, BLOOD 65 mg/dL (7-18)
[2023-07-18 05:18] LABS: MAGNESIUM 1.2 mg/dL (1.8-2.4)
[2023-07-18 05:41] LABS: BAND % (MANUAL) 4 % (0.0-5.0); LYMPHOCYTES % (MANUAL) 2 % (16-48); MONOCYTES % (MANUAL) 2 % (0-11.0); NEUTROPHILS % (MANUAL) 92 (42-76); PLATELET ESTIMATE ADEQUATE
[2023-07-18] MEDS ORDERED: Magnesium 1GM/D5W 100ML PREMIX 100 ML IV SCH (06:00)
[2023-07-18] MEDS: VIT B CMPLX 3/FA/VIT C/BIOTIN 1 TAB TABLET GT SCH (09:23)
[2023-07-18] MEDS: FERROUS SULFATE (325 MG) 325 MG/TAB TABLET GT SCH ×3 (09:24→17:04)
[2023-07-18] MEDS: PANTOPRAZOLE 40 MG/PACK PACK GT SCH (09:24)
[2023-07-18] MEDS: Magnesium 1GM/D5W 100ML PREMIX 100 ML IV SCH ×3 (09:24→14:46)
[2023-07-18] MEDS: DULOXETINE HCL 20 MG CAPSULE.DR GT SCH (09:24)
[2023-07-18] MEDS: LACTOBACILLUS RHAMNOSUS GG 1 EACH CAP.SPRINK GT SCH (09:24)
[2023-07-18] MEDS: MIDODRINE HCL (5MG) 5 MG TABLET PO SCH ×3 (09:24→17:04)
[2023-07-18] MEDS: PREGABALIN 25 MG CAPSULE GT SCH ×2 (09:24→17:04)
[2023-07-18] MEDS: CALCIUM ACETATE 667 MG CAP/TAB GT SCH ×3 (09:24→17:04)
[2023-07-18] MEDS: LEVOTHYROXINE SODIUM 50 MCG TABLET GT SCH (09:25)
[2023-07-18] MEDS: Z GUARD REMEDY 4 OZ OINT TP SCH ×2 (09:25→21:15)
[2023-07-18] MEDS: CALCIUM CARB 600MG /VIT D 1 EACH TABLET GT SCH (09:25)
[2023-07-18] MEDS: PROSOURCE / PROSTAT (PYXIS) 30 ML UDC GT SCH ×3 (09:26→17:05)
[2023-07-18] MEDS ORDERED: AMIODARONE 150 MG in IV D5W 100 ML IV ONE (09:30)
[2023-07-18] MEDS ORDERED: AMIODARONE 450 MG in IV D5W 250 ML IV PRN (09:30)
[2023-07-18] MEDS: HYDROCORTISONE SOD SUCCINATE 100 MG/2 ML VIAL IV SCH ×3 (09:33→21:15)
[2023-07-18 10:33] LABS: ABG BASE EXCESS 8.8 mmol/L; ABG OXYGEN SATURATION 94.7 % (92.0-98.5); ABG PCO2 39.2 mmHg (35.0-45.0); ABG PH 7.531 (7.350-7.450); ABG PO2 70.8 mmHg (75.0-100.0); COHb 0.2 % (0.5-1.5); MetHb 0.1 % (0.0-1.5); O2Hb 94.4 % (94.0-97.0); SITE, ABG Right Radial; VENT MODE, BG room air
[2023-07-18] MEDS ORDERED: VANCOMYCIN 1 GM in IV D5W 250 ML IV SCH (11:00)
[2023-07-18] MEDS ORDERED: MAGNESIUM OXIDE 400 MG TABLET GT ONE (12:00)
[2023-07-18] MEDS: AMIODARONE 450 MG in IV D5W 241 ML IV PRN ×2 (12:01→18:56)
[2023-07-18] MEDS: IV D5/ 0.9% NACL 1,000 ML IV PRN (12:22)
[2023-07-18] MEDS: CEFEPIME 1 GM in IV D5W 50 ML IV SCH (12:35)
[2023-07-18] MEDS: IV NS 0.9% 250 ML IV PRN (13:37)
[2023-07-18] MEDS ORDERED: PHENYLEPHRINE 50 MG in IV NS 0.9% 245 ML IV PRN (14:00)
[2023-07-18] MEDS ORDERED: POTASSIUM PHOSPHATE MM 15 MMOL in IV NS 0.9% 250 ML IV SCH (14:00)
[2023-07-18] MEDS ORDERED: MEROPENEM 1 G in IV NS 0.9% 100 ML IV SCH (14:30)
[2023-07-18] MEDS: MEROPENEM 500 MG in IV NS 0.9% 50 ML IV SCH ×2 (15:32→21:01)
[2023-07-18] MEDS: NEPRO 1,000 ML BOTTLE GT PRN (15:39)
[2023-07-18] MEDS ORDERED: Sodium Phosphate 15 MMOL in IV NS 0.9% 245 ML IV SCH (16:00)
[2023-07-18] MEDS ORDERED: PHENYLEPHRINE 100 MG in IV NS 0.9% 240 ML IV PRN (20:30)
[2023-07-18] MEDS: PHENYLEPHRINE 100 MG in IV NS 0.9% 240 ML IV PRN (22:35)
[2023-07-19] VITALS (97 sets, daily range): BP systolic 86–120; BP diastolic 51–86; TEMP 97.3–98; O2SAT 98–100
[2023-07-19] MEDS: IV D5/ 0.9% NACL 1,000 ML IV PRN ×2 (01:21→13:18)
[2023-07-19 04:18] LABS: BASOPHILS % (AUTO) 0.2 % (0.0-2.0); EOSINOPHILS % (AUTO) 0.1 % (0.0-6.0); HEMATOCRIT 29 % (33-45); HEMOGLOBIN 9.2 g/dL (11.5-14.8); LYMPHOCYTES # (AUTO) 0.7 K/uL (0.8-4.8); LYMPHOCYTES % (AUTO) 2.2 % (20.0-44.0); MEAN CORPUSCULAR HEMOGLOBIN 28 PG (26.0-33.0); MEAN CORPUSCULAR HGB CONC 32 g/dl (31.0-36.0); MEAN CORPUSCULAR VOLUME 90 fL (82-100); MONOCYTES # (AUTO) 1.1 K/uL (0.1-1.30); MONOCYTES % (AUTO) 3.7 % (2.0-12.0); NEUTROPHILS # (AUTO) 28.7 K/uL (1.8-8.9); NEUTROPHILS % (AUTO) 93.8 % (43.0-81.0); PLATELET COUNT (AUTO) 175 K/uL (150-450); RED BLOOD CELL COUNT(AUTO) 3.23 MIL/uL (4.0-5.2); RED CELL DISTRIBUTION WIDTH 15.7 % (11.5-15.0)
[2023-07-19 04:27] LABS: CALCIUM, SERUM 7.5 mg/dL (8.5-10.1); CARBON DIOXIDE 32 mmol/L (21-32); CHLORIDE 100 mmol/L (98-107); CREATININE 1.6 mg/dL (0.6-1.3); GLUCOSE 211 mg/dL (74-106); MAGNESIUM 2.1 mg/dL (1.8-2.4); PHOSPHORUS 3.1 mg/dL (2.5-4.9); SODIUM SERUM 140 mmol/L (136-145); UREA NITROGEN, BLOOD 66 mg/dL (7-18)
[2023-07-19 04:32] LABS: WHITE BLOOD COUNT (AUTO) 30.6 K/uL (4.3-11.0)
[2023-07-19] MEDS: HYDROCORTISONE SOD SUCCINATE 100 MG/2 ML VIAL IV SCH ×3 (04:55→20:29)
[2023-07-19 05:06] LABS: BAND % (MANUAL) 2 % (0.0-5.0); LYMPHOCYTES % (MANUAL) 2 % (16-48); MONOCYTES % (MANUAL) 3 % (0-11.0); NEUTROPHILS % (MANUAL) 93 (42-76)
[2023-07-19 05:07] LABS: PLATELET ESTIMATE ADEQUATE
[2023-07-19] MEDS: PROSOURCE / PROSTAT (PYXIS) 30 ML UDC GT SCH ×2 (08:33→17:28)
[2023-07-19] MEDS: MIDODRINE HCL (5MG) 5 MG TABLET PO SCH ×3 (08:35→17:28)
[2023-07-19] MEDS: PREGABALIN 25 MG CAPSULE GT SCH ×2 (08:35→17:28)
[2023-07-19] MEDS: DULOXETINE HCL 20 MG CAPSULE.DR GT SCH (08:35)
[2023-07-19] MEDS: VIT B CMPLX 3/FA/VIT C/BIOTIN 1 TAB TABLET GT SCH (08:35)
[2023-07-19] MEDS: CALCIUM CARB 600MG /VIT D 1 EACH TABLET GT SCH (08:35)
[2023-07-19] MEDS: FERROUS SULFATE (325 MG) 325 MG/TAB TABLET GT SCH ×3 (08:36→17:27)
[2023-07-19] MEDS: CALCIUM ACETATE 667 MG CAP/TAB GT SCH ×3 (08:36→17:27)
[2023-07-19] MEDS: PANTOPRAZOLE 40 MG/PACK PACK GT SCH (08:36)
[2023-07-19] MEDS: LACTOBACILLUS RHAMNOSUS GG 1 EACH CAP.SPRINK GT SCH (08:36)
[2023-07-19] MEDS: LEVOTHYROXINE SODIUM 50 MCG TABLET GT SCH (08:36)
[2023-07-19] MEDS: Z GUARD REMEDY 4 OZ OINT TP SCH ×2 (08:39→20:30)
[2023-07-19] MEDS: MEROPENEM 500 MG in IV NS 0.9% 50 ML IV SCH ×2 (08:39→20:30)
[2023-07-19] MEDS ORDERED: HYDROCORTISONE SOD SUCCINATE 100 MG/2 ML VIAL IV SCH (10:00)
[2023-07-19] MEDS: AMIODARONE HCL 200 MG TABLET PO SCH ×3 (10:49→18:37)
[2023-07-19] MEDS: PHENYLEPHRINE 100 MG in IV NS 0.9% 240 ML IV PRN ×2 (10:49→23:24)
[2023-07-19] MEDS ORDERED: POTASSIUM CHLORIDE 20 MEQ TAB.PRT.SR PO SCH (11:00)
[2023-07-19] MEDS: POTASSIUM CHLORIDE 20 MEQ POWDER PACKET GT SCH ×3 (11:58→13:56)
[2023-07-19] MEDS: IV NS 0.9% 250 ML IV PRN (13:18)
[2023-07-19] MEDS: NEPRO 1,000 ML BOTTLE GT PRN (13:20)
[2023-07-19] MEDS: VANCOMYCIN 1 GM in IV D5W 250 ML IV SCH (23:02)
[2023-07-20] VITALS (90 sets, daily range): BP systolic 92–149; BP diastolic 39–102; TEMP 96.2–97.9; O2SAT 95–100
[2023-07-20] MEDS: HYDROCORTISONE SOD SUCCINATE 100 MG/2 ML VIAL IV SCH ×3 (04:40→21:00)
[2023-07-20] MEDS: AMIODARONE HCL 200 MG TABLET PO SCH ×3 (04:45→19:37)
[2023-07-20 05:07] LABS: HEMATOCRIT 27 % (33-45); HEMOGLOBIN 8.6 g/dL (11.5-14.8); LYMPHOCYTES # (AUTO) 0.9 K/uL (0.8-4.8); LYMPHOCYTES % (AUTO) 3.3 % (20.0-44.0); MEAN CORPUSCULAR HEMOGLOBIN 28 PG (26.0-33.0); MEAN CORPUSCULAR HGB CONC 32 g/dl (31.0-36.0); MEAN CORPUSCULAR VOLUME 90 fL (82-100); MONOCYTES # (AUTO) 1.5 K/uL (0.1-1.30); MONOCYTES % (AUTO) 5.7 % (2.0-12.0); NEUTROPHILS # (AUTO) 24.7 K/uL (1.8-8.9); PLATELET COUNT (AUTO) 209 K/uL (150-450); RED BLOOD CELL COUNT(AUTO) 3.04 MIL/uL (4.0-5.2); RED CELL DISTRIBUTION WIDTH 15.7 % (11.5-15.0); WHITE BLOOD COUNT (AUTO) 27.1 K/uL (4.3-11.0)
[2023-07-20 05:26] LABS: CALCIUM, SERUM 7.6 mg/dL (8.5-10.1); CARBON DIOXIDE 33 mmol/L (21-32); CHLORIDE 105 mmol/L (98-107); CREATININE 1.6 mg/dL (0.6-1.3); GLUCOSE 161 mg/dL (74-106); PHOSPHORUS 2.7 mg/dL (2.5-4.9); POTASSIUM 3.6 mmol/L (3.5-5.1); SODIUM SERUM 143 mmol/L (136-145); UREA NITROGEN, BLOOD 65 mg/dL (7-18)
[2023-07-20] MEDS: IV D5/ 0.9% NACL 1,000 ML IV PRN ×2 (06:59→17:14)
[2023-07-20] MEDS: PANTOPRAZOLE 40 MG/PACK PACK GT SCH (09:11)
[2023-07-20] MEDS: PREGABALIN 25 MG CAPSULE GT SCH ×2 (09:11→17:13)
[2023-07-20] MEDS: CALCIUM ACETATE 667 MG CAP/TAB GT SCH ×3 (09:11→17:13)
[2023-07-20] MEDS: DULOXETINE HCL 20 MG CAPSULE.DR GT SCH (09:11)
[2023-07-20] MEDS: LACTOBACILLUS RHAMNOSUS GG 1 EACH CAP.SPRINK GT SCH (09:11)
[2023-07-20] MEDS: MEROPENEM 500 MG in IV NS 0.9% 50 ML IV SCH ×2 (09:11→21:00)
[2023-07-20] MEDS: FERROUS SULFATE (325 MG) 325 MG/TAB TABLET GT SCH ×3 (09:12→17:12)
[2023-07-20] MEDS: VIT B CMPLX 3/FA/VIT C/BIOTIN 1 TAB TABLET GT SCH (09:12)
[2023-07-20] MEDS: MIDODRINE HCL (5MG) 5 MG TABLET PO SCH ×3 (09:12→17:13)
[2023-07-20] MEDS: LEVOTHYROXINE SODIUM 50 MCG TABLET GT SCH (09:13)
[2023-07-20] MEDS: Z GUARD REMEDY 4 OZ OINT TP SCH ×2 (09:13→20:57)
[2023-07-20] MEDS: CALCIUM CARB 600MG /VIT D 1 EACH TABLET GT SCH (09:13)
[2023-07-20] MEDS: PROSOURCE / PROSTAT (PYXIS) 30 ML UDC GT SCH ×2 (09:19→17:13)
[2023-07-20 11:06] LABS: ANISOCYTOSIS 1+; LYMPHOCYTES % (MANUAL) 4 % (16-48); MONOCYTES % (MANUAL) 4 % (0-11.0); NEUTROPHILS % (MANUAL) 92 (42-76); PLATELET ESTIMATE ADEQUATE
[2023-07-20] MEDS: PHENYLEPHRINE 100 MG in IV NS 0.9% 240 ML IV PRN (14:48)
[2023-07-20] MEDS: NEPRO 1,000 ML BOTTLE GT PRN (17:14)
[2023-07-20] MEDS: IV NS 0.9% 250 ML IV PRN (17:15)
[2023-07-21] VITALS (68 sets, daily range): BP systolic 91–135; BP diastolic 50–97; TEMP 96.3–97.9; O2SAT 92–100
[2023-07-21] MEDS: AMIODARONE HCL 200 MG TABLET PO SCH ×3 (03:10→18:18)
[2023-07-21] MEDS: HYDROCORTISONE SOD SUCCINATE 100 MG/2 ML VIAL IV SCH ×3 (04:46→21:00)
[2023-07-21 05:24] LABS: BASOPHILS % (AUTO) 0.1 % (0.0-2.0); HEMATOCRIT 27 % (33-45); HEMOGLOBIN 8.6 g/dL (11.5-14.8); LYMPHOCYTES # (AUTO) 0.7 K/uL (0.8-4.8); LYMPHOCYTES % (AUTO) 5.9 % (20.0-44.0); MEAN CORPUSCULAR HEMOGLOBIN 29 PG (26.0-33.0); MEAN CORPUSCULAR HGB CONC 31 g/dl (31.0-36.0); MEAN CORPUSCULAR VOLUME 92 fL (82-100); MONOCYTES # (AUTO) 0.6 K/uL (0.1-1.30); MONOCYTES % (AUTO) 5.7 % (2.0-12.0); NEUTROPHILS # (AUTO) 9.9 K/uL (1.8-8.9); NEUTROPHILS % (AUTO) 88.3 % (43.0-81.0); PLATELET COUNT (AUTO) 150 K/uL (150-450); RED BLOOD CELL COUNT(AUTO) 2.96 MIL/uL (4.0-5.2); RED CELL DISTRIBUTION WIDTH 16.2 % (11.5-15.0); WHITE BLOOD COUNT (AUTO) 11.2 K/uL (4.3-11.0)
[2023-07-21 05:36] LABS: CALCIUM, SERUM 7.5 mg/dL (8.5-10.1); CARBON DIOXIDE 28 mmol/L (21-32); CHLORIDE 108 mmol/L (98-107); CREATININE 1.5 mg/dL (0.6-1.3); GLUCOSE 144 mg/dL (74-106); PHOSPHORUS 2.1 mg/dL (2.5-4.9); POTASSIUM 3.9 mmol/L (3.5-5.1); SODIUM SERUM 145 mmol/L (136-145); UREA NITROGEN, BLOOD 67 mg/dL (7-18)
[2023-07-21] MEDS: IV D5/ 0.9% NACL 1,000 ML IV PRN ×2 (06:03→19:49)
[2023-07-21] MEDS: PANTOPRAZOLE 40 MG/PACK PACK GT SCH (08:09)
[2023-07-21] MEDS: CALCIUM CARB 600MG /VIT D 1 EACH TABLET GT SCH (08:10)
[2023-07-21] MEDS: LACTOBACILLUS RHAMNOSUS GG 1 EACH CAP.SPRINK GT SCH (08:10)
[2023-07-21] MEDS: VIT B CMPLX 3/FA/VIT C/BIOTIN 1 TAB TABLET GT SCH (08:10)
[2023-07-21] MEDS: DULOXETINE HCL 20 MG CAPSULE.DR GT SCH (08:10)
[2023-07-21] MEDS: LEVOTHYROXINE SODIUM 50 MCG TABLET GT SCH (08:10)
[2023-07-21] MEDS: PROSOURCE / PROSTAT (PYXIS) 30 ML UDC GT SCH ×2 (08:14→16:27)
[2023-07-21] MEDS: PREGABALIN 25 MG CAPSULE GT SCH ×2 (08:14→21:00)
[2023-07-21] MEDS: CALCIUM ACETATE 667 MG CAP/TAB GT SCH ×2 (08:14→16:27)
[2023-07-21] MEDS: MIDODRINE HCL (5MG) 5 MG TABLET PO SCH ×2 (08:15→16:25)
[2023-07-21] MEDS: Z GUARD REMEDY 4 OZ OINT TP SCH ×2 (08:16→21:01)
[2023-07-21] MEDS: FERROUS SULFATE (325 MG) 325 MG/TAB TABLET GT SCH ×2 (08:16→16:25)
[2023-07-21] MEDS: MEROPENEM 500 MG in IV NS 0.9% 50 ML IV SCH ×2 (08:27→21:00)
[2023-07-21] MEDS ORDERED: NEUTRA PHOS 1 POWD.PACKET NG ONE (17:00)
[2023-07-21] MEDS: IV NS 0.9% 250 ML IV PRN (21:17)
[2023-07-22] VITALS (22 sets, daily range): BP systolic 98–123; BP diastolic 53–98; TEMP 96.1–98.2; O2SAT 94–100
[2023-07-22] MEDS: CALCIUM ACETATE 667 MG CAP/TAB GT SCH ×3 (01:16→16:43)
[2023-07-22] MEDS: MIDODRINE HCL (5MG) 5 MG TABLET PO SCH ×3 (01:16→16:43)
[2023-07-22] MEDS: FERROUS SULFATE (325 MG) 325 MG/TAB TABLET GT SCH ×3 (01:16→16:43)
[2023-07-22] MEDS: AMIODARONE HCL 200 MG TABLET PO SCH ×3 (02:47→20:02)
[2023-07-22 05:09] LABS: CALCIUM, SERUM 7.8 mg/dL (8.5-10.1); CARBON DIOXIDE 28 mmol/L (21-32); CHLORIDE 112 mmol/L (98-107); CREATININE 1.5 mg/dL (0.6-1.3); GLUCOSE 119 mg/dL (74-106); POTASSIUM 3.6 mmol/L (3.5-5.1); SODIUM SERUM 147 mmol/L (136-145); UREA NITROGEN, BLOOD 67 mg/dL (7-18)
[2023-07-22] MEDS: HYDROCORTISONE SOD SUCCINATE 100 MG/2 ML VIAL IV SCH ×3 (05:20→20:49)
[2023-07-22] MEDS: NEPRO 1,000 ML BOTTLE GT PRN (07:39)
[2023-07-22] MEDS: IV D5/ 0.9% NACL 1,000 ML IV PRN (07:41)
[2023-07-22] MEDS: IV NS 0.9% 250 ML IV PRN (07:41)
[2023-07-22] MEDS: PROSOURCE / PROSTAT (PYXIS) 30 ML UDC GT SCH ×2 (08:02→16:43)
[2023-07-22] MEDS: MEROPENEM 500 MG in IV NS 0.9% 50 ML IV SCH ×2 (08:02→20:49)
[2023-07-22] MEDS: PREGABALIN 25 MG CAPSULE GT SCH ×2 (08:02→20:02)
[2023-07-22] MEDS: LEVOTHYROXINE SODIUM 50 MCG TABLET GT SCH (08:02)
[2023-07-22] MEDS: PANTOPRAZOLE 40 MG/PACK PACK GT SCH (08:02)
[2023-07-22] MEDS: Z GUARD REMEDY 4 OZ OINT TP SCH ×2 (08:03→21:02)
[2023-07-22] MEDS: LACTOBACILLUS RHAMNOSUS GG 1 EACH CAP.SPRINK GT SCH (08:04)
[2023-07-22] MEDS: DULOXETINE HCL 20 MG CAPSULE.DR GT SCH (08:04)
[2023-07-22] MEDS: VIT B CMPLX 3/FA/VIT C/BIOTIN 1 TAB TABLET GT SCH (08:04)
[2023-07-22] MEDS: CALCIUM CARB 600MG /VIT D 1 EACH TABLET GT SCH (08:05)
[2023-07-22] MEDS: VANCOMYCIN 1 GM in IV D5W 250 ML IV SCH (23:15)
[2023-07-23 00:05] VITALS: BP 115/65; TEMP 98; O2SAT 100
[2023-07-23] MEDS: MIDODRINE HCL (5MG) 5 MG TABLET PO SCH ×3 (01:00→16:37)
[2023-07-23] MEDS: FERROUS SULFATE (325 MG) 325 MG/TAB TABLET GT SCH ×3 (01:00→16:37)
[2023-07-23] MEDS: CALCIUM ACETATE 667 MG CAP/TAB GT SCH ×3 (01:00→16:37)
[2023-07-23] MEDS: AMIODARONE HCL 200 MG TABLET PO SCH ×3 (03:00→18:57)
[2023-07-23 04:00] VITALS: BP 112/65; TEMP 97.8; O2SAT 98
[2023-07-23] MEDS: HYDROCORTISONE SOD SUCCINATE 100 MG/2 ML VIAL IV SCH (04:42)
[2023-07-23 07:24] LABS: CALCIUM, SERUM 7.3 mg/dL (8.5-10.1); CARBON DIOXIDE 25 mmol/L (21-32); CHLORIDE 115 mmol/L (98-107); CREATININE 1.4 mg/dL (0.6-1.3); GLUCOSE 113 mg/dL (74-106); POTASSIUM 3.4 mmol/L (3.5-5.1); SODIUM SERUM 146 mmol/L (136-145)
[2023-07-23 07:57] LABS: UREA NITROGEN, BLOOD 81 mg/dL (7-18)
[2023-07-23 08:00] VITALS: BP 107/80; TEMP 97.5; O2SAT 98
[2023-07-23] MEDS: PROSOURCE / PROSTAT (PYXIS) 30 ML UDC GT SCH ×2 (08:00→16:37)
[2023-07-23] MEDS: PREGABALIN 25 MG CAPSULE GT SCH ×2 (08:09→21:43)
[2023-07-23] MEDS: CALCIUM CARB 600MG /VIT D 1 EACH TABLET GT SCH (08:09)
[2023-07-23] MEDS: PANTOPRAZOLE 40 MG/PACK PACK GT SCH (08:09)
[2023-07-23] MEDS: VIT B CMPLX 3/FA/VIT C/BIOTIN 1 TAB TABLET GT SCH (08:09)
[2023-07-23] MEDS: LEVOTHYROXINE SODIUM 50 MCG TABLET GT SCH (08:09)
[2023-07-23] MEDS: DULOXETINE HCL 20 MG CAPSULE.DR GT SCH (08:09)
[2023-07-23] MEDS: LACTOBACILLUS RHAMNOSUS GG 1 EACH CAP.SPRINK GT SCH (08:10)
[2023-07-23] MEDS: Z GUARD REMEDY 4 OZ OINT TP SCH ×2 (08:12→21:44)
[2023-07-23] MEDS: MEROPENEM 500 MG in IV NS 0.9% 50 ML IV SCH ×2 (08:16→21:43)
[2023-07-23] MEDS ORDERED: POTASSIUM CHLORIDE 20 MEQ POWDER PACKET NG SCH (11:00)
[2023-07-23 12:00] VITALS: BP 99/64; TEMP 97.5; O2SAT 100
[2023-07-23 16:00] VITALS: BP 103/64; TEMP 97.2; O2SAT 99
[2023-07-23] MEDS: LINEZOLID RTU BAG 600 MG in PREMIX 1 EA IV SCH (16:42)
[2023-07-23 20:00] VITALS: BP 143/81; TEMP 97.2; O2SAT 97
[2023-07-23] MEDS: methylPREDNISolone SOD SUCC 40 MG/ML VIAL IV SCH (21:43)
[2023-07-24] VITALS: BP 150/75; TEMP 97.8; O2SAT 96
[2023-07-24] MEDS: MIDODRINE HCL (5MG) 5 MG TABLET PO SCH ×3 (00:55→16:35)
[2023-07-24] MEDS: CALCIUM ACETATE 667 MG CAP/TAB GT SCH ×3 (01:25→16:35)
[2023-07-24] MEDS: FERROUS SULFATE (325 MG) 325 MG/TAB TABLET GT SCH ×3 (01:25→16:36)
[2023-07-24 04:00] VITALS: BP 139/99; TEMP 97.8; O2SAT 100
[2023-07-24] MEDS: AMIODARONE HCL 200 MG TABLET PO SCH ×3 (04:01→18:09)
[2023-07-24] MEDS: methylPREDNISolone SOD SUCC 40 MG/ML VIAL IV SCH ×3 (05:43→20:27)
[2023-07-24] MEDS: LINEZOLID RTU BAG 600 MG in PREMIX 1 EA IV SCH ×2 (05:48→16:40)
[2023-07-24 07:05] LABS: BASOPHILS % (AUTO) 0.1 % (0.0-2.0); HEMATOCRIT 33 % (33-45); HEMOGLOBIN 10.5 g/dL (11.5-14.8); LYMPHOCYTES # (AUTO) 0.7 K/uL (0.8-4.8); MEAN CORPUSCULAR HEMOGLOBIN 30 PG (26.0-33.0); MEAN CORPUSCULAR HGB CONC 32 g/dl (31.0-36.0); MEAN CORPUSCULAR VOLUME 93 fL (82-100); MONOCYTES # (AUTO) 0.3 K/uL (0.1-1.30); MONOCYTES % (AUTO) 2.7 % (2.0-12.0); NEUTROPHILS # (AUTO) 9.6 K/uL (1.8-8.9); NEUTROPHILS % (AUTO) 90.2 % (43.0-81.0); PLATELET COUNT (AUTO) 297 K/uL (150-450); RED BLOOD CELL COUNT(AUTO) 3.57 MIL/uL (4.0-5.2); RED CELL DISTRIBUTION WIDTH 16.1 % (11.5-15.0); WHITE BLOOD COUNT (AUTO) 10.6 K/uL (4.3-11.0)
[2023-07-24 07:24] LABS: MAGNESIUM 1.9 mg/dL (1.8-2.4); PHOSPHORUS 3.5 mg/dL (2.5-4.9)
[2023-07-24] MEDS: IV D5W 1,000 ML IV PRN (07:26)
[2023-07-24] MEDS: PANTOPRAZOLE 40 MG/PACK PACK GT SCH (07:37)
[2023-07-24] MEDS: LEVOTHYROXINE SODIUM 50 MCG TABLET GT SCH (07:37)
[2023-07-24 08:00] VITALS: BP 133/96; TEMP 97.9; O2SAT 100
[2023-07-24] MEDS: PROSOURCE / PROSTAT (PYXIS) 30 ML UDC GT SCH ×2 (08:01→16:37)
[2023-07-24 08:22] LABS: LYMPHOCYTES % (MANUAL) 5 % (16-48); MONOCYTES % (MANUAL) 2 % (0-11.0); MYELOCYTES % 2 % (0-0); NEUTROPHILS % (MANUAL) 91 (42-76); PLATELET ESTIMATE ADEQUATE
[2023-07-24] MEDS: PREGABALIN 25 MG CAPSULE GT SCH ×2 (08:34→20:27)
[2023-07-24] MEDS: CALCIUM CARB 600MG /VIT D 1 EACH TABLET GT SCH (08:39)
[2023-07-24] MEDS: MEROPENEM 500 MG in IV NS 0.9% 50 ML IV SCH ×2 (08:39→20:26)
[2023-07-24] MEDS: VIT B CMPLX 3/FA/VIT C/BIOTIN 1 TAB TABLET GT SCH (08:40)
[2023-07-24] MEDS: DULOXETINE HCL 20 MG CAPSULE.DR GT SCH (08:40)
[2023-07-24] MEDS: LACTOBACILLUS RHAMNOSUS GG 1 EACH CAP.SPRINK GT SCH (08:40)
[2023-07-24] MEDS: Z GUARD REMEDY 4 OZ OINT TP SCH ×2 (08:41→20:27)
[2023-07-24] MEDS: NEPRO 1,000 ML BOTTLE GT PRN (09:43)
[2023-07-24 12:00] VITALS: BP 118/80; TEMP 97.4; O2SAT 100
[2023-07-24 16:00] VITALS: BP 120/76; TEMP 98.2; O2SAT 100
[2023-07-24 20:00] VITALS: BP 102/54; TEMP 97.5; O2SAT 98
[2023-07-25] VITALS: BP 110/83; TEMP 98.1; O2SAT 92
[2023-07-25] MEDS: CALCIUM ACETATE 667 MG CAP/TAB GT SCH ×3 (00:31→16:01)
[2023-07-25] MEDS: FERROUS SULFATE (325 MG) 325 MG/TAB TABLET GT SCH ×3 (00:32→16:01)
[2023-07-25] MEDS: MIDODRINE HCL (5MG) 5 MG TABLET PO SCH ×2 (00:32→08:29)
[2023-07-25] MEDS: AMIODARONE HCL 200 MG TABLET PO SCH (02:48)
[2023-07-25 04:00] VITALS: BP 120/63; TEMP 97.2; O2SAT 95
[2023-07-25] MEDS: LINEZOLID RTU BAG 600 MG in PREMIX 1 EA IV SCH ×2 (04:48→16:23)
[2023-07-25] MEDS: methylPREDNISolone SOD SUCC 40 MG/ML VIAL IV SCH ×3 (04:49→20:39)
[2023-07-25] MEDS: IV D5W 1,000 ML IV PRN ×2 (05:02→23:10)
[2023-07-25 06:07] LABS: BASOPHILS % (AUTO) 0.1 % (0.0-2.0); HEMATOCRIT 32 % (33-45); HEMOGLOBIN 10.3 g/dL (11.5-14.8); LYMPHOCYTES # (AUTO) 0.5 K/uL (0.8-4.8); MEAN CORPUSCULAR HEMOGLOBIN 29 PG (26.0-33.0); MEAN CORPUSCULAR HGB CONC 32 g/dl (31.0-36.0); MEAN CORPUSCULAR VOLUME 91 fL (82-100); MONOCYTES # (AUTO) 0.4 K/uL (0.1-1.30); MONOCYTES % (AUTO) 3.4 % (2.0-12.0); NEUTROPHILS # (AUTO) 11.8 K/uL (1.8-8.9); NEUTROPHILS % (AUTO) 92.5 % (43.0-81.0); PLATELET COUNT (AUTO) 370 K/uL (150-450); RED BLOOD CELL COUNT(AUTO) 3.55 MIL/uL (4.0-5.2); RED CELL DISTRIBUTION WIDTH 15.7 % (11.5-15.0); WHITE BLOOD COUNT (AUTO) 12.8 K/uL (4.3-11.0)
[2023-07-25 06:32] LABS: CARBON DIOXIDE 26 mmol/L (21-32); CHLORIDE 111 mmol/L (98-107); CREATININE 1.5 mg/dL (0.6-1.3); GLUCOSE 153 mg/dL (74-106); MAGNESIUM 1.8 mg/dL (1.8-2.4); PHOSPHORUS 4.1 mg/dL (2.5-4.9); POTASSIUM 3.9 mmol/L (3.5-5.1); SODIUM SERUM 149 mmol/L (136-145)
[2023-07-25 06:39] LABS: UREA NITROGEN, BLOOD 83 mg/dL (7-18)
[2023-07-25 08:00] VITALS: BP 135/65; TEMP 97.1; O2SAT 100
[2023-07-25] MEDS: LEVOTHYROXINE SODIUM 50 MCG TABLET GT SCH (08:26)
[2023-07-25] MEDS: DULOXETINE HCL 20 MG CAPSULE.DR GT SCH (08:26)
[2023-07-25] MEDS: VIT B CMPLX 3/FA/VIT C/BIOTIN 1 TAB TABLET GT SCH (08:26)
[2023-07-25] MEDS: PREGABALIN 25 MG CAPSULE GT SCH ×2 (08:26→20:14)
[2023-07-25] MEDS: CALCIUM CARB 600MG /VIT D 1 EACH TABLET GT SCH (08:26)
[2023-07-25] MEDS: LACTOBACILLUS RHAMNOSUS GG 1 EACH CAP.SPRINK GT SCH (08:26)
[2023-07-25] MEDS: PANTOPRAZOLE 40 MG/PACK PACK GT SCH (08:28)
[2023-07-25] MEDS: MEROPENEM 500 MG in IV NS 0.9% 50 ML IV SCH ×2 (08:29→20:39)
[2023-07-25] MEDS: PROSOURCE / PROSTAT (PYXIS) 30 ML UDC GT SCH ×2 (08:33→16:01)
[2023-07-25] MEDS: Z GUARD REMEDY 4 OZ OINT TP SCH ×2 (08:34→20:41)
[2023-07-25] MEDS: AMIODARONE HCL 200 MG TABLET GT SCH ×2 (11:44→20:14)
[2023-07-25] MEDS: MIDODRINE HCL (5MG) 5 MG TABLET GT SCH ×2 (11:47→20:14)
[2023-07-25 12:00] VITALS: BP 134/81; TEMP 96; O2SAT 100
[2023-07-25 16:00] VITALS: BP 115/93; TEMP 96.9; O2SAT 100
[2023-07-25 20:00] VITALS: BP 123/83; TEMP 97.9; O2SAT 100
[2023-07-25] MEDS: ENOXAPARIN SODIUM 100 MG/ML DISP.SYRIN SQ SCH (20:40)
[2023-07-25] MEDS: NEPRO 1,000 ML BOTTLE GT PRN (21:08)
[2023-07-26] VITALS: BP 136/88; TEMP 97.9; O2SAT 100
[2023-07-26] MEDS: CALCIUM ACETATE 667 MG CAP/TAB GT SCH ×3 (01:16→17:53)
[2023-07-26] MEDS: FERROUS SULFATE (325 MG) 325 MG/TAB TABLET GT SCH ×3 (01:17→17:53)
[2023-07-26] MEDS ORDERED: NEPRO 1,000 ML BOTTLE GT PRN (03:30)
[2023-07-26] MEDS: MIDODRINE HCL (5MG) 5 MG TABLET GT SCH ×3 (03:55→20:19)
[2023-07-26] MEDS: AMIODARONE HCL 200 MG TABLET GT SCH ×3 (03:57→20:18)
[2023-07-26 04:00] VITALS: BP 135/84; TEMP 98.6; O2SAT 99
[2023-07-26] MEDS: methylPREDNISolone SOD SUCC 40 MG/ML VIAL IV SCH ×3 (04:03→22:00)
[2023-07-26] MEDS: LINEZOLID RTU BAG 600 MG in PREMIX 1 EA IV SCH (04:04)
[2023-07-26 06:05] LABS: CALCIUM, SERUM 8.6 mg/dL (8.5-10.1); CARBON DIOXIDE 25 mmol/L (21-32); CHLORIDE 105 mmol/L (98-107); CREATININE 1.5 mg/dL (0.6-1.3); GLUCOSE 183 mg/dL (74-106); MAGNESIUM 1.5 mg/dL (1.8-2.4); PHOSPHORUS 3.5 mg/dL (2.5-4.9); POTASSIUM 3.7 mmol/L (3.5-5.1); SODIUM SERUM 140 mmol/L (136-145)
[2023-07-26 06:15] LABS: BASOPHILS # (AUTO) 0.1 K/uL (0.0-0.2); BASOPHILS % (AUTO) 0.3 % (0.0-2.0); HEMATOCRIT 30 % (33-45); HEMOGLOBIN 9.6 g/dL (11.5-14.8); LYMPHOCYTES # (AUTO) 0.5 K/uL (0.8-4.8); LYMPHOCYTES % (AUTO) 2.5 % (20.0-44.0); MEAN CORPUSCULAR HEMOGLOBIN 29 PG (26.0-33.0); MEAN CORPUSCULAR HGB CONC 32 g/dl (31.0-36.0); MEAN CORPUSCULAR VOLUME 91 fL (82-100); MONOCYTES # (AUTO) 0.5 K/uL (0.1-1.30); MONOCYTES % (AUTO) 2.5 % (2.0-12.0); NEUTROPHILS # (AUTO) 19.4 K/uL (1.8-8.9); NEUTROPHILS % (AUTO) 94.7 % (43.0-81.0); PLATELET COUNT (AUTO) 440 K/uL (150-450); RED BLOOD CELL COUNT(AUTO) 3.29 MIL/uL (4.0-5.2); RED CELL DISTRIBUTION WIDTH 15.8 % (11.5-15.0); WHITE BLOOD COUNT (AUTO) 20.5 K/uL (4.3-11.0)
[2023-07-26 07:07] LABS: UREA NITROGEN, BLOOD 86 mg/dL (7-18)
[2023-07-26] MEDS: PROSOURCE / PROSTAT (PYXIS) 30 ML UDC GT SCH ×2 (07:45→17:50)
[2023-07-26] MEDS: LEVOTHYROXINE SODIUM 50 MCG TABLET GT SCH (07:49)
[2023-07-26] MEDS: PANTOPRAZOLE 40 MG/PACK PACK GT SCH (07:49)
[2023-07-26 08:00] VITALS: BP 135/84; TEMP 98.1; O2SAT 99
[2023-07-26] MEDS: LACTOBACILLUS RHAMNOSUS GG 1 EACH CAP.SPRINK GT SCH (09:46)
[2023-07-26] MEDS: CALCIUM CARB 600MG /VIT D 1 EACH TABLET GT SCH (09:46)
[2023-07-26] MEDS: DULOXETINE HCL 20 MG CAPSULE.DR GT SCH (09:46)
[2023-07-26] MEDS: VIT B CMPLX 3/FA/VIT C/BIOTIN 1 TAB TABLET GT SCH (09:46)
[2023-07-26] MEDS: Z GUARD REMEDY 4 OZ OINT TP SCH ×2 (09:47→22:08)
[2023-07-26] MEDS: PREGABALIN 25 MG CAPSULE GT SCH ×2 (09:52→22:00)
[2023-07-26] MEDS: MEROPENEM 500 MG in IV NS 0.9% 50 ML IV SCH (09:53)
[2023-07-26 12:00] VITALS: BP 148/89; TEMP 98.1; O2SAT 99
[2023-07-26] MEDS ORDERED: MAGNESIUM OXIDE 400 MG TABLET PO ONE (12:00)
[2023-07-26] MEDS: DAKINS QUARTER STRENGTH (0.125%) 480 ML BOTTLE TOP SCH (13:53)
[2023-07-26 16:00] VITALS: BP 128/99; TEMP 98.1; O2SAT 99
[2023-07-26] MEDS: LINEZOLID 600 MG TABLET PO SCH (17:53)
[2023-07-26 20:00] VITALS: BP 133/91; TEMP 97.9; O2SAT 98
[2023-07-26] MEDS: ENOXAPARIN SODIUM 100 MG/ML DISP.SYRIN SQ SCH (21:00)
[2023-07-27] VITALS: BP 121/81; TEMP 97.9; O2SAT 98
[2023-07-27] MEDS: IV D5W 1,000 ML IV PRN ×2 (00:03→15:40)
[2023-07-27] MEDS: FERROUS SULFATE (325 MG) 325 MG/TAB TABLET GT SCH ×3 (01:44→17:37)
[2023-07-27] MEDS: CALCIUM ACETATE 667 MG CAP/TAB GT SCH ×3 (01:44→17:37)
[2023-07-27] MEDS: AMIODARONE HCL 200 MG TABLET GT SCH ×3 (03:59→20:14)
[2023-07-27] MEDS: MIDODRINE HCL (5MG) 5 MG TABLET GT SCH ×3 (03:59→19:23)
[2023-07-27 05:00] VITALS: BP 124/71; TEMP 97.7; O2SAT 100
[2023-07-27] MEDS: methylPREDNISolone SOD SUCC 40 MG/ML VIAL IV SCH ×3 (05:32→20:10)
[2023-07-27 06:22] LABS: BASOPHILS % (AUTO) 0.1 % (0.0-2.0); HEMATOCRIT 32 % (33-45); HEMOGLOBIN 10.1 g/dL (11.5-14.8); LYMPHOCYTES # (AUTO) 0.5 K/uL (0.8-4.8); LYMPHOCYTES % (AUTO) 2.2 % (20.0-44.0); MEAN CORPUSCULAR HEMOGLOBIN 29 PG (26.0-33.0); MEAN CORPUSCULAR HGB CONC 31 g/dl (31.0-36.0); MEAN CORPUSCULAR VOLUME 92 fL (82-100); MONOCYTES # (AUTO) 0.5 K/uL (0.1-1.30); MONOCYTES % (AUTO) 2.2 % (2.0-12.0); NEUTROPHILS # (AUTO) 21.1 K/uL (1.8-8.9); NEUTROPHILS % (AUTO) 95.5 % (43.0-81.0); PLATELET COUNT (AUTO) 421 K/uL (150-450); RED BLOOD CELL COUNT(AUTO) 3.49 MIL/uL (4.0-5.2); RED CELL DISTRIBUTION WIDTH 16.1 % (11.5-15.0); WHITE BLOOD COUNT (AUTO) 22.1 K/uL (4.3-11.0)
[2023-07-27 06:47] LABS: CALCIUM, SERUM 8.9 mg/dL (8.5-10.1); CARBON DIOXIDE 26 mmol/L (21-32); CHLORIDE 102 mmol/L (98-107); CREATININE 1.6 mg/dL (0.6-1.3); GLUCOSE 155 mg/dL (74-106); MAGNESIUM 1.8 mg/dL (1.8-2.4); PHOSPHORUS 3.7 mg/dL (2.5-4.9); POTASSIUM 3.8 mmol/L (3.5-5.1); SODIUM SERUM 137 mmol/L (136-145)
[2023-07-27 07:08] LABS: UREA NITROGEN, BLOOD 90 mg/dL (7-18)
[2023-07-27] MEDS: LINEZOLID 600 MG TABLET PO SCH ×2 (07:15→17:37)
[2023-07-27] MEDS: LEVOTHYROXINE SODIUM 50 MCG TABLET GT SCH (07:30)
[2023-07-27] MEDS: PANTOPRAZOLE 40 MG/PACK PACK GT SCH (07:30)
[2023-07-27] MEDS: PROSOURCE / PROSTAT (PYXIS) 30 ML UDC GT SCH ×2 (07:51→17:37)
[2023-07-27 08:00] VITALS: BP 134/98; TEMP 96.1; O2SAT 100
[2023-07-27 08:37] LABS: BAND % (MANUAL) 1 % (0.0-5.0); LYMPHOCYTES % (MANUAL) 1 % (16-48); MONOCYTES % (MANUAL) 4 % (0-11.0); NEUTROPHILS % (MANUAL) 94 (42-76)
[2023-07-27 08:38] LABS: PLATELET ESTIMATE ADEQUATE
[2023-07-27] MEDS: VIT B CMPLX 3/FA/VIT C/BIOTIN 1 TAB TABLET GT SCH (09:00)
[2023-07-27] MEDS: CALCIUM CARB 600MG /VIT D 1 EACH TABLET GT SCH (09:00)
[2023-07-27] MEDS: LACTOBACILLUS RHAMNOSUS GG 1 EACH CAP.SPRINK GT SCH (09:00)
[2023-07-27] MEDS: PREGABALIN 25 MG CAPSULE GT SCH ×2 (09:00→20:11)
[2023-07-27] MEDS: DULOXETINE HCL 20 MG CAPSULE.DR GT SCH (09:00)
[2023-07-27] MEDS: Z GUARD REMEDY 4 OZ OINT TP SCH ×2 (09:48→20:10)
[2023-07-27] MEDS: DAKINS QUARTER STRENGTH (0.125%) 480 ML BOTTLE TOP SCH (09:48)
[2023-07-27 12:00] VITALS: BP 153/88; TEMP 98; O2SAT 100
[2023-07-27] MEDS: MEROPENEM 500 MG in IV NS 0.9% 50 ML IV SCH (13:27)
[2023-07-27 16:00] VITALS: BP 153/88; TEMP 98; O2SAT 100
[2023-07-27] MEDS: NEPRO 1,000 ML BOTTLE GT PRN (17:51)
[2023-07-27 20:00] VITALS: BP 142/75; TEMP 98.6; O2SAT 97
[2023-07-27] MEDS: ENOXAPARIN SODIUM 100 MG/ML DISP.SYRIN SQ SCH (20:14)
[2023-07-28] VITALS: BP 139/95; TEMP 98.1; O2SAT 95
[2023-07-28] MEDS: MEROPENEM 500 MG in IV NS 0.9% 50 ML IV SCH ×2 (00:30→12:13)
[2023-07-28] MEDS: FERROUS SULFATE (325 MG) 325 MG/TAB TABLET GT SCH ×3 (00:30→17:12)
[2023-07-28] MEDS: CALCIUM ACETATE 667 MG CAP/TAB GT SCH ×3 (00:30→17:12)
[2023-07-28] MEDS: MIDODRINE HCL (5MG) 5 MG TABLET GT SCH ×3 (03:23→20:09)
[2023-07-28] MEDS: AMIODARONE HCL 200 MG TABLET GT SCH ×3 (03:38→20:10)
[2023-07-28 04:00] VITALS: BP 138/81; TEMP 97.6; O2SAT 95
[2023-07-28] MEDS: methylPREDNISolone SOD SUCC 40 MG/ML VIAL IV SCH ×3 (05:05→20:11)
[2023-07-28] MEDS: LINEZOLID 600 MG TABLET PO SCH ×2 (05:05→17:12)
[2023-07-28] MEDS: IV D5W 1,000 ML IV PRN (05:21)
[2023-07-28 06:12] LABS: BASOPHILS % (AUTO) 0.1 % (0.0-2.0); HEMATOCRIT 33 % (33-45); HEMOGLOBIN 10.4 g/dL (11.5-14.8); LYMPHOCYTES # (AUTO) 0.4 K/uL (0.8-4.8); LYMPHOCYTES % (AUTO) 1.9 % (20.0-44.0); MEAN CORPUSCULAR HEMOGLOBIN 29 PG (26.0-33.0); MEAN CORPUSCULAR HGB CONC 32 g/dl (31.0-36.0); MEAN CORPUSCULAR VOLUME 91 fL (82-100); MONOCYTES # (AUTO) 0.6 K/uL (0.1-1.30); MONOCYTES % (AUTO) 2.7 % (2.0-12.0); NEUTROPHILS # (AUTO) 20.3 K/uL (1.8-8.9); NEUTROPHILS % (AUTO) 95.3 % (43.0-81.0); PLATELET COUNT (AUTO) 411 K/uL (150-450); RED BLOOD CELL COUNT(AUTO) 3.59 MIL/uL (4.0-5.2); RED CELL DISTRIBUTION WIDTH 16.1 % (11.5-15.0); WHITE BLOOD COUNT (AUTO) 21.3 K/uL (4.3-11.0)
[2023-07-28 06:21] LABS: CALCIUM, SERUM 8.8 mg/dL (8.5-10.1); CARBON DIOXIDE 24 mmol/L (21-32); CHLORIDE 96 mmol/L (98-107); CREATININE 1.4 mg/dL (0.6-1.3); GLUCOSE 182 mg/dL (74-106); POTASSIUM 4.3 mmol/L (3.5-5.1); SODIUM SERUM 132 mmol/L (136-145)
[2023-07-28 06:29] LABS: UREA NITROGEN, BLOOD 89 mg/dL (7-18)
[2023-07-28] MEDS: LEVOTHYROXINE SODIUM 50 MCG TABLET GT SCH (07:30)
[2023-07-28] MEDS: PANTOPRAZOLE 40 MG/PACK PACK GT SCH (07:30)
[2023-07-28 08:00] VITALS: BP 149/82; TEMP 97.9; O2SAT 95
[2023-07-28] MEDS: PROSOURCE / PROSTAT (PYXIS) 30 ML UDC GT SCH ×2 (08:00→17:12)
[2023-07-28] MEDS: CALCIUM CARB 600MG /VIT D 1 EACH TABLET GT SCH (09:04)
[2023-07-28] MEDS: LACTOBACILLUS RHAMNOSUS GG 1 EACH CAP.SPRINK GT SCH (09:04)
[2023-07-28] MEDS: DULOXETINE HCL 20 MG CAPSULE.DR GT SCH (09:04)
[2023-07-28] MEDS: VIT B CMPLX 3/FA/VIT C/BIOTIN 1 TAB TABLET GT SCH (09:04)
[2023-07-28] MEDS: PREGABALIN 25 MG CAPSULE GT SCH ×2 (09:09→20:11)
[2023-07-28 09:25] LABS: BAND % (MANUAL) 5 % (0.0-5.0); LYMPHOCYTES % (MANUAL) 4 % (16-48); MONOCYTES % (MANUAL) 2 % (0-11.0); NEUTROPHILS % (MANUAL) 89 (42-76); PLATELET ESTIMATE ADEQUATE
[2023-07-28 09:26] LABS: ANISOCYTOSIS 1+
[2023-07-28] MEDS: DAKINS QUARTER STRENGTH (0.125%) 480 ML BOTTLE TOP SCH (10:21)
[2023-07-28] MEDS: Z GUARD REMEDY 4 OZ OINT TP SCH ×2 (10:22→20:13)
[2023-07-28 12:00] VITALS: BP 123/83; TEMP 98; O2SAT 95
[2023-07-28 16:00] VITALS: BP 129/50; TEMP 98.2; O2SAT 95
[2023-07-28] MEDS: IV NS 0.9% 250 ML IV PRN (17:00)
[2023-07-28 20:00] VITALS: BP 118/40; TEMP 97.5; O2SAT 95
[2023-07-28] MEDS: ENOXAPARIN SODIUM 100 MG/ML DISP.SYRIN SQ SCH ×2 (20:12→20:51)
[2023-07-29] VITALS: BP 110/52; TEMP 97; O2SAT 97
[2023-07-29] MEDS: FERROUS SULFATE (325 MG) 325 MG/TAB TABLET GT SCH ×3 (01:35→17:49)
[2023-07-29] MEDS: MEROPENEM 500 MG in IV NS 0.9% 50 ML IV SCH ×2 (01:35→14:11)
[2023-07-29] MEDS: CALCIUM ACETATE 667 MG CAP/TAB GT SCH ×3 (01:36→17:49)
[2023-07-29 04:00] VITALS: BP 138/96; TEMP 97.8; O2SAT 97
[2023-07-29] MEDS: MIDODRINE HCL (5MG) 5 MG TABLET GT SCH ×3 (04:11→19:23)
[2023-07-29] MEDS: AMIODARONE HCL 200 MG TABLET GT SCH ×3 (04:11→20:16)
[2023-07-29] MEDS: NEPRO 1,000 ML BOTTLE GT PRN (04:42)
[2023-07-29] MEDS: methylPREDNISolone SOD SUCC 40 MG/ML VIAL IV SCH ×3 (05:03→20:16)
[2023-07-29] MEDS: LINEZOLID 600 MG TABLET PO SCH ×2 (05:19→17:50)
[2023-07-29 06:19] LABS: HEMATOCRIT 33 % (33-45); HEMOGLOBIN 10.6 g/dL (11.5-14.8); LYMPHOCYTES # (AUTO) 0.3 K/uL (0.8-4.8); LYMPHOCYTES % (AUTO) 2.3 % (20.0-44.0); MEAN CORPUSCULAR HEMOGLOBIN 29 PG (26.0-33.0); MEAN CORPUSCULAR HGB CONC 32 g/dl (31.0-36.0); MEAN CORPUSCULAR VOLUME 91 fL (82-100); MONOCYTES # (AUTO) 0.5 K/uL (0.1-1.30); MONOCYTES % (AUTO) 3.5 % (2.0-12.0); NEUTROPHILS # (AUTO) 14.1 K/uL (1.8-8.9); NEUTROPHILS % (AUTO) 94.2 % (43.0-81.0); PLATELET COUNT (AUTO) 434 K/uL (150-450); RED BLOOD CELL COUNT(AUTO) 3.65 MIL/uL (4.0-5.2); RED CELL DISTRIBUTION WIDTH 16.7 % (11.5-15.0); WHITE BLOOD COUNT (AUTO) 14.9 K/uL (4.3-11.0)
[2023-07-29 06:47] LABS: ALANINE AMINOTRANSFERASE 79 U/L (12-78); ALKALINE PHOSPHATASE 182 U/L (46-116); ASPARTATE AMINOTRANSFERASE 41 U/L (15-37); BILIRUBIN,TOTAL 0.4 mg/dL (0.2-1.0); CALCIUM, SERUM 8.9 mg/dL (8.5-10.1); CARBON DIOXIDE 27 mmol/L (21-32); CHLORIDE 100 mmol/L (98-107); CREATININE 1.5 mg/dL (0.6-1.3); GLUCOSE 126 mg/dL (74-106); MAGNESIUM 1.8 mg/dL (1.8-2.4); PHOSPHORUS 4.2 mg/dL (2.5-4.9); POTASSIUM 4.2 mmol/L (3.5-5.1); SODIUM SERUM 135 mmol/L (136-145); TOTAL PROTEIN, SERUM 6.2 g/dL (6.4-8.2)
[2023-07-29 07:06] LABS: UREA NITROGEN, BLOOD 88 mg/dL (7-18)
[2023-07-29 07:28] LABS: LYMPHOCYTES % (MANUAL) 3 % (16-48); MONOCYTES % (MANUAL) 1 % (0-11.0); MYELOCYTES % 1 % (0-0); NEUTROPHILS % (MANUAL) 95 (42-76); PLATELET ESTIMATE ADEQUATE
[2023-07-29 08:00] VITALS: BP 126/70; TEMP 98.1; O2SAT 97
[2023-07-29] MEDS: LACTOBACILLUS RHAMNOSUS GG 1 EACH CAP.SPRINK GT SCH (08:48)
[2023-07-29] MEDS: VIT B CMPLX 3/FA/VIT C/BIOTIN 1 TAB TABLET GT SCH (08:48)
[2023-07-29] MEDS: PANTOPRAZOLE 40 MG/PACK PACK GT SCH (08:48)
[2023-07-29] MEDS: CALCIUM CARB 600MG /VIT D 1 EACH TABLET GT SCH (08:48)
[2023-07-29] MEDS: PREGABALIN 25 MG CAPSULE GT SCH ×2 (08:48→20:16)
[2023-07-29] MEDS: LEVOTHYROXINE SODIUM 50 MCG TABLET GT SCH (08:49)
[2023-07-29] MEDS: PROSOURCE / PROSTAT (PYXIS) 30 ML UDC GT SCH ×2 (08:50→17:50)
[2023-07-29] MEDS: DULOXETINE HCL 20 MG CAPSULE.DR GT SCH (08:50)
[2023-07-29] MEDS: DAKINS QUARTER STRENGTH (0.125%) 480 ML BOTTLE TOP SCH (09:38)
[2023-07-29] MEDS: Z GUARD REMEDY 4 OZ OINT TP SCH ×2 (09:39→20:18)
[2023-07-29 12:00] VITALS: BP 130/84; TEMP 97.9; O2SAT 97
[2023-07-29] MEDS: MICAFUNGIN SODIUM 100 MG in IV NS 0.9% 100 ML IV SCH (12:26)
[2023-07-29 16:00] VITALS: BP 140/76; TEMP 97.7; O2SAT 97
[2023-07-29 20:00] VITALS: BP 145/59; TEMP 97.4; O2SAT 98
[2023-07-29] MEDS: ENOXAPARIN SODIUM 100 MG/ML DISP.SYRIN SQ SCH (20:47)
[2023-07-29] MEDS ORDERED: MIDODRINE HCL (5MG) 5 MG TABLET GT PRN (21:30)
[2023-07-30] VITALS: BP 132/74; TEMP 98.4; O2SAT 99
[2023-07-30] MEDS: FERROUS SULFATE (325 MG) 325 MG/TAB TABLET GT SCH ×3 (01:05→17:36)
[2023-07-30] MEDS: CALCIUM ACETATE 667 MG CAP/TAB GT SCH ×3 (01:05→17:36)
[2023-07-30] MEDS: MEROPENEM 500 MG in IV NS 0.9% 50 ML IV SCH ×2 (01:06→13:27)
[2023-07-30] MEDS: IV NS 0.9% 250 ML IV PRN (03:25)
[2023-07-30] MEDS: AMIODARONE HCL 200 MG TABLET GT SCH ×3 (03:34→20:22)
[2023-07-30 04:00] VITALS: BP 126/70; TEMP 98.4; O2SAT 100
[2023-07-30] MEDS: LINEZOLID 600 MG TABLET PO SCH ×3 (05:25→20:19)
[2023-07-30] MEDS: methylPREDNISolone SOD SUCC 40 MG/ML VIAL IV SCH ×3 (05:25→20:19)
[2023-07-30 06:55] LABS: HEMATOCRIT 34 % (33-45); HEMOGLOBIN 10.8 g/dL (11.5-14.8); LYMPHOCYTES # (AUTO) 0.3 K/uL (0.8-4.8); LYMPHOCYTES % (AUTO) 1.8 % (20.0-44.0); MEAN CORPUSCULAR HEMOGLOBIN 29 PG (26.0-33.0); MEAN CORPUSCULAR HGB CONC 32 g/dl (31.0-36.0); MEAN CORPUSCULAR VOLUME 91 fL (82-100); MONOCYTES # (AUTO) 0.5 K/uL (0.1-1.30); MONOCYTES % (AUTO) 3.1 % (2.0-12.0); NEUTROPHILS # (AUTO) 14.1 K/uL (1.8-8.9); NEUTROPHILS % (AUTO) 95.1 % (43.0-81.0); PLATELET COUNT (AUTO) 424 K/uL (150-450); RED CELL DISTRIBUTION WIDTH 16.6 % (11.5-15.0); WHITE BLOOD COUNT (AUTO) 14.8 K/uL (4.3-11.0)
[2023-07-30 07:42] LABS: CALCIUM, SERUM 9.2 mg/dL (8.5-10.1); CARBON DIOXIDE 25 mmol/L (21-32); CHLORIDE 101 mmol/L (98-107); CREATININE 1.4 mg/dL (0.6-1.3); GLUCOSE 128 mg/dL (74-106); MAGNESIUM 1.8 mg/dL (1.8-2.4); PHOSPHORUS 4.3 mg/dL (2.5-4.9); POTASSIUM 4.2 mmol/L (3.5-5.1); SODIUM SERUM 136 mmol/L (136-145)
[2023-07-30 07:44] LABS: UREA NITROGEN, BLOOD 89 mg/dL (7-18)
[2023-07-30 08:00] VITALS: BP 131/87; TEMP 97.6; O2SAT 99
[2023-07-30] MEDS: DAKINS QUARTER STRENGTH (0.125%) 480 ML BOTTLE TOP SCH (08:39)
[2023-07-30] MEDS: Z GUARD REMEDY 4 OZ OINT TP SCH ×2 (08:39→20:45)
[2023-07-30] MEDS: CALCIUM CARB 600MG /VIT D 1 EACH TABLET GT SCH (08:43)
[2023-07-30] MEDS: PROSOURCE / PROSTAT (PYXIS) 30 ML UDC GT SCH ×2 (08:43→17:36)
[2023-07-30] MEDS: LACTOBACILLUS RHAMNOSUS GG 1 EACH CAP.SPRINK GT SCH (08:43)
[2023-07-30] MEDS: DULOXETINE HCL 20 MG CAPSULE.DR GT SCH (08:43)
[2023-07-30] MEDS: PREGABALIN 25 MG CAPSULE GT SCH ×2 (08:44→20:18)
[2023-07-30] MEDS: VIT B CMPLX 3/FA/VIT C/BIOTIN 1 TAB TABLET GT SCH (08:44)
[2023-07-30] MEDS: PANTOPRAZOLE 40 MG/PACK PACK GT SCH (08:45)
[2023-07-30] MEDS: LEVOTHYROXINE SODIUM 50 MCG TABLET GT SCH (08:45)
[2023-07-30 09:37] LABS: LYMPHOCYTES % (MANUAL) 1 % (16-48); MONOCYTES % (MANUAL) 1 % (0-11.0); MYELOCYTES % 3 % (0-0); NEUTROPHILS % (MANUAL) 95 (42-76); PLATELET ESTIMATE ADEQUATE
[2023-07-30] MEDS: MICAFUNGIN SODIUM 100 MG in IV NS 0.9% 100 ML IV SCH (11:51)
[2023-07-30 12:00] VITALS: BP 124/99; TEMP 97.4; O2SAT 99
[2023-07-30 16:00] VITALS: BP 140/75; TEMP 97.7; O2SAT 99
[2023-07-30 20:00] VITALS: BP 111/79; TEMP 98.2; O2SAT 95
[2023-07-30] MEDS: ENOXAPARIN SODIUM 100 MG/ML DISP.SYRIN SQ SCH (20:43)
[2023-07-31] VITALS: BP 124/46; TEMP 97.2; O2SAT 95
[2023-07-31] MEDS: CALCIUM ACETATE 667 MG CAP/TAB GT SCH ×3 (00:47→17:17)
[2023-07-31] MEDS: FERROUS SULFATE (325 MG) 325 MG/TAB TABLET GT SCH ×3 (00:47→17:17)
[2023-07-31] MEDS: MEROPENEM 500 MG in IV NS 0.9% 50 ML IV SCH ×2 (00:47→13:21)
[2023-07-31] MEDS: AMIODARONE HCL 200 MG TABLET GT SCH ×3 (02:57→19:54)
[2023-07-31 04:00] VITALS: BP 121/75; TEMP 98; O2SAT 95
[2023-07-31] MEDS: LINEZOLID 600 MG TABLET PO SCH (06:00)
[2023-07-31] MEDS: PANTOPRAZOLE 40 MG/PACK PACK GT SCH (06:00)
[2023-07-31 06:55] LABS: BASOPHILS % (AUTO) 0.2 % (0.0-2.0); HEMATOCRIT 35 % (33-45); HEMOGLOBIN 11.3 g/dL (11.5-14.8); LYMPHOCYTES # (AUTO) 0.4 K/uL (0.8-4.8); LYMPHOCYTES % (AUTO) 1.7 % (20.0-44.0); MEAN CORPUSCULAR HEMOGLOBIN 29 PG (26.0-33.0); MEAN CORPUSCULAR HGB CONC 32 g/dl (31.0-36.0); MEAN CORPUSCULAR VOLUME 91 fL (82-100); MONOCYTES # (AUTO) 0.7 K/uL (0.1-1.30); NEUTROPHILS # (AUTO) 22.7 K/uL (1.8-8.9); NEUTROPHILS % (AUTO) 95.1 % (43.0-81.0); PLATELET COUNT (AUTO) 362 K/uL (150-450); RED BLOOD CELL COUNT(AUTO) 3.86 MIL/uL (4.0-5.2); RED CELL DISTRIBUTION WIDTH 17.5 % (11.5-15.0); WHITE BLOOD COUNT (AUTO) 23.9 K/uL (4.3-11.0)
[2023-07-31 07:25] LABS: CALCIUM, SERUM 9.4 mg/dL (8.5-10.1); CARBON DIOXIDE 26 mmol/L (21-32); CHLORIDE 102 mmol/L (98-107); CREATININE 1.4 mg/dL (0.6-1.3); GLUCOSE 112 mg/dL (74-106); MAGNESIUM 1.9 mg/dL (1.8-2.4); PHOSPHORUS 4.5 mg/dL (2.5-4.9); POTASSIUM 4.2 mmol/L (3.5-5.1); SODIUM SERUM 137 mmol/L (136-145)
[2023-07-31 07:27] LABS: UREA NITROGEN, BLOOD 85 mg/dL (7-18)
[2023-07-31 08:00] VITALS: BP 101/45; TEMP 97.7; O2SAT 95
[2023-07-31] MEDS: DULOXETINE HCL 20 MG CAPSULE.DR GT SCH (09:10)
[2023-07-31] MEDS: PREGABALIN 25 MG CAPSULE GT SCH ×2 (09:11→20:12)
[2023-07-31] MEDS: Z GUARD REMEDY 4 OZ OINT TP SCH ×2 (09:11→20:28)
[2023-07-31] MEDS: DAKINS QUARTER STRENGTH (0.125%) 480 ML BOTTLE TOP SCH (09:11)
[2023-07-31] MEDS: VIT B CMPLX 3/FA/VIT C/BIOTIN 1 TAB TABLET GT SCH (09:11)
[2023-07-31] MEDS: PROSOURCE / PROSTAT (PYXIS) 30 ML UDC GT SCH (09:12)
[2023-07-31] MEDS: LACTOBACILLUS RHAMNOSUS GG 1 EACH CAP.SPRINK GT SCH (09:12)
[2023-07-31] MEDS: methylPREDNISolone SOD SUCC 40 MG/ML VIAL IV SCH ×2 (09:12→20:12)
[2023-07-31] MEDS: LEVOTHYROXINE SODIUM 50 MCG TABLET GT SCH (09:12)
[2023-07-31] MEDS: CALCIUM CARB 600MG /VIT D 1 EACH TABLET GT SCH (09:12)
[2023-07-31] MEDS: MICAFUNGIN SODIUM 100 MG in IV NS 0.9% 100 ML IV SCH (11:26)
[2023-07-31 12:00] VITALS: BP 137/78; TEMP 97.7; O2SAT 100
[2023-07-31 16:00] VITALS: BP 117/86; TEMP 97.8; O2SAT 100
[2023-07-31] MEDS: NEPRO 1,000 ML BOTTLE GT PRN (16:57)
[2023-07-31 20:00] VITALS: BP 135/95; TEMP 98.3; O2SAT 100
[2023-07-31] MEDS: ENOXAPARIN SODIUM 100 MG/ML DISP.SYRIN SQ SCH (21:00)
[2023-08-01] VITALS: BP 148/98; TEMP 97.5; O2SAT 100
[2023-08-01] MEDS: MEROPENEM 500 MG in IV NS 0.9% 50 ML IV SCH ×2 (01:00→13:15)
[2023-08-01] MEDS: CALCIUM ACETATE 667 MG CAP/TAB GT SCH ×3 (01:00→17:49)
[2023-08-01] MEDS: FERROUS SULFATE (325 MG) 325 MG/TAB TABLET GT SCH ×3 (01:00→17:49)
[2023-08-01] MEDS: AMIODARONE HCL 200 MG TABLET GT SCH ×3 (03:00→20:10)
[2023-08-01 04:00] VITALS: BP 148/98; TEMP 97.5; O2SAT 100
[2023-08-01] MEDS: LINEZOLID 600 MG TABLET PO SCH ×2 (06:08→17:49)
[2023-08-01 08:00] VITALS: BP 137/92; TEMP 98.2; O2SAT 99
[2023-08-01] MEDS: CALCIUM CARB 600MG /VIT D 1 EACH TABLET GT SCH (08:15)
[2023-08-01] MEDS: PANTOPRAZOLE 40 MG/PACK PACK GT SCH (08:15)
[2023-08-01] MEDS: VIT B CMPLX 3/FA/VIT C/BIOTIN 1 TAB TABLET GT SCH (08:15)
[2023-08-01] MEDS: DULOXETINE HCL 20 MG CAPSULE.DR GT SCH (08:15)
[2023-08-01] MEDS: PREGABALIN 25 MG CAPSULE GT SCH ×2 (08:16→21:37)
[2023-08-01] MEDS: methylPREDNISolone SOD SUCC 40 MG/ML VIAL IV SCH ×2 (08:16→21:37)
[2023-08-01] MEDS: LACTOBACILLUS RHAMNOSUS GG 1 EACH CAP.SPRINK GT SCH (08:20)
[2023-08-01] MEDS: LEVOTHYROXINE SODIUM 50 MCG TABLET GT SCH (08:20)
[2023-08-01] MEDS: PROSOURCE / PROSTAT (PYXIS) 30 ML UDC GT SCH (08:24)
[2023-08-01] MEDS: DAKINS QUARTER STRENGTH (0.125%) 480 ML BOTTLE TOP SCH (08:25)
[2023-08-01] MEDS: Z GUARD REMEDY 4 OZ OINT TP SCH ×2 (08:25→21:38)
[2023-08-01 12:00] VITALS: BP 115/79; TEMP 98.6; O2SAT 100
[2023-08-01] MEDS: MICAFUNGIN SODIUM 100 MG in IV NS 0.9% 100 ML IV SCH (12:07)
[2023-08-01 16:00] VITALS: BP 148/62; TEMP 98.2; O2SAT 100
[2023-08-01 20:00] VITALS: BP 116/93; TEMP 97.6; O2SAT 97
[2023-08-01] MEDS: ENOXAPARIN SODIUM 100 MG/ML DISP.SYRIN SQ SCH (21:00)
[2023-08-01] MEDS: NEPRO 1,000 ML BOTTLE GT PRN (21:52)
[2023-08-02] VITALS: BP 132/69; TEMP 97.3; O2SAT 93
[2023-08-02] MEDS: MEROPENEM 500 MG in IV NS 0.9% 50 ML IV SCH ×2 (00:36→12:29)
[2023-08-02] MEDS: CALCIUM ACETATE 667 MG CAP/TAB GT SCH ×3 (00:36→16:21)
[2023-08-02] MEDS: FERROUS SULFATE (325 MG) 325 MG/TAB TABLET GT SCH ×3 (00:36→16:21)
[2023-08-02] MEDS: AMIODARONE HCL 200 MG TABLET GT SCH ×3 (03:29→19:22)
[2023-08-02 04:00] VITALS: BP 137/85; TEMP 97.5; O2SAT 100
[2023-08-02] MEDS: LINEZOLID 600 MG TABLET PO SCH ×2 (05:57→17:32)
[2023-08-02 06:59] LABS: BASOPHILS % (AUTO) 0.1 % (0.0-2.0); HEMATOCRIT 33 % (33-45); HEMOGLOBIN 10.5 g/dL (11.5-14.8); LYMPHOCYTES # (AUTO) 0.3 K/uL (0.8-4.8); LYMPHOCYTES % (AUTO) 1.9 % (20.0-44.0); MEAN CORPUSCULAR HEMOGLOBIN 29 PG (26.0-33.0); MEAN CORPUSCULAR HGB CONC 32 g/dl (31.0-36.0); MEAN CORPUSCULAR VOLUME 92 fL (82-100); MONOCYTES # (AUTO) 0.5 K/uL (0.1-1.30); MONOCYTES % (AUTO) 2.7 % (2.0-12.0); NEUTROPHILS # (AUTO) 16.5 K/uL (1.8-8.9); NEUTROPHILS % (AUTO) 95.3 % (43.0-81.0); PLATELET COUNT (AUTO) 303 K/uL (150-450); RED BLOOD CELL COUNT(AUTO) 3.59 MIL/uL (4.0-5.2); RED CELL DISTRIBUTION WIDTH 17.9 % (11.5-15.0); WHITE BLOOD COUNT (AUTO) 17.3 K/uL (4.3-11.0)
[2023-08-02] MEDS: LEVOTHYROXINE SODIUM 50 MCG TABLET GT SCH (07:38)
[2023-08-02] MEDS: PANTOPRAZOLE 40 MG/PACK PACK GT SCH (07:38)
[2023-08-02 08:00] VITALS: BP 142/78; TEMP 98.3; O2SAT 100
[2023-08-02] MEDS: CALCIUM CARB 600MG /VIT D 1 EACH TABLET GT SCH (08:06)
[2023-08-02] MEDS: methylPREDNISolone SOD SUCC 40 MG/ML VIAL IV SCH (08:06)
[2023-08-02] MEDS: PREGABALIN 25 MG CAPSULE GT SCH ×2 (08:06→21:11)
[2023-08-02] MEDS: LACTOBACILLUS RHAMNOSUS GG 1 EACH CAP.SPRINK GT SCH (08:06)
[2023-08-02] MEDS: DULOXETINE HCL 20 MG CAPSULE.DR GT SCH (08:06)
[2023-08-02] MEDS: VIT B CMPLX 3/FA/VIT C/BIOTIN 1 TAB TABLET GT SCH (08:06)
[2023-08-02 08:08] LABS: CALCIUM, SERUM 9.1 mg/dL (8.5-10.1); CARBON DIOXIDE 24 mmol/L (21-32); CHLORIDE 106 mmol/L (98-107); CREATININE 1.4 mg/dL (0.6-1.3); GLUCOSE 118 mg/dL (74-106); MAGNESIUM 1.9 mg/dL (1.8-2.4); PHOSPHORUS 4.2 mg/dL (2.5-4.9); POTASSIUM 4.6 mmol/L (3.5-5.1); SODIUM SERUM 139 mmol/L (136-145)
[2023-08-02] MEDS: DAKINS QUARTER STRENGTH (0.125%) 480 ML BOTTLE TOP SCH (08:08)
[2023-08-02] MEDS: PROSOURCE / PROSTAT (PYXIS) 30 ML UDC GT SCH (08:09)
[2023-08-02 08:17] LABS: UREA NITROGEN, BLOOD 87 mg/dL (7-18)
[2023-08-02] MEDS: Z GUARD REMEDY 4 OZ OINT TP SCH ×2 (10:18→21:29)
[2023-08-02] MEDS ORDERED: methylPREDNISolone SOD SUCC 40 MG/ML VIAL IV SCH (10:30)
[2023-08-02] MEDS: MICAFUNGIN SODIUM 100 MG in IV NS 0.9% 100 ML IV SCH (11:31)
[2023-08-02 12:00] VITALS: BP 140/70; TEMP 98.2; O2SAT 100
[2023-08-02 16:00] VITALS: BP 140/62; TEMP 98.7; O2SAT 100
[2023-08-02 19:22] VITALS: BP 124/73
[2023-08-02] MEDS: ENOXAPARIN SODIUM 100 MG/ML DISP.SYRIN SQ SCH (21:28)
== END 2023-08-02 23:09 | DRG 698 ==
LOC: ER 01:26 → TELE 10:11 → ICU 07-12 06:59 → TELE1 07-14 13:49 → TELE-TD 07-16 23:18 → ICU 07-17 14:10 → TELE1 07-22 14:57
PROVIDERS: ADMIT Nurse Practitioner Acute Care; ATTEND Nurse Practitioner Acute Care
PROC: 0T25X0Z Change Drainage Device in Kidney, External Approach (ICD-10-PCS; principal; 2023-07-11)
PROC: 05H633Z Insertion of Infusion Device into Left Subclavian Vein, Percutaneous Approach (ICD-10-PCS; 2023-07-12)
PROC: B547ZZA Ultrasonography of Left Subclavian Vein, Guidance (ICD-10-PCS; 2023-07-12)
PROC: 05H533Z Insertion of Infusion Device into Right Subclavian Vein, Percutaneous Approach (ICD-10-PCS; 2023-07-15)
PROC: B546ZZA Ultrasonography of Right Subclavian Vein, Guidance (ICD-10-PCS; 2023-07-15)
PROC: 05H633Z Insertion of Infusion Device into Left Subclavian Vein, Percutaneous Approach (ICD-10-PCS; 2023-07-29)
PROC: B547ZZA Ultrasonography of Left Subclavian Vein, Guidance (ICD-10-PCS; 2023-07-29)
DX: T83.092A Other mechanical complication of nephrostomy catheter, initial encounter (principal); A41.9 Sepsis, unspecified organism; E43 Unspecified severe protein-calorie malnutrition; G93.41 Metabolic encephalopathy; D68.69 Other thrombophilia; E87.4 Mixed disorder of acid-base balance; B49 Unspecified mycosis; N39.0 Urinary tract infection, site not specified; I13.0 Hypertensive heart and chronic kidney disease with heart failure and stage 1 through stage 4 chronic kidney disease, or unspecified chronic kidney disease; Z16.21 Resistance to vancomycin; N13.6 Pyonephrosis; N17.9 Acute kidney failure, unspecified; E87.1 Hypo-osmolality and hyponatremia; J90 Pleural effusion, not elsewhere classified; E87.20 Acidosis, unspecified; E27.40 Unspecified adrenocortical insufficiency; I82.611 Acute embolism and thrombosis of superficial veins of right upper extremity; Y73.2 Prosthetic and other implants, materials and accessory gastroenterology and urology devices associated with adverse incidents; Z87.440 Personal history of urinary (tract) infections; B95.2 Enterococcus as the cause of diseases classified elsewhere; E03.9 Hypothyroidism, unspecified; E11.22 Type 2 diabetes mellitus with diabetic chronic kidney disease; E83.51 Hypocalcemia; E86.1 Hypovolemia; E87.5 Hyperkalemia; E88.09 Other disorders of plasma-protein metabolism, not elsewhere classified; E11.51 Type 2 diabetes mellitus with diabetic peripheral angiopathy without gangrene; E83.39 Other disorders of phosphorus metabolism; I48.91 Unspecified atrial fibrillation; I50.9 Heart failure, unspecified; J44.9 Chronic obstructive pulmonary disease, unspecified; N18.9 Chronic kidney disease, unspecified; Z74.01 Bed confinement status; Z85.41 Personal history of malignant neoplasm of cervix uteri; Z22.322 Carrier or suspected carrier of Methicillin resistant Staphylococcus aureus; Z88.0 Allergy status to penicillin; Z93.3 Colostomy status; Z93.2 Ileostomy status; Z20.822 Contact with and (suspected) exposure to COVID-19; F03.90 Unspecified dementia, unspecified severity, without behavioral disturbance, psychotic disturbance, mood disturbance, and anxiety; L89.626 Pressure-induced deep tissue damage of left heel; L89.616 Pressure-induced deep tissue damage of right heel; S91.105A Unspecified open wound of left lesser toe(s) without damage to nail, initial encounter; X58.XXXA Exposure to other specified factors, initial encounter; Y93.9 Activity, unspecified; Y92.129 Unspecified place in nursing home as the place of occurrence of the external cause; I25.2 Old myocardial infarction; R21 Rash and other nonspecific skin eruption; F09 Unspecified mental disorder due to known physiological condition; I95.9 Hypotension, unspecified; Z68.39 Body mass index [BMI] 39.0-39.9, adult
CPT/HCPCS: 36410; 36415; 36600; 50435; 70450-TC; 71045-TC; 76770-TC; 80048-TC; 80053-TC; 80076-TC; 80202-TC; 82436-TC; 82533; 82803-TC; 82962-TC; 83605-TC; 83735-TC; 84100-TC; 84132-TC; 84133-TC; 84300-TC; 84484-TC; 85025-TC; 85730-TC; 87040-TC; 87081-TC; 87086-TC; 92526; 92611-TC; 93971-TC; 94799-TC; A4216; A4223; A4349; A4624; A6253; A6403; A9563; C9803; G0378; J0282; J0692; J1644; J1650; J1720; J2020; J2185; J2248; J2920; J3370; J3475; J3480; J3490; J7030; J7040; J7042; J7050; J7060; J7070; Q9967